=== PATIENT | male | born 1955 | race Hispanic/Latino ===

== ENCOUNTER 2021-09-18 16:05 | Inpatient (IN) | payer OTHER ==
--- NOTE | 2021-09-18 12:57 | R.PREADM ---
PRE-ADMISSION SCREENING FORM SCREENING DATE AND TIME 09/18/2021 08:45 (INTERACTIVE PROJECT MANAGER) ANTICIPATED REHAB ADMISSION DATE 09/20/2021 REFERRING FACILITY [facility] REFERRAL DATE AND TIME 09/17/2021 02:47 (INTERACTIVE PROJECT MANAGER) REFERRAL ROOM# [id number] ACUTE ADMIT DATE 09/15/2021 Previous Rehabilitation(s): No. 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 Charli Quiroga M.D. MR# [id number] NAME MICHEAL LIN ADDRESS [address] [place] [address] PHONE [facility] [id number] DATE OF 1955 AGE 66 SSN# [id number] GENDER male MARITAL STATUS Single (Never ) ADMIT FROM 02 - [facility] PRE-HOSPITAL LIVING SETTING 01 - Home (private home/apt. board/care, assisted living, alf, transitional living) HOME TYPE AND DETAILS Type of home: single family house # of steps to enter the residence: 0 # of steps within the residence: 0 # of levels in the residence: 1 PRE-HOSPITAL LIVING WITH Alone FAMILY SUPPORT Yes PRIMARY FAMILY CONTACT NAME CHAR WYNNE PRIMARY FAMILY CONTACT PHONE PRIMARY FAMILY CONTACT RELATIONSHIP Brother PHONE PRIMARY FAMILY CONTACT ON ADM.? no IS PRIMARY FAMILY CONTACT AUTH. REP.? no 1ST EMERGENCY CONTACT CHAR WYNNE 1ST CONTACT PHONE 1ST CONTACT RELATIONSHIP Brother PHONE 1ST CONTACT ON ADM. no IS 1ST CONTACT AUTH. REP.? no PHONE 2ND CONTACT ON ADM.? no PATIENT EMPLOYMENT STATUS Retired (for age) PATIENT EMPLOYER No Employer PAYOR INFORMATION: 1ST PAYOR NAME MEDICARE 1ST PAYOR PHONE [phone] 1ST PAYOR INJURY/ILLNESS DUE TO ACCIDENT? No ANOTHER DEMOCRAT RESPONSIBLE? No PRIMARY REHAB/ACUTE DIAGNOSIS: STROKE ONSET DATE 09/15/2021 REHAB IMPAIRMENT CATEGORY (KATELYNN): 01 Stroke (STR) MEETS 60% rule AFFECTED EXTREMITIES: RLE, and RUE PRIMARY DIAGNOSIS-RELATED SURGERIES: N/A RISK FOR COMPLICATIONS: - N/A HTN DM HPLD ACTIVE SMOKING SUMMARY OF ACUTE HOSPITALIZATION: Pt. is a 66 yo Right-handed male. On 09/15/2021 Pt. presented to [facility] with sudden onset of right-side weakness. On 09/15/2021 he was admitted to [facility] with diagnosis STROKE. His impairment category is Stroke 01 - Right Body (Left Brain) (01.2). Pre-morbidly, Pt. was independent/mod-I in Locomotion, Social Cognition, Balance, Transfers Control, and Safety Awareness; and he had good Sphincter Control, Self-Care, and Communication. Currently, he has deficits of Locomotion, Safety Awareness, Social Cognition, Balance, Transfers Cont rol, Sphincter Control, Self-Care, Endurance, and Communication. Pt. is now referred to [facility] for acute in-patient rehabilitation in order to maximize patient's functional independence in activities of daily living, strength, ROM, and mobi lity. Patient has realistic goal of being discharged at assistance level 7-Ind to reside at Home with Pt s elf. PAST MEDICAL HISTORY HTN DM HPLD ACTIVE SMOKING TIA MEDICATION ALLERGIES: No Known Drug Allergies (NKDA) ENVIRONMENTAL ALLERGIES: - Substance Allergies None Known - Other Allergies None Known CODE STATUS: Full code WEIGHT/HEIGHT/BMI: WEIGHT 194 lbs HEIGHT 6' 0" BMI 26.3 DIET: - Diet Type Regular - Diet - Solid Texture Regular - Diet - Liquid Texture Regular - Tube Feed N/A REVIEW OF SYSTEMS: - Gen Alert and awake Lying in bed No apparent distress Oriented to: person, time, and place - Vital Signs Temperature: 98.1 F SBP/DBP: 160/90 Pulse: 46 Resp: 18 Vital signs stable, afebrile - CVS RRR VITAL SIGNS Temperature: 98.1 F SBP/DBP: 160/90 Pulse: 46 Resp: 18 Vital signs stable, afebrile MEDICATIONS/TREATMENT: Other- See attached MAR (Medication Administration Record). CURRENT SPHINCTER CONTROL: Pre-hospital bladder status: unspecified # of bladder accidents in the last 7 days prior to screenin Pre-hospital bowel status: unspecified # of bowel accidents in the last 7 days prior to screenin Last Bowel Movement Date: 09/18/2021 CURRENT LOCOMOTION STATUS: distance walked 10 feet with rolling walker DETAILED CURRENT FUNCTIONAL STATUS: - Bladder accident frequency: 7-Ind - No accidents in the past 7 days - Bowel accident frequency: 7-Ind - No accidents in the past 7 days - Walking score based on distance walked: 0(N/A) score based on distance walked: 1(<=50ft) - Wheelchair score based on distance traveled: 0(N/A) QI SCORES: - Self-Care A. Eating 03-Partial/moderate assistance B. Oral hygiene 03-Partial/moderate assistance C. Toileting hygiene 03-Partial/moderate assistance E. Shower/bathe self 02-Substantial/maximal assistance F. Upper body dressing 03-Partial/moderate assistance G. Lower body dressing 02-Substantial/maximal assistance H. Putting on/taking off footwear 88-Not attempted due to medical condition or safety concerns - Mobility A. Roll left and right 03-Partial/moderate assistance B. Sit to lying 03-Partial/moderate assistance C. Lying to sitting on side of bed 03-Partial/moderate assistance D. Sit to stand 03-Partial/moderate assistance E. Chair/[id number] transfer 03-Partial/moderate assistance F. Toilet transfer 03-Partial/moderate assistance G. Car transfer 88-Not attempted due to medical condition or safety concerns I. Walk 10 feet 03-Partial/moderate assistance J. Walk 50 feet with two turns 88-Not attempted due to medical condition or safety concerns K. Walk 150 feet 88-Not attempted due to medical condition or safety concerns L. Walking 10 feet on uneven surfaces 88-Not attempted due to medical condition or safety concerns M. 1 step (curb) 88-Not attempted due to medical condition or safety concerns N. 4 steps 88-Not attempted due to medical condition or safety concerns O. 12 steps 88-Not attempted due to medical condition or safety concerns P. Picking up object 88-Not attempted due to medical condition or safety concerns R. Wheel 50 feet with two turns 88-Not attempted due to medical condition or safety concerns S. Wheel 150 feet 88-Not attempted due to medical condition or safety concerns - Bladder and Bowel Bladder continence Bowel continence - Endurance Fair - Balance Fair - Safety Awareness Fair CURRENT FUNC. DEFICITS: Self-Care, Mobility, Endurance, Balance, and Safety Awareness CURRENT / PREVIOUS ASSISTIVE DEVICES: Rolling Walker HISTORY OF FALLS. HAS THE PATIENT HAD TWO OR MORE FALLS IN THE PAST YEAR OR ANY FALL WITH INJURY IN T HE PAST YEAR?: No PRIOR SURGERY. DID THE PATIENT HAVE MAJOR SURGERY DURING THE 100 DAYS PRIOR TO ADMISSION?: No THERAPY NOTES FROM ACUTE CARE: Attached. SPECIAL NEEDS: - Safety Concerns Skin breakdown precautions needed due to skin breakdown risk PRECAUTIONS: - Weight Bearing Precaution WBAT right LE PATIENT NEEDS ACTIVE AND ONGOING THERAPEUTIC INTERVENTION OF MULTIPLE THERAPY DISCIPLINES, INCLUDING: - Dietary and Nutrition Adequate Nutrition. Nutritional Education. Nutritional Supplements. - Occupational Therapy Cognitive Retraining. Evaluate and Treat. ADL Training. Transfer Training. Adaptive Equipment. UE Str engthening. - Speech Therapy Cognitive Training. Expressive Language Skills. Memory Strategies. Receptive Language Skills. Speech Intelligibility Training. - Physical Therapy Gait Training. Balance Training. Evaluate and Treat. Transfer Training. Mobility Training. Safety Jaky reness. LE Strengthening. PATIENT NEEDS CLOSE MEDICAL SUPERVISION BY A REHABILITATION PHYSICIAN FOR: Coordination of Treatment Team PATIENT REQUIRES 24X7 REHAB NURSING FOR MEDICAL AND FUNCTIONAL MGT. OF THE FOLLOWING DEFICITS: Disease Management Medication Management Patient/Family Education Providing Safe Environment PATIENT REQUIRES INTENSIVE, COORDINATED INTERDISCIPLINARY APPROACH TO REHAB: Arranging Home Equipment/Services Discharge Planning Family Intervention/Training Community Service Coordinator/Case Management PATIENT REHAB POTENTIAL: Fernanda LIN is able and expected to receive 3 hours of individualized therapy daily on at least 5 of ev thomas 7 days Fernanda LIN's prognosis for significant practical improvement within a reasonable period of time appear s Good Expected level of measurable improvement will be of a practical value to Fernanda LIN's functional capac ity or adaptations to impairments Has a viable Discharge Plan Medically appropriate; condition is sufficiently stable to participate in intensive rehab program DISCHARGE PLAN: - Estimated Length of Stay (days) 17. - Consensus on plan Discharge plan has been discussed with primary caregiver. Patient/Family is in agreement with the mikel n. Primary caregiver is in agreement with the plan. - Patient/Family Goals Return home independently. - Planned Living Setting Upon Discharge Home, to live alone. Transitional Living. Primary caregiver: Pt self. RECOMMENDED CARE LEVEL: IRF RECOMMENDATION DETAILS: Recommended Admission to Comprehensive Rehabilitation Program to Increase Functional [place] SCREENER'S COMPLETENESS CONFIRMATION: - Screening Confirmation The patient data collection on this preadmission screening form is finished PHYSICIANS REVIEW AND ADMISSION DETERMINATION Admit - Based on my review of the Pre-Admission Screening results, in my medical judgment and experie nce, I concur with the findings and recommend admission to [facility], as this patient requires an IRF level of care. SIGNATURE PANEL: Oiler Bander - [electronically] signed by Nereyda Plasencia on 09/18/2021 at 11:38 (INTERACTIVE PROJECT MANAGER) Oiler Bander - [electronically] signed by Edy Lebron PT on 09/18/2021 at 12:23 (INTERACTIVE PROJECT MANAGER) Physician Reviewer - [electronically] signed by Dr. Charli Quiroga M.D. on 09/18/2021 at 12:56 (INTERACTIVE PROJECT MANAGER )
[2021-09-18] MEDS: ATORVASTATIN 80 MG TAB PO SCH (19:36)
[2021-09-18] MEDS: MELATONIN 3 MG TABLET PO PRN (19:36)
[2021-09-18] MEDS: FAMOTIDINE 20 MG TAB PO SCH (19:36)
[2021-09-18] MEDS ORDERED: PNEUMOCOCCAL VACCINE 0.5 ML IMVAC ONE (20:00)
[2021-09-18] MEDS ORDERED: INFLUENZA VACCINE (for 6+ mo) 0.5 ML DOSE IMVAC ONE (20:00)
[2021-09-18 20:09] LABS: Urine Appearance CLEAR (Clear); Urine Bilirubin NEGATIVE (Negative); Urine Blood 2+ (Negative); Urine Color YELLOW (Yellow); Urine Glucose NEGATIVE (Negative); Urine Protein NEGATIVE (Negative); Urine Urobilinogen 0.2 mg/dL (0.2-1.0)
[2021-09-18 20:44] LABS: Urine Bacteria 20-50 /HPF (NONE SEEN)
[2021-09-18 20:45] LABS: Urine Mucus 1+ /HPF (NONE SEEN)
[2021-09-18] MEDS: ACETAMINOPHEN 325 MG TABLET PO PRN (22:38)
[2021-09-19 06:13] LABS: Absolute Lymphocytes (CBC) 2.1 K/uL (0.7-4.9); Basophils % 0.7 % (0-1.3); Hematocrit 48.7 % (39.6-49.0); Lymphocytes % 17.2 % (15.3-44.8); RBC Red Blood Cell Count 5.27 M/uL (4.33-5.43)
[2021-09-19 06:36] LABS: Albumin 2.9 g/dL (3.4-5.0); BUN Blood Urea Nitrogen 12 mg/dL (7-18); Bicarbonate 24 mmol/L (21-32); Glucose Level 115 mg/dL (74-106); Magnesium 2.1 mg/dL (1.8-2.4); Potassium 3.9 mmol/L (3.5-5.1); Prealbumin 15.2 mg/dL (20-40); Sodium Level 138 mmol/L (136-145)
[2021-09-19] MEDS: FAMOTIDINE 20 MG TAB PO SCH ×2 (07:33→19:46)
[2021-09-19] MEDS: lisinopriL 5 MG TAB PO SCH (07:33)
[2021-09-19] MEDS: ENOXAPARIN 40 MG/0.4 ML SQ SCH (07:33)
[2021-09-19] MEDS: ASPIRIN 81 MG CHEWABLE TABLET PO SCH (07:34)
[2021-09-19] MEDS: CLOPIDOGREL 75 MG TABLET PO SCH (07:34)
[2021-09-19] MEDS: ACETAMINOPHEN 325 MG TABLET PO PRN (07:34)
[2021-09-19] MEDS: THIAMINE HCL 100 MG TABLET PO SCH (07:34)
--- NOTE | 2021-09-19 09:58 | P.RH.PN ---
Estimated Length of Stay: 17 Expected Discharge Date: 10/05/21 Discharge Disposition Plan: Home Family Support: Yes Senior Care Goal: Mobility, Transfers, Self Care Vital Signs: Last Vital Signs Temp 97 F 09/19/21 07:11 Pulse 49 L 09/19/21 07:11 Resp 16 09/19/21 07:11 BP 142/68 H 09/19/21 07:11 Pulse Ox 92 09/19/21 07:11 Laboratory: Laboratory Last Values WBC 12.10 K/uL (4.3-10.9) H 09/19/21 05:55 RBC 5.27 M/uL (4.33-5.43) 09/19/21 05:55 Hgb 16.8 g/dL (13.6-17.9) 09/19/21 05:55 Hct 48.7 % (39.6-49.0) 09/19/21 05:55 MCV 92.3 fL (80-100) 09/19/21 05:55 MCH 31.8 pg (27.0-35.0) 09/19/21 05:55 MCHC 34.4 g/dL (32.0-36.0) 09/19/21 05:55 RDW 12.8 % (12.1-15.2) 09/19/21 05:55 Plt Count 259 K/uL (152-406) 09/19/21 05:55 MPV 9.0 fL (7.6-11.3) 09/19/21 05:55 Neutrophils % 70.2 % (41.7-73.7) 09/19/21 05:55 Lymphocytes % 17.2 % (15.3-44.8) 09/19/21 05:55 Monocytes % 10.3 % (3.3-12.3) 09/19/21 05:55 Eosinophils % 1.6 % (0-4.4) 09/19/21 05:55 Basophils % 0.7 % (0-1.3) 09/19/21 05:55 Absolute Neutrophils 8.5 K/uL (1.8-8.0) H 09/19/21 05:55 Absolute Lymphocytes 2.1 K/uL (0.7-4.9) 09/19/21 05:55 Absolute Monocytes 1.3 K/uL (0.1-1.3) 09/19/21 05:55 Absolute Eosinophils 0.2 K/uL (0-0.5) 09/19/21 05:55 Absolute Basophils 0.1 K/uL (0-0.5) 09/19/21 05:55 Sodium 138 mmol/L (136-145) 09/19/21 05:55 Potassium 3.9 mmol/L (3.5-5.1) 09/19/21 05:55 Chloride 107 mmol/L (98-107) 09/19/21 05:55 Carbon Dioxide 24 mmol/L (21-32) 09/19/21 05:55 BUN 12 mg/dL (7-18) 09/19/21 05:55 Creatinine 0.57 mg/dL (0.55-1.3) 09/19/21 05:55 Estimated GFR > 90 mL/min (=/>90) 09/19/21 05:55 Glucose 115 mg/dL (74-106) H 09/19/21 05:55 Calcium 8.9 mg/dL (8.5-10.1) 09/19/21 05:55 Magnesium 2.1 mg/dL (1.8-2.4) 09/19/21 05:55 Albumin 2.9 g/dL (3.4-5.0) L 09/19/21 05:55 Prealbumin 15.2 mg/dL (20-40) L 09/19/21 05:55 Urine Color Yellow (Yellow) 09/18/21 18:55 Urine Appearance Clear (Clear) 09/18/21 18:55 Urine pH 6.0 (5.0-7.0) 09/18/21 18:55 Ur Specific [place] 1.020 (1.005-1.030) 09/18/21 18:55 Glucose (UA)(Auto) Negative (Negative) 09/18/21 18:55 Urine Ketones Negative (Negative) 09/18/21 18:55 Urine Blood 2+ (Negative) H 09/18/21 18:55 Urine Nitrite Negative (Negative) 09/18/21 18:55 Urine Bilirubin Negative (Negative) 09/18/21 18:55 Urine Urobilinogen 0.2 mg/dL (0.2-1.0) 09/18/21 18:55 Ur Leukocyte Esterase Negative (Negative) 09/18/21 18:55 Urine RBC 10-20 /HPF (NONE SEEN) H 09/18/21 18:55 Urine WBC <5 /HPF (<5) 09/18/21 18:55 Ur Squamous Epith Cells <5 /HPF (NONE SEEN) 09/18/21 18:55 Urine Bacteria 20-50 /HPF (NONE SEEN) H 09/18/21 18:55 Urine Mucus 1+ /HPF (NONE SEEN) 09/18/21 18:55 Urine Culture Reflexed Not needed 09/18/21 18:55 Urine Total Protein Negative (Negative) 09/18/21 18:55 Weight: 194 lb Physician Update: He is making fair progress with ambulation. He is moderate right thumb pain this morning. An x-ray is ordered. He has right leg circumduction with at least 3/5 right lower and 2/5 right upper extremity strength. His labs were reviewed. Comment: no skin breakdown reported Summary: Patient's care plan and intermission coordinator goals have been reviewed and revised as necessary. Please see the Rehabilitation Signature page for all necessary signatures.
--- NOTE | 2021-09-19 12:46 | RAD REPORT ---
EXAM DESCRIPTION: RAD - Hand Right 3 View - 09/19/2021 12:31 pm CLINICAL HISTORY: R/o fracture COMPARISON: Chest Pa And Lat (2 Views) dated 08/12/2021; Chest Single View dated 08/11/2021No comparis ons FINDINGS: No acute fracture. No malalignment. Soft tissue swelling is present at the first MCP joint . There are moderate degenerative changes at this location. Plate and screw fixation hardware at dist al radius. Radiocarpal joint space narrowing. IMPRESSION: No right hand fracture is identified. Moderate focal degenerative changes are present at the first MCP joint.
[2021-09-19] MEDS: TRAMADOL HCL 50 MG TAB PO PRN ×2 (15:31→19:55)
[2021-09-19] MEDS ORDERED: GUAIFENESIN/CODEINE 5ML UCUP PO PRN (19:31)
[2021-09-19] MEDS: ATORVASTATIN 80 MG TAB PO SCH (19:46)
[2021-09-19] MEDS: CRANBERRY FRUIT EXTRACT 400 MG CAP PO SCH (19:46)
[2021-09-19] MEDS: MAGNESIUM OXIDE 400 MG TAB PO SCH (19:46)
[2021-09-19] MEDS: MELATONIN 3 MG TABLET PO PRN (19:47)
[2021-09-19] MEDS: DOCUSATE NA/SENNA CONC 1 TAB PO PRN (19:47)
[2021-09-20] MEDS: ACETAMINOPHEN 325 MG TABLET PO PRN (05:49)
[2021-09-20] MEDS: ENOXAPARIN 40 MG/0.4 ML SQ SCH (06:47)
[2021-09-20] MEDS: TRAMADOL HCL 50 MG TAB PO PRN ×3 (06:47→14:15)
[2021-09-20] MEDS: THIAMINE HCL 100 MG TABLET PO SCH (08:13)
[2021-09-20] MEDS: ASPIRIN 81 MG CHEWABLE TABLET PO SCH (08:13)
[2021-09-20] MEDS: MAGNESIUM OXIDE 400 MG TAB PO SCH ×2 (08:13→19:19)
[2021-09-20] MEDS: lisinopriL 5 MG TAB PO SCH (08:13)
[2021-09-20] MEDS: FAMOTIDINE 20 MG TAB PO SCH ×2 (08:13→19:19)
[2021-09-20] MEDS: CRANBERRY FRUIT EXTRACT 400 MG CAP PO SCH ×2 (08:13→19:19)
[2021-09-20] MEDS: CLOPIDOGREL 75 MG TABLET PO SCH (08:14)
--- NOTE | 2021-09-20 15:11 | RAD REPORT ---
EXAM DESCRIPTION: US - Extremity Venous Uni Ltd - 09/20/2021 2:37 pm CLINICAL HISTORY: pain and swelling COMPARISON: None. TECHNIQUE: Real-time sonographic evaluation of the right lower extremity deep venous systems was per formed. FINDINGS: Normal compressibility, flow augmentation, phasic flow and spontaneous flow are identified in the right lower extremity common femoral, superficial femoral, popliteal and posterior tibial vei ns. No intraluminal filling defects seen. IMPRESSION: No DVT in the right lower extremity.
[2021-09-20] MEDS: ATORVASTATIN 80 MG TAB PO SCH (19:19)
[2021-09-20] MEDS: DOCUSATE NA/SENNA CONC 1 TAB PO PRN (19:20)
[2021-09-20] MEDS: MELATONIN 3 MG TABLET PO PRN (21:05)
--- OUTSIDE RECORDS SUMMARY | 2021-09-20 21:50 | XMS REPORT | Continuity of Care Document ---
:1955 Author Organization [facility] t Address [address] [place] [address] Care Team Providers Name Role Phone Earle Blanco MD Primary Care Physician NEIL PEREZ Attending Clinician Unavailable NEIL PEREZ Attending Clinician Unavailable Romy SHELTON Attending Clinician Unavailable ESTEVAN COLMENARES Attending Clinician Unavailable María Bazzi Attending Clinician Estevan Colmenares MD Attending Clinician King CONCEPCION Attending Clinician Unavailable King Concepcion DO Attending Clinician Harrison Blanco MD Attending Clinician ROSA ISELA Attending Clinician Unavailable ESTEVAN COLMENARES Admitting Clinician Unavailable Estevan Colmenares MD Admitting Clinician ROSA ISELA Admitting Clinician Unavailable Payers Payer Name Policy Type Policy Number Effective Date Expiration Date S ource MEDICARE PART A [id number] 2020 \\T\\ B 00:00:00 Problems Condition Condition Condition Status Onset Resolution Last Treating Co mments Source Name Details Category Date Date Treatment Clinician Date 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, infarct, 1-10 ity of acute acute 00:00: [address] 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 00:00: [place] 00 Medical Branch Dysarthria Dysarthria Disease Active 2020-11 U nivers 11-16 ity of 00:00: [place] [facility] Slurred Slurred Disease Active 2020-11 Univers speech speech 11-16 ity of 00:00: [place] [facility] Primary Primary Disease Active 2020-11 Univers hypertensi hypertensi 11-09 it y of on on 00:00: [place] [facility] 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 11-09 it y of emia emia 00:00: [place] 00 Medical Branch Transient Transient Disease Active 2020-11 Uni vers ischemic ischemic 027 ity of attack, attack, 00:00: [place] acute acute 00 Medical Branch Allergies, Adverse Reactions, Alerts Allergy Allergy Status Severity Reaction(s) Onset Inactive Treating Comm ents Source Name Type Date Date Clinician NO KNOWN Drug Active Univers ALLERGIE Class ity of S [facility] Social History Social Habit Start Date Stop Date Quantity Comments Source Exposure to Not sure [facility] SARS-CoV-2 [facility] [place] (event) Tobacco use and 2021-09-03 2021-09-03 Current user Univers it of [place] exposure 00:00:00 00:00:00 Medical Branch [facility][birth year] At [birth year] [facility] [place] [facility] Medical Branch Smoking Status Start Date Stop Date Source Current every day smoker 2021-09-03 00:00:00 [facility] versity [facility] Medications Ordered Filled Start Stop Current Ordering Indication Dosage Frequency Signature Comments Components Source Medication Medication Date Date Medication? Clinician (SIG) Name Name aspirin 81 2020-11 Yes [id number] 81mg Take 1 Univers mg chewable 1-12 tablet by ity of tablet 00:00: mouth [place] 00 daily. Medical Branch clopidogreL 2020-11 Yes [id number] 75mg Take 1 Univers 75 mg 1-12 tablet by ity of tablet 00:00: mouth [place] 00 daily. Medical Branch lisinopriL 2020-11 Yes [id number] 2.5mg Take 1 Univers 2.5 mg 1-12 tablet by ity of tablet 00:00: mouth [place] 00 daily. Medical Branch thiamine 2020-11 Yes [id number] 100mg Take 1 U nivers 100 mg 1-12 tablet by ity of tablet 00:00: mouth [place] 00 daily. Medical Branch aspirin 81 2020-11 Yes [id number] 81mg Take 1 Univers mg chewable 1-12 tablet by ity of tablet 00:00: mouth [place] 00 daily. [facility] clopidogreL 2020-11 Yes [id number] 75mg Take 1 Univers 75 mg 1-12 tablet by ity of tablet 00:00: mouth [place] 00 daily. [facility] lisinopriL 2020-11 Yes [id number] 2.5mg Take 1 Univers 2.5 mg 1-12 tablet by ity of tablet 00:00: mouth [place] 00 daily. [facility] thiamine 2020-11 Yes [id number] 100mg Take 1 U nivers 100 mg 1-12 tablet by ity of tablet 00:00: mouth [place] 00 daily. [facility] lisinopriL 2020-11 Yes 2.5mg 2.5 mg, Uni vers (PRINIVIL,Z 1-11 Oral, ity of ESTRIL) 15:00: DAILY, [place] tablet 2.5 00 First dose Med ical mg on [place] Branch 09/18/21 at 0900, Until Discontinu ed, Routine atorvastati 2020-11 Yes [id number] 80mg Take 1 Univers n 80 mg 1-11 tablet by ity of tablet 00:00: mouth at [place] 00 bedtime. [facility] atorvastati 2020-11 Yes [id number] 80mg Take 1 Univers n 80 mg 1-11 tablet by ity of tablet 00:00: mouth at [place] 00 bedtime. [facility] clopidogreL 2020-11 Yes 75mg 75 mg, Univ ers (PLAVIX) 1-10 Oral, ity of tablet 75 15:00: DAILY, [place] mg 00 First dose Medical on Wed Branch 09/17/21 at 0900, Until Discontinu ed, Routine
membership coordinator approving Restricted medication : JOHN COLMENARES RA iohexol 2020-11- No [id number] 80mL 80 mL, Un james (OMNIPAQUE 1-10 11-10 Intravenou it y of 350 04:15: 04:14 s, ONCE, 1 [place] BULK-100 00 :00 dose, On Medical mL) [facility] Branch injection 09/16/21 at 80 mL 2215, Routine methocarbam 2020-11- No 500mg 500 mg, U nivers oL 1-10 11-10 Oral, ity of (ROBAXIN) 04:00: 03:04 ONCE, 1 [place] tablet 500 00 :00 dose, On Medic al mg Branch 09/16/21 at 2200, Routine magnesium 2020-11- No 2000mg 2,000 mg, Univers sulfate in 11-17 IV ity of water 2 04:00: 05:24 Infusion[place] gram/50 mL 00 :00 ONCE, 1 Medica l (4 %) 2,000 dose, On Bran ch mg Tue piggyback 09/16/21 at 2200 atorvastati 2020-11 Yes 80mg 80 mg, Univ ers n (LIPITOR) 11-17 Oral, QHS, it y of tablet 80 03:00: First dose [place] mg 00 on [facility] Medical 09/16/21 at Branch 2100, Until Discontinu ed, Routine enoxaparin 2020-11 Yes 40mg 40 mg, Unive rs (LOVENOX) 11-16 Subcutaneo ity of injection 23:00: [place], DAILY, [place] 40 mg 00 First dose Medical on [facility] Branch 09/16/21 at 1700, Until Discontinu ed, Routine barium 2020-11- No [id number] 30mL 30 mL, Uni vers sulfate 11-16 Oral, ity of (E-Z-HD 20:45: 20:45 ONCE, 1 [place] BARIUM) 98 00 :00 dose, On Medic al % oral Wed Branch suspension 09/16/21 at 30 mL 1445, Routine barium 2020-11- No [id number] 30mL 30 mL, Uni vers sulfate-NO 11-16 Oral, ity of CHARGE- 20:45: 20:45 ONCE, 1 [place] (VARIBAR 00 :00 dose, On Medical NECTOR) 40 Tue Branch % (w/v) 09/16/21 at oral 1445, suspension Routine 30 mL Saline 2020-11 Yes [id number] 6mL 6 mL, Unive rs Bubble 11-16 Injection, ity of Study 18:18: SEE-INSTRU [place] 13 CTIONS, Medical Starting Branch on Wed09/16/21 at 1218, Until Discontinu ed, Routine NaCl 0.9% 2020-11 Yes 1000mL at 100 Univ ers (NS) IV 11-16 mL/hr, IV ity of infusion 17:30: Infusion, [place] 1,000 mL 00 CONTINUOUS Medic al , Starting Branch on Wed09/16/21 at 1130, Until Discontinu ed, Routine&lt ;br>To keep vein open.
thiamine 2020-11 Yes 100mg 100 mg, Unive rs (VITAMIN 11-16 Oral, ity of B1) tablet 15:00: DAILY, [place] 100 mg 00 First dose Medical on [facility] 09/16/21 at 0900, Until Discontinu ed, Routine aspirin 2020-11 Yes 81mg 81 mg, Univers chewable 11-16 Oral, ity of tablet 81 15:00: DAILY, [place] mg 00 First dose Medical on [facility] 09/16/21 at 0900, Until Discontinu ed, Routine clopidogreL 2020-11- No 300mg 300 mg, U nivers (PLAVIX) 11-16 Oral, ity of tablet 300 15:00: 06:11 DAILY, [place] mg 00 :07 First dose Medical on [facility] 09/16/21 at 0900, Until Discontinu ed, Routine famotidine 2020-11 Yes 20mg 20 mg, Unive rs (PEPCID AC) 11-16 Oral, BID, it y of tablet 20 14:00: First dose [place] mg 00 on [facility] 09/16/21 at Branch 0800, Until Discontinu ed, Routine NaCl 0.9% 2020-11- No 1000mL at 150 Uni vers (NS) IV 11-16 mL/hr, IV ity of infusion 14:00: 17:22 Infusion, [place] 1,000 mL 00 :48 CONTINUOUS Medic al , Starting Branch on Wed09/16/21 at 0800, Until Wed09/16/21 at 1122, Routine
To keep vein open.
LORazepam 2020-11- No 1mg 1 mg, Univer s (ATIVAN) 11-16 Oral, ity of tablet 1 mg 07:45: 08:54 ONCE, 1 [place] 00 :00 dose, On Medical [facility] 09/16/21 at 0145, Routine NaCl 0.9% 2020-11- No 1000mL at 50 Univ ers (NS) IV 11-1609 mL/hr, IV ity of infusion 07:00: 13:49 Infusion, [place] 1,000 mL 00 :46 CONTINUOUS Medic al , Starting Branch on Wed09/16/21 at 0100, Until Wed09/16/21 at 0749, Routine
To keep vein open.
labetaloL 2020-11 Yes 10mg 10 mg, Univer s (NORMODYNE) 11-16 Slow IV ity o f injection 06:52: Push, PRN, [place] 10 mg 04 Starting Medical on Wed Branch 09/16/21 at 0052, Until Discontinu ed, Routine, Hypertensi on SBP>220, DBP>110 acetaminoph 2020-11 Yes 325mg 325 mg, Un jamse en 11-16 Oral, ity of (TYLENOL) 06:52: Q6HPRN, [place] tablet 325 00 Starting Medic al mg on Wed09/16/21 at 0052, Until Discontinu ed, Routine, Pain (scale 1-3), Temp > 37.5 C iopamidol 2020-11- No [id number] 100mL 100 mL, Univers (ISOVUE 11-15 Intravenou ity o f 370-500 mL) 17:32: 17:32 s, ONCE, 1 [place] injection 00 :00 dose, On Medica l 100 mL [facility] 09/15/21 at 1145, Routine atorvastati 2020-11 Yes [id number] 20mg Take 1 Univers n 20 mg 1-02 tablet by ity of tablet 00:00: mouth at [place] 00 bedtime. Medical Branch amLODIPine 2020-11 Yes [id number] 10mg Take 1 U nivers 10 mg 1-02 tablet by ity of tablet 00:00: mouth [place] 00 daily. Medical Branch atorvastati 2020-11 Yes [id number] 20mg Take 1 Univers n 20 mg 1-02 tablet by ity of tablet 00:00: mouth at [place] 00 bedtime. Medical Branch amLODIPine 2020-11 Yes [id number] 10mg Take 1 U nivers 10 mg 1-02 tablet by ity of tablet 00:00: mouth [place] 00 daily. Medical Branch atorvastati 2020-11 Yes [id number] 20mg Take 1 Univers n 20 mg 11-09 tablet by ity of tablet 00:00: mouth at [place] 00 bedtime. Medical Branch amLODIPine 2020-11 Yes [id number] 10mg Take 1 U nivers 10 mg -02 tablet by ity of tablet 00:00: mouth [place] 00 daily. Medical Branch atorvastati 2020-11 Yes [id number] 20mg Take 1 Univers n 20 mg -02 tablet by ity of tablet 00:00: mouth at [place] 00 bedtime. Medical Branch amLODIPine 2020-11 Yes [id number] 10mg Take 1 U nivers 10 mg - tablet by ity of tablet 00:00: mouth [place] 00 daily. Medical Branch amLODIPine 2020-11- No [id number] 10mg Take 1 Univers 10 mg -09-18 tablet by ity of tablet 00:00: 00:00 mouth [place] 00 :00 daily. Medical Branch atorvastati 2020-11- No [id number] 20mg Take 1 Univers n 20 mg 11-09 tablet by ity of tablet 00:00: 00:00 mouth at [place] 00 :00 bedtime. Medical Branch Vital Signs Vital Name Observation Time Observation Value Comments Source Systolic blood 2021-09-18 18:03:00 139 mm[Hg] Univer sity of pressure [facility] Diastolic blood 2021-09-18 18:03:00 74 mm[Hg] Unive rsity of [facility] Heart rate 2021-09-18 18:03:00 53 /min [facility] Body temperature 2021-09-18 18:03:00 35.83 Damari [facility] Respiratory rate 2021-09-18 18:03:00 18 /min [facility] Oxygen saturation in 2021-09-18 18:03:00 95 /min [facility] Arterial blood by [facility] Pulse oximetry [place] Body height 2021-09-16 05:00:00 182.9 cm [facility] Body weight 2021-09-16 05:00:00 88 kg [facility] BMI 2021-09-16 05:00:00 26.31 kg/m2 [facility] Systolic blood 2021-09-15 20:00:00 156 mm[Hg] Univer sity of pressure [place] [facility] Diastolic blood 2021-09-15 20:00:00 88 mm[Hg] Unive rsity of pressure [facility] Heart rate 2021-09-15 20:00:00 55 /min Universi ty of [facility] Oxygen saturation in 2021-09-15 20:00:00 99 /min University of Arterial blood by [facility] Pulse oximetry Branch Respiratory rate 2021-09-15 19:00:00 23 /min Univ ersity of [facility] Body temperature 2021-09-15 16:54:00 36.56 Damari Univ ersity of [facility] Body height 2021-09-15 16:54:00 182.9 cm Universi ty of [facility] Body weight 2021-09-15 16:54:00 89.359 kg Universi ty of [facility] BMI 2021-09-15 16:54:00 26.72 kg/m2 Universi ty of [facility] Systolic blood 2021-09-09 15:24:00 164 mm[Hg] Univer sity of pressure [facility] Branch Diastolic blood 2021-09-09 15:24:00 90 mm[Hg] Unive rsity of pressure [facility] Heart rate 2021-09-09 15:24:00 58 /min Universi ty of [facility] Body temperature 2021-09-09 15:24:00 36.56 Damari Univ ersity of [facility] Respiratory rate 2021-09-09 15:24:00 18 /min Univ ersity of [facility] Body weight 2021-09-09 15:24:00 88.905 kg Universi ty of [place] [facility] [place] BMI 2021-09-09 15:24:00 26.58 kg/m2 Universi ty [facility] Oxygen saturation in 2021-09-09 15:24:00 98 /min University of Arterial blood by [facility] Pulse oximetry Branch Procedures Procedure Date / Time Performing Clinician Source Performed [place] MODIFIED BARIUM 2021-09-16 21:16:00 [facility] Branch TRANSTHORACIC ECHO (TTE) 2021-09-16 16:32:00 [facility] MAGNESIUM 2021-09-16 10:32:00 [facility] HEPATIC FUNCTION PANEL 2021-09-16 10:32:[address] [facility] ([id number]) (ALB,T.PRO,BILI [facility] T,BU/BC,ALT,AST,ALK PHOS) BASIC METABOLIC PANEL 2021-09-16 10:32:00 [facility] (NA, K, CL, CO2, Medical Branch GLUCOSE, BUN, CREATININE, CA) LIPID PANEL 2021-09-16 10:32:00 [facility] ([id number])(TOTAL [facility] CHOLESTEROL, TRIGLYCERIDES, HDL) MR STROKE BRAIN WO 2021-09-16 09:35:[facility] HEAD WO CONTRAST 2021-09-16 03:02:42 Kirstie Amin [facility] CONSENT/REFUSAL FOR 2021-09-15 23:28:37 Doctor Unassigned, No Un [facility] DIAGNOSIS AND TREATMENT Name Medical Branch XR CHEST 1 VW 2021-09-15 17:45:24 Ayde Concepcion [facility] CT STROKE ANGIOGRAM HEAD 2021-09-15 17:40:[address] [facility] CT STROKE ANGIOGRAM NECK 2021-09-15 17:40:[address] [facility] CT STROKE HEAD WO 2021-09-15 17:34:52 Ayde Concepcion [facility] CONTRAST [facility] LIPASE 2021-09-15 17:07:00 Ayde Concepcion [facility] TROPONIN I 2021-09-15 17:07:00 Ayde Concepcion [facility] COMP. METABOLIC PANEL 2021-09-15 17:07:00 Ayde Concepcion [facility] ([id number]) [facility] CBC WITH DIFF 2021-09-15 17:07:00 Ayde Concepcion [facility] PROTHROMBIN TIME / INR 2021-09-15 17:07:00 Ayde Conce[facility] ACTIVATED PARTIAL 2021-09-15 17:07:00 Ayde Concepcion [facility] COVID-19 (ID NOW RAPID 2021-09-15 17:07:00 Ayde Concepcion Un [facility] TESTING) Medical Branch GLYCOSYLATED HEMOGLOBIN 2021-09-15 17:07:00 Codie Mathis [facility] (A1C) Medical Branch CONSENT/REFUSAL FOR 2021-09-15 16:49:37 Doctor Unassigned, No Un [facility] DIAGNOSIS AND TREATMENT Name Medical Branch Encounters Start End Encounter Admission Attending Care Care Encounter Source Date/Time Date/Time Type Type Clinicians Facility Department ID 2021-09-19 2021-09-19 Outpatient [facility]IL [facility] [id number] Univers 13:00:00 13:00:00 MIKHAIL PEREZ [id number] [facility] 2021-09-19 2021-09-19 Outpatient MIKHAIL [facility] [id number] Univers 13:00:00 13:00:00 MIKHAIL PEREZ [facility] 2021-09-19 2021-09-19 Transition IBRAHIMA StantonRamy [id number] Univers 00:00:00 00:00:00 of Care Garima CONRADY [id number] it y [facility] 4[place]2.7.2.[place] [id number] [facility] 403 Branch 2021-09-15 2021-09-18 Inpatient X LAINEY [facility] CARMEN [id number] Univers 17:50:00 14:20:00 JOHN [facility] 2021-09-15 2021-09-18 Hospital Kirstie Amin [id number] Univers 17:50:00 14:20:00 Encounter John Colmenares 35 [facility]13.10 [facility] 4.2.7.2.686 [place] [id number] [facility] 095 Branch 2021-09-15 2021-09-15 Emergency X JAMEY SCHERIBERTO ERT [id number] Univers 10:57:00 14:32:00 AYDE [facility] 2021-09-15 2021-09-15 Emergency [facility] [id number] [facility] 10:57:00 14:32:00 Ayde GUERRA [id number] ity of [place]2.[place]2.[place] [id number] [place] [address] Branch 2021-09-15 2021-09-15 Telephone BlancoEarle [id number] Univers 00:00:00 00:00:00 Y PEDIATRIC 350.1.13.10 ity [place]2.[place] [id number] [address] 2021-09-15 2021-09-15 Telephone BlancoEarle [id number] Univers 00:00:00 00:00:00 Y PEDIATRIC 350.1.13.10 it[place]2.[place] [id number] [address] 2021-09-09 2021-09-09 Office BlancoEarle [id number] Univers 10:16:20 10:57:50 Visit Y PEDIATRIC 350.1.13.10 ity [place]2.[place] [id number] [address] 2021-09-03 2021-09-05 [id number] [facility] 13:23:00 11:51:[address] [facility] Results Test Description Test Time Test Comments Results Result Comments Source HEPATIC FUNCTION PANEL (04335) (ALB,T.PRO,BILI 2021-09-16 15 :45:58 T,BU/BC,ALT,AST,ALK PHOS) Test Item Value Reference Range Interpretation Comme nts TOTAL BILI (test code = 4825835144) 0.9 mg/dL 0.1-1.1 BILI UNCON (test code = 8198855636) 0.6 mg/dL 0.1-1.1 BILI CONJ (test code = 2851463911) 0.0 mg/dL 0.0-0.3 T PROTEIN (test code = 4641378808) 6.1 g/dL 6.3-8.2 L ALBUMIN (test code = 8104905979) 3.4 g/dL 3.5-5.0 L ALK PHOS (test code = 4953723194) 86 U/L 34-122 ALTv (test code = 1742-6) 17 U/L 5-50 AST(SGOT) (test code = 1774379554) 20 U/L 13-40 Lab Interpretation (test code = 77629-8) Abnormal [facility] LIPID PANEL (04978)(TOTAL CHOLESTEROL, TRIGLYCERIDES, HDL)2021-09-16 13:28:06 Test Item Value Reference Range Interpretation Comments CHOL (test code = 122 mg/dL 120-200 0221925976) HDL (test code = 35 mg/dL >40 L 5085334449) HDLC RATIO (test code = See_Comment [Au tomated message] 0818181614) The system [employer] generated this result transmit toño reference range : <=5.0. The refe rence range was not u sed to interpret th is result as normal/abnormal . TRIG (test code = 92 mg/dL 30-170 3887664307) LDL CHOL (test code = 69 mg/dL See_Comment [Auto mated message] 88893-3) The system [employer] generated this result transmit toño reference range : <=160. The refe rence range was not u sed to interpret th is result as normal/abnormal . VLDL (test code = 18 mg/dL 5-60 7967765295) Lab Interpretation (test Abnormal code = 51565-6) [facility] Metabolic Panel (Na, K, Cl, CO2, Glucose, BUN, Creatinine, Ca)2021-09-16 12:17:22 Test Item Value Reference Range Interpretation Comments NA (test code = 137 mmol/L 135-145 1602471830) K (test code = 3.9 mmol/L 3.5-5.0 0956412873) CL (test code = 105 mmol/L 98-108 7448848011) CO2 TOTAL (test code = 22 mmol/L 23-31 L 6301920849) AGAP (test code = 2-16 1555877705) BUN (test code = 7 mg/dL 7-23 8381925842) GLUCOSE (test code = 95 mg/dL 70-110 2457207975) CREATININE (test code = 0.54 mg/dL 0.60-1.25 L 2636234946) CALCIUM (test code = 9.3 mg/dL 8.6-10.6 2200413058) eGFR (test code = mL/min/1.73m2 9064361142) GINO (test code = GINO) Association of Glomerular Filtration Rate (GFR) and Staging of Kidney Disease* + --+ --+ ------+| GFR (mL/min/1.73 m2) ?| With Kidney Damage ?| ?Without Kidney Damage+ --------+ --------+ +| ?>90 ?| ?Stage one ?| ? Normal ?+ ---+ ---+ -------+| ?60-89 ?| ?Stage two ?| ? Decreased GFR ? + --+ --+ ------+| ?30-59 ?| ?Stage three ?| ? Stage three ? + --+ --+ ------+| ?15-29 ?| ?Stage four ? | ? Stage four ?+ ---+ ---+ -------+| ?<15 (or dialysis) ? ?| ?Stage five ? | ? Stage five ?+ ---+ ---+ -------+ *Each stage assumes the associated GFR level has been in effect for at least three months. ?Stages 1 to 5, with or without kidney disease, indicate chronic kidney disease. Notes: Determination of stages one and two (with eGFR >59mL/min/1.73 m2) requires estimation of kidney damage for at least three months as defined by structural or functional abnormalities of the kidney, manifested by either:Pathological abnormalities or Markers of kidney damage (including abnormalities in the composition of the blood or urine or abnormalities in imaging tests). Lab Interpretation Abnormal (test code = 35019-1) [facility], [id number] 12:17:22 Test Item Value Reference Range Interpretation Comments MAGNESIUM (test code = 2890725300) 1.8 mg/dL 1.7-2.4 Lab Interpretation (test code = Normal 74218-8) [facility] (A1C)2021-09-16 08:13:09 Test Item Value Reference Range Interpretation Comments HGB A1C (test code = 5.6 % 4.0-5.7 4548-4) GINO (test code = GINO) Reference RangesNormal: <5.7%Prediabetes: 5.7 - 6.4%Diabetes: > 6.5% Lab Interpretation (test Normal code = 33500-3) [facility] [id number] 17:46:25 Test Item Value Reference Interpretation Comments Range TROPONIN I (test <0.012 See_Comment [Automated code = 4545589020) message] The system which generated this result transmitted reference range : <=0.034 ng/mL. The reference range was not used to interpret this result as normal/abnormal . GINO (test code = Reference (Normal) GINO) Range (defined by the 99th percentile reference limit): <= 0.034 ng/mL Note: Cardiac troponin begins to rise 3-4 hours after the onset of ischemia. Repeat in 4-6 hours if the sample was drawn within 3-4 hours of the onset of the symptom and found normal. Diagnosis of myocardial injury is made with acute changes in cTn concentrations with at least one serial sample above the 99th percentile upper reference limit (URL), taken together with the patient's clinical presentation. Biotin has been reported to cause a negative bias, interpret results relative to patient's use of biotin. Lab Interpretation Normal (test code = 75431-7) [facility] METABOLIC PANEL (66083)2021-09-15 17:36:46 Test Item Value Reference Range Interpretation Comments NA (test code = 134 mmol/L 135-145 L 8601963400) K (test code = 4.1 mmol/L 3.5-5.0 5304317823) CL (test code = 103 mmol/L 98-108 7940471892) CO2 TOTAL (test code = 25 mmol/L 23-31 0486658768) AGAP (test code = 2-16 2376250975) BUN (test code = 8 mg/dL 7-23 4384286270) GLUCOSE (test code = 178 mg/dL 70-110 H 2100085123) CREATININE (test code = 0.59 mg/dL 0.60-1.25 L 5132191763) TOTAL BILI (test code = 0.7 mg/dL 0.1-1.0 6005959541) CALCIUM (test code = 9.8 mg/dL 8.6-10.6 1150041989) T PROTEIN (test code = 7.0 g/dL 6.3-8.2 0663247587) ALBUMIN (test code = 3.9 g/dL 3.5-5.0 2171172403) ALK PHOS (test code = 91 U/L 34-122 2858217682) ALTv (test code = 20 U/L 5-50 1742-6) AST(SGOT) (test code = 22 U/L 13-40 8261058113) eGFR (test code = mL/min/1.73m2 8576491351) GINO (test code = GINO) Association of Glomerular Filtration Rate (GFR) and Staging of Kidney Disease* + --+ --+ ------+| GFR (mL/min/1.73 m2) ?| With Kidney Damage ?| ?Without Kidney Damage+ --------+ --------+ +| ?>90 ?| ?Stage one ?| ? Normal ?+ ---+ ---+ -------+| ?60-89 ?| ?Stage two ?| ? Decreased GFR ? + --+ --+ ------+| ?30-59 ?| ?Stage three ?| ? Stage three ? + --+ --+ ------+| ?15-29 ?| ?Stage four ? | ? Stage four ?+ ---+ ---+ -------+| ?<15 (or dialysis) ? ?| ?Stage five ? | ? Stage five ?+ ---+ ---+ -------+ *Each stage assumes the associated GFR level has been in effect for at least three months. ?Stages 1 to 5, with or without kidney disease, indicate chronic kidney disease. Notes: Determination of stages one and two (with eGFR >59mL/min/1.73 m2) requires estimation of kidney damage for at least three months as defined by structural or functional abnormalities of the kidney, manifested by either:Pathological abnormalities or Markers of kidney damage (including abnormalities in the composition of the blood or urine or abnormalities in imaging tests). Lab Interpretation Abnormal (test code = 02651-7) [facility], [id number] 17:36:40 Test Item Value Reference Range Interpretation Comments LIPASE (test code = 1921898231) 155 U/L 0-220 Lab Interpretation (test code = Normal 51543-8) [facility]ina[facility]TT2021-11-08 17:26:42 Test Item Value Reference Range Interpretation Comments APTT Patient (test See_Comment [Automat ed code = 3173-2) message] The system which generated this result transmitted reference range : 23 - 38 Seconds . The reference range was not used to interpr et this result as normal/abnormal . GINO (test code = GINO) The [facility] patient population mean normal value for aPTT is 30 seconds. Lab Interpretation Normal (test code = 67658-6) [facility] / [id number] 17:24:20 Test Item Value Reference Range Interpretation Comments PROTIME PATIENT (test See_Comment [Auto mated message] code = 5964-2) The system wh ich generated this result transmitted ref erence range: 12.0 - 1 4.7 Seconds. The re ference range was not u sed to interpret this result as normal/abnor mal. INR (test code = 6301-6) Nor mal INR <1.1; Warfarin Therap eutic range 2.0 to 3. 0 or 2.5 to 3.5, dep ending upon the indica tions. Lab Interpretation (test Normal code = 57768-7) [facility] WITH [id number] 17:15:41 Test Item Value Reference Range Interpretation Comments WBC (test code = See_Comment [Automated 7390-2) message] The sy stem which generated this result transmitted reference range : 4.20 - 10.70 10*3/?L. The reference range was not used to interpret this result as normal/abnormal . RBC (test code = See_Comment H [Automated 169-8) message] The sy stem which generated this result transmitted reference range : 4.26 - 5.52 10*6/?L. The reference range was not used to interpret this result as normal/abnormal . HGB (test code = 17.8 g/dL 12.2-16.4 H 718-7) HCT (test code = 51.0 % 38.4-49.3 H 4544-3) MCV (test code = 92.1 fL 81.7-95.6 787-2) MCH (test code = 32.1 pg 26.1-32.7 785-6) MCHC (test code = 34.9 g/dL 31.2-35.0 786-4) RDW-SD (test code = 40.6 fL 38.5-51.6 12567-4) RDW-CV (test code = 11.9 % 12.1-15.4 L 788-0) PLT (test code = See_Comment [Automated 777-3) message] The sy stem which generated this result transmitted reference range : 150 - 328 10*3/ ?L. The reference r yamil was not used to interpret this result as normal/abnormal . MPV (test code = 10.5 fL 9.8-13.0 63297-8) NRBC/100 WBC (test See_Comment [Automat ed code = 8392424535) message] The system which generated this result transmitted reference range : 0.0 - 10.0 /100 WBCs. The refer ence range was not u sed to interpret th is result as normal/abnormal . NRBC x10^3 (test code <0.01 See_Comment [Auto mated = [id number]) message] The s ystem which generated this result transmitted reference range : 10*3/?L. The reference range was not used to interpret this result as normal/abnormal . GRAN MAT (NEUT) % 64.5 % (test code = 770-8) IMM GRAN % (test code 0.30 % = 5954104638) LYMPH % (test code = 25.5 % 736-9) MONO % (test code = 7.9 % 5905-5) EOS % (test code = 1.0 % 713-8) BASO % (test code = 0.8 % 706-2) GRAN MAT x10^3(ANC) 5.75 10*3/uL 1.99-6.95 (test code = 0695768469) IMM GRAN x10^3 (test 0.03 10*3/uL 0.00-0.06 code = 2525811453) LYMPH x10^3 (test code 2.27 10*3/uL 1.09-3.23 = 731-0) MONO x10^3 (test code 0.70 10*3/uL 0.36-1.02 = 742-7) EOS x10^3 (test code = 0.09 10*3/uL 0.06-0.53 711-2) BASO x10^3 (test code 0.07 10*3/uL 0.01-0.09 = 704-7) Lab Interpretation Abnormal (test code = 84270-4) [facility]"
[2021-09-21] MEDS: TRAMADOL HCL 50 MG TAB PO PRN ×2 (08:11→20:47)
[2021-09-21] MEDS: ENOXAPARIN 40 MG/0.4 ML SQ SCH (08:13)
[2021-09-21] MEDS: lisinopriL 5 MG TAB PO SCH ×2 (08:14→19:52)
[2021-09-21] MEDS: CRANBERRY FRUIT EXTRACT 400 MG CAP PO SCH ×2 (08:14→19:52)
[2021-09-21] MEDS: ASPIRIN 81 MG CHEWABLE TABLET PO SCH (08:14)
[2021-09-21] MEDS: THIAMINE HCL 100 MG TABLET PO SCH (08:15)
[2021-09-21] MEDS: CLOPIDOGREL 75 MG TABLET PO SCH (08:15)
[2021-09-21] MEDS: FAMOTIDINE 20 MG TAB PO SCH ×2 (08:16→19:53)
[2021-09-21] MEDS: MAGNESIUM OXIDE 400 MG TAB PO SCH ×2 (08:16→19:52)
[2021-09-21] MEDS: ATORVASTATIN 80 MG TAB PO SCH (19:53)
[2021-09-21] MEDS: MELATONIN 3 MG TABLET PO PRN (19:53)
[2021-09-22] MEDS: TRAMADOL HCL 50 MG TAB PO PRN ×3 (04:23→19:35)
[2021-09-22] MEDS: ENOXAPARIN 40 MG/0.4 ML SQ SCH (07:00)
[2021-09-22] MEDS: ASPIRIN 81 MG CHEWABLE TABLET PO SCH (07:13)
[2021-09-22] MEDS: lisinopriL 5 MG TAB PO SCH ×2 (07:14→19:34)
[2021-09-22] MEDS: FAMOTIDINE 20 MG TAB PO SCH ×2 (07:14→19:33)
[2021-09-22] MEDS: THIAMINE HCL 100 MG TABLET PO SCH (07:14)
[2021-09-22] MEDS: CRANBERRY FRUIT EXTRACT 400 MG CAP PO SCH ×2 (07:14→19:35)
[2021-09-22] MEDS: CLOPIDOGREL 75 MG TABLET PO SCH (07:14)
[2021-09-22] MEDS: MAGNESIUM OXIDE 400 MG TAB PO SCH ×2 (07:14→19:34)
--- NOTE | 2021-09-22 17:15 | R.HP ---
HISTORY AND PHYSICAL FACILITY: [facility] ENCOUNTER DATE AND TIME: 09/19/2021 17:08 (MA[address]IG[address]) MR#: [id number] NAME MICHEAL LIN ADDRESS: [address] [place] [address] CITY: [facility] [place]IP [address] PHONE: DATE OF : 1955 AGE: 66 SSN# [id number] GENDER: Male MARITAL STATUS Single (Never ) PRE-HOSPITAL LIVING SETTING 01 - Home (private home/apt. board/care, assisted living, skilled nursing, transitional living) PRE-HOSPITAL LIVING WITH Alone ENCOUNTER PHYSICIAN: Dr. Charli Quiroga M.D. REFERRING DOCTOR: PHILIP RETANA MD DATE OF ADMISSION: 09/18/2021 17:17 (MANA[address]) REFERRING FACILITY [facility] HOME TYPE AND DETAILS: Type of home: single family house # of steps to enter the residence: 0 # of steps within the residence: 0 # of levels in the residence: 1 ONSET DATE: 09/15/2021 PRIMARY DIAGNOSIS-RELATED SURGERIES: N/A HISTORY OF PRESENT ILLNESS (HPI): Pt. is a 66 yo Right-handed male. On 09/15/2021 Pt. presented to [facility] with sudden onset of right-side weakness. On 09/15/2021 he was admitted to [facility] with diagnosis STROKE. His impairment category is Stroke 01 - Right Body (Left Brain) (01.2). Pre-morbidly, Pt. was independent/mod-I in Locomotion, Social Cognition, Balance, Transfers Control, and Safety Awareness; and he had good Sphincter Control, Self-Care, and Communication. Currently, he has deficits of Locomotion, Safety Awareness, Social Cognition, Balance, Transfers Cont rol, Sphincter Control, Self-Care, Endurance, and Communication. Pt. is now referred to [facility] for acute in-patient rehabilitation in order to maximize patient's functional independence in activities of daily living, strength, ROM, and mobi lity. Patient has realistic goal of being discharged at assistance level 7-Ind to reside at Home with Pt s elf. MEDICATION ALLERGIES: No Known Drug Allergies (NKDA) ENVIRONMENTAL ALLERGIES: - Substance Allergies None Known - Other Allergies None Known PAST MEDICAL HISTORY: HTN DM HPLD ACTIVE SMOKING TIA SOCIAL HISTORY: - Home Living Alone REVIEW OF SYSTEMS: - Gen No Chills Fatigue No Fever - Eyes No Double Vision No itchiness - ENMT No Difficulty Swallowing - CVS No Chest Discomfort No Chest Pain Fatigue No Weight Gain - Resp No Cough No Shortness of Breath - GI Continent No Abdominal Pain No Constipation No Diarrhea - Continent No Kidney Pain No Painful Urination No Urinary Urgency - MSK Joint Pain Muscle Cramps Stiffness - Skin No Itching No Rash No Suspicious Lesions - Neuro Coordination Difficulty Difficulty with Concentration No Memory Loss No Seizures Weakness - Psych No Anxiety No Depression No HIV Exposure No Persistent Infections No Seasonal Allergies - Endo No Cold/Heat Intolerance No Excessive Hunger No Excessive Thirst No Excessive Urination PHYSICAL EXAM - Gen Alert and awake Lying in bed No apparent distress Oriented to: person, time, and place - Skin No skin breakdown. No abnormalities - Eyes No abnormalities - ENMT No abnormalities - Neck No abnormalities - CVS RRR - Chest No abnormalities - Resp Clear to auscultation - Abd Soft - GI nondistended Deferred - No abnormalities - Ext Mild right upper and lower extremity edema. - MSK 2/5 weakness in right upper and 3/5 weakness in right lower extremity. - Neuro 2/5 weakness in right upper and 3/5 weakness in right lower extremity. Decreased sensation on right v ersus left upper and lower extremity. VITAL SIGNS Temperature: 97.8 F SBP/DBP: 151/86 Pulse: 56 Resp: 16 Vital signs stable, afebrile NURSING: - Shower allowing shower - Bladder care per protocol - Skin care per protocol PRECAUTIONS: - Weight Bearing Precaution WBAT right LE ACTIVITIES OOB only with supervision QI SCORES: - Self-Care A. Eating 03-Partial/moderate assistance B. Oral hygiene 03-Partial/moderate assistance C. Toileting hygiene 03-Partial/moderate assistance E. Shower/bathe self 02-Substantial/maximal assistance F. Upper body dressing 03-Partial/moderate assistance G. Lower body dressing 02-Substantial/maximal assistance H. Putting on/taking off footwear 88-Not attempted due to medical condition or safety concerns - Mobility A. Roll left and right 03-Partial/moderate assistance B. Sit to lying 03-Partial/moderate assistance C. Lying to sitting on side of bed 03-Partial/moderate assistance D. Sit to stand 03-Partial/moderate assistance E. Chair/cbx-th-kdatd transfer 03-Partial/moderate assistance F. Toilet transfer 03-Partial/moderate assistance G. Car transfer 88-Not attempted due to medical condition or safety concerns I. Walk 10 feet 03-Partial/moderate assistance J. Walk 50 feet with two turns 88-Not attempted due to medical condition or safety concerns K. Walk 150 feet 88-Not attempted due to medical condition or safety concerns L. Walking 10 feet on uneven surfaces 88-Not attempted due to medical condition or safety concerns M. 1 step (curb) 88-Not attempted due to medical condition or safety concerns N. 4 steps 88-Not attempted due to medical condition or safety concerns O. 12 steps 88-Not attempted due to medical condition or safety concerns P. Picking up object 88-Not attempted due to medical condition or safety concerns R. Wheel 50 feet with two turns 88-Not attempted due to medical condition or safety concerns S. Wheel 150 feet 88-Not attempted due to medical condition or safety concerns - Bladder and Bowel Bladder continence Bowel continence - Endurance Fair - Balance Fair - Safety Awareness Fair CURRENT FUNC. DEFICITS: Self-Care, Mobility, Endurance, Balance, and Safety Awareness MEDICATIONS: - Other See attached MAR (Medication Administration Record) ASSESSMENT: Pt. is a 66 yo Right-handed male.On 09/15/2021 Pt. presented to [facility] with sudden onset of r ight-side weakness.On 09/15/2021 he was admitted to [facility] with diagnosis STROKE.His impairme nt category is Stroke 01 - Right Body (Left Brain) (01.2).Pre-morbidly, Pt. was independent/mod-I in Locomotion, Social Cognition, Balance, Transfers Control, and Safety Awareness; and he had good Sphi ncter Control, Self-Care, and Communication.Currently, he has deficits of Locomotion, Safety Awarenes s, Social Cognition, Balance, Transfers Control, Sphincter Control, Self-Care, Endurance, and Communi cation.Pt. is now referred to [facility] for acute in-patient rehabilitation i n order to maximize patient's functional independence in activities of daily living, strength, ROM, a nd mobility.- Rehab Goal Patient has realistic goal of being discharged at assistance level 7-Ind to reside at Home with Pt s elf. for Dementia, TBI, Stroke, or others - Physical Therapy Gait dysfunction - to improve, our physical therapists will perform initial evaluation of pt's status upon admission and devise an individualized program for Gait Training, and Wheel Chair mobility Inability to transfer - to improve, our physical therapists will perform initial evaluation of pt's s tatus upon admission and devise an individualized program for Bed mobility Need for home safety evaluation - to improve, our physical therapists will perform initial evaluation of pt's status upon admission and devise an individualized program for Home Evaluation Need in caregiver upon discharge - to improve, our physical therapists will perform initial evaluatio n of pt's status upon admission and devise an individualized program for Caregiver Training New precaution - to improve, our physical therapists will perform initial evaluation of pt's status u ramy admission and devise an individualized program for Patient precaution education Edema - to improve, our physical therapists will perform initial evaluation of pt's status upon admi ssion and devise an individualized program for Elevation Training, and Lymphedema Therapy Poor balance - to improve, our physical therapists will perform initial evaluation of pt's status upo n admission and devise an individualized program for Balance Training Poor endurance - to improve, our physical therapists will perform initial evaluation of pt's status u ramy admission and devise an individualized program for Endurance Training Weakness - to improve, our physical therapists will perform initial evaluation of pt's status upon ad mission and devise an individualized program for Aquatic Therapy, Neuromuscular Reeducation, and Stre ngthening Achieving independence - to improve, our physical therapists will perform initial evaluation of pt's status upon admission and devise an individualized program for Community Reintegration Activities - Occupational Therapy ADL deficits - to improve, our occupation therapists will perform initial evaluation of pt's status u ramy admission and devise an individualized program for Bathing, Bed mobility, Community Reintegration , Cooking, Dressing, Eating, Fine Motor Skills, Grooming, Homemaking, Kitchen Mobility, Laundry, Phyllis ent Education, Safety Awareness, Splinting - Positioning, Transfers(Toilet, Tub, Shower), and Wheel C hair Management Cognitive deficits - to improve, our occupation therapists will perform initial evaluation of pt's st atus upon admission and devise an individualized program for Cognition - orientation Need for acute care occupational therapist - to improve, our occupation therapists will perform initial evaluation of pt's s tatus upon admission and devise an individualized program for Caregiver Training Weakness - to improve, our occupation therapists will perform initial evaluation of pt's status upon admission and devise an individualized program for Aquatic Therapy, Balance, Endurance, UE ROM, and U E strengthening MEDICAL PLAN: - Diet Type Start Regular - Diet - Liquid Texture Start Regular - Tube Feed Start N/A - Bladder care per protocol - Weight Bearing Precaution WBAT right LE - Skin care per protocol - Other See attached MAR (Medication Administration Record) - Diet - Solid Texture Regular - Shower shower DISCHARGE PLAN: - Estimated Length of Stay (days) 17. - Consensus on plan Discharge plan has been discussed with primary caregiver. Patient/Family is in agreement with the mikel n. Primary caregiver is in agreement with the plan. - Patient/Family Goals Return home independently. - Planned Living Setting Upon Discharge Home, to live alone. Transitional Living. Primary caregiver: Pt self. SIGNATURE PANEL: (MANAGER HIGHWAY)
--- NOTE | 2021-09-22 17:16 | PAPE ---
POST ADMISSION PHYSICIAN EVALUATION PATIENT: [facility] MR# [id number] REFERRING DOCTOR PHILIP RETANA MD EVALUATION DATE AND TIME 09/19/2021 17:14 (MARKET PRESIDENT) NAME MICHEAL LIN DATE OF 1955 AGE 66 PHONE SSN# [id number] GENDER male EVALUATING PHYSICIAN Dr. Charli Quiroga M.D. ADMISSION DIAGNOSIS: STROKE ONSET DATE 09/15/2021 POST-ADMISSION FUNCTIONAL/MEDICAL STATUS: - Bladder Same accident frequency: 7-Ind - No accidents in the past 7 days - Bowel Same accident frequency: 7-Ind - No accidents in the past 7 days - Walking Same score based on distance walked: 0(N/A) Same score based on distance walked: 1(<=50ft) - Wheelchair Same score based on distance traveled: 0(N/A) STATUS CHANGE EVALUATION: No change in Functional or Medical Status is identified compared with Pre-Admission screening. PATIENT NEEDS CLOSE MEDICAL SUPERVISION BY A REHABILITATION PHYSICIAN FOR: Coordination of Treatment Team PATIENT REQUIRES 24X7 REHAB NURSING FOR MEDICAL AND FUNCTIONAL MGT. OF THE FOLLOWING DEFICITS: Disease Management Medication Management Patient/Family Education Providing Safe Environment PATIENT REQUIRES INTENSIVE, COORDINATED INTERDISCIPLINARY APPROACH TO REHAB: Arranging Home Equipment/Services Discharge Planning Family Intervention/Training Screen Print Operator/Case Management LIST OF IDENTIFIED AND POTENTIAL PROBLEMS: Alteration in leisure activities Bladder, Incontinence Bowel, Incontinence Infection, Actual or Potential Mobility Impaired Pain, Alteration in Comfort Self Care Deficit Skin Integrity, Actual or Potential Urinary Tract Infection (UTI), Actual or Potential RISK FOR COMPLICATIONS - N/A HTN. DM. HPLD. ACTIVE SMOKING. PATIENT COULD BE AT RISK FOR COMPLICATIONS FROM ADVERSE MEDICAL CONDITIONS DUE TO HIS/HER COMORBIDITI ES AND THE RIGORS OF THE INTENSIVE REHABILLITATION PROGRAM. METHODS OR INTERVENTIONS TO AVOID COMPLIC ATIONS INCLUDE: - Bleeding Stroke patients assessed for lethargy or change in status. - Infection Clinical staff to assess and manage the signs and symptoms of infection including fever, redness, war mth, etc. - Urinary Tract Infection - Aspiration Clinical staff will assess and manage coughing, drooling, congestion. - Falls Patient will be evaluated for Fall Precautions and will be placed on Fall Precautions as indicated pe r protocol. - Skin Breakdown Nursing will assess skin daily using assessment tool and will place on Skin Breakdown Precautions as indicated per protocol. - Pain Clinical staff may employ non-medication methods such as massage, distraction, decrease stimulus, etc . as needed. Clinical staff will assess patient's pain level every shift per protocol to assess and e nsure pain management effectiveness. Medications will be given and the pain level re-assessed. PRELIMINARY PLAN OF CARE: - Physical Therapy Patient needs Physical Therapy for a daily minimum of 1.5 hours at least 5 out of 7 days, to improve: Mobility, Strengthening, Transfers, Stretching, ROM, Endurance, Ability to manage stairs, Gait, and Balance. - Speech Therapy Patient needs Speech Therapy for a daily minimum of 0.5 hours at least 5 out of 7 days, to improve: S wallowing, Cognition, Language Skills, and Compensatory Strategies. - Rehabilitation Nursing Patient requires 24x7 Rehabilitation Nursing for: Pain Issues, Identifying and preventing risk factor s, Monitoring and reporting current medical conditions, Assisting with ambulation and transfer, Aries ting with all ADL-s, Teaching patients about disease process and medications, Family teaching, Provid ing safe environment, Bowel and Bladder Issues, Skin Integrity, and Medication Management. Patient needs Screen Print Operator and/or Case Management for: Discharge Planning, Arranging Home Equipmen t or Services, and Family Interventions. - Dietary and Nutrition Services Patient needs Dietary and Nutrition Services for: Adequate Nutrition, Nutritional Supplements, and Nu tritional Education. - Occupational Therapy Patient needs Occupational Therapy for a daily minimum of 1.5 hours at least 5 out of 7 days, to impr ove Activities of Daily Living, including: Eating, Grooming, Bathing, Dressing, Toileting, Toilet Tra nsfers, Community Reintegration, Higher functional activities, Adaptive Equipment, Splinting, Househo ld Tasks, and Other activities as determined. QI SCORES: - Self-Care A. Eating 03-Partial/moderate assistance B. Oral hygiene 03-Partial/moderate assistance C. Toileting hygiene 03-Partial/moderate assistance E. Shower/bathe self 02-Substantial/maximal assistance F. Upper body dressing 03-Partial/moderate assistance G. Lower body dressing 02-Substantial/maximal assistance H. Putting on/taking off footwear 88-Not attempted due to medical condition or safety concerns - Mobility A. Roll left and right 03-Partial/moderate assistance B. Sit to lying 03-Partial/moderate assistance C. Lying to sitting on side of bed 03-Partial/moderate assistance D. Sit to stand 03-Partial/moderate assistance E. Chair/utp-qv-xoyts transfer 03-Partial/moderate assistance F. Toilet transfer 03-Partial/moderate assistance G. Car transfer 88-Not attempted due to medical condition or safety concerns I. Walk 10 feet 03-Partial/moderate assistance J. Walk 50 feet with two turns 88-Not attempted due to medical condition or safety concerns K. Walk 150 feet 88-Not attempted due to medical condition or safety concerns L. Walking 10 feet on uneven surfaces 88-Not attempted due to medical condition or safety concerns M. 1 step (curb) 88-Not attempted due to medical condition or safety concerns N. 4 steps 88-Not attempted due to medical condition or safety concerns O. 12 steps 88-Not attempted due to medical condition or safety concerns P. Picking up object 88-Not attempted due to medical condition or safety concerns R. Wheel 50 feet with two turns 88-Not attempted due to medical condition or safety concerns S. Wheel 150 feet 88-Not attempted due to medical condition or safety concerns - Bladder and Bowel Bladder continence Bowel continence - Endurance Fair - Balance Fair - Safety Awareness Fair POTENTIAL FUNCTIONAL GOALS FOR PATIENT TO ACHIEVE BY DISCHARGE: - Safety Precaution Patient will remain free from falls or injury at time of discharge. - Bed Mobility Patient will perform bed mobility at 4-Tylor level of assistance. - Transfers Patient will complete transfers from bed to chair at 4-Tylor level of assistance. - Mobility Patient will ambulate 150 ft with 4-Tylor level of assistance with RW. PATIENT REHAB POTENTIAL Fernanda LIN is able and expected to receive 3 hours of individualized therapy daily on at least 5 of ev thomas 7 days Fernanda LIN's prognosis for significant practical improvement within a reasonable period of time appear s Good Expected level of measurable improvement will be of a practical value to Fernanda LIN's functional capac ity or adaptations to impairments Has a viable Discharge Plan Medically appropriate; condition is sufficiently stable to participate in intensive rehab program DISCHARGE PLAN: - Estimated Length of Stay (days) 17. - Consensus on plan Discharge plan has been discussed with primary caregiver. Patient/Family is in agreement with the mikel n. Primary caregiver is in agreement with the plan. - Patient/Family Goals Return home independently. - Planned Living Setting Upon Discharge Home, to live alone. Transitional Living. Primary caregiver: Pt self. CONCLUSION ON REHABILITATION NECESSITY: I have evaluated patient's pre-admission functional status and, comparing it to the patient's post-ad mission functional status now, I conclude that the pre-admission assessment was accurate. Patient's c ondition on admission supports the medical necessity of admission to IR[facility]. It is safe to proceed with patient's therapy program. SIGNATURE PANEL: (MARKET PRESIDENT)
--- NOTE | 2021-09-22 17:31 | R.PN ---
PROGRESS NOTES ENCOUNTER DATE AND TIME: 09/22/2021 17:15 (PRINCIPAL ACCOUNTS CLERK) NAME MICHEAL LIN DATE OF : 1955 DATE OF ADMISSION: 09/18/2021 17:17 (PRINCIPAL ACCOUNTS CLERK) STROKECHIEF COMPLAINT: Left hemispheric stroke with right sided arm and leg weakness and numbness. Left brain affected right body, speech and swallowing SUBJECTIVE: Pt denied any depression. Pt denied any Shortness of Breath. He has mild pain, stiffness and tenderness in the left and right lower extremities. He has no other c omplaints. He is doing fairly well with all therapy. Bed mobility and sit to stand done with standby to max assistance. VITAL SIGNS Temperature: 98.2 F SBP/DBP:145/87 Pulse: 67 Resp: 16 MEDICATION ALLERGIES: No Known Drug Allergies (NKDA) ENVIRONMENTAL ALLERGIES: - Substance Allergies None Known - Other Allergies None Known NURSING: - Shower allowing shower - Bladder care per protocol - Skin care per protocol PRECAUTIONS: - Weight Bearing Precaution WBAT right LE ACTIVITIES OOB only with supervision THERAPIES: - Dietary and Nutrition Adequate Nutrition. Nutritional Education. Nutritional Supplements. - Occupational Therapy Cognitive Retraining. Evaluate and Treat. ADL Training. Transfer Training. Adaptive Equipment. UE Str engthening. - Speech Therapy Cognitive Training. Expressive Language Skills. Memory Strategies. Receptive Language Skills. Speech Intelligibility Training. - Physical Therapy Gait Training. Balance Training. Evaluate and Treat. Transfer Training. Mobility Training. Safety Jaky reness. LE Strengthening. PHYSICAL EXAM - Gen Alert and awake Lying in bed No apparent distress Oriented to: person, time, and place - Skin No skin breakdown. No abnormalities - Eyes No abnormalities - ENMT No abnormalities - Neck No abnormalities - CVS RRR - Chest No abnormalities - Resp Clear to auscultation - Abd Soft - GI nondistended Deferred - No abnormalities - Ext Mild right upper and lower extremity edema. - MSK 2/5 weakness in right upper and 3/5 weakness in right lower extremity. - Neuro 2/5 weakness in right upper and 3/5 weakness in right lower extremity. Decreased sensation on right v ersus left upper and lower extremity. ASSESSMENT: Pt. is a 66 yo Right-handed male.On 09/15/2021 Pt. presented to [facility] with sudden onset of r ight-side weakness.On 09/15/2021 he was admitted to [facility] with diagnosis STROKE.His impairme nt category is Stroke 01 - Right Body (Left Brain) (01.2).Pre-morbidly, Pt. was independent/mod-I in Locomotion, Social Cognition, Balance, Transfers Control, and Safety Awareness; and he had good Sphi ncter Control, Self-Care, and Communication.Currently, he has deficits of Locomotion, Safety Awarenes s, Social Cognition, Balance, Transfers Control, Sphincter Control, Self-Care, Endurance, and Communi cation.Pt. is now referred to [facility] for acute in-patient rehabilitation i n order to maximize patient's functional independence in activities of daily living, strength, ROM, a nd mobility.- Rehab Goal Patient has realistic goal of being discharged at assistance level 7-Ind to reside at Home with Pt s elf. MDM/PLAN: - Physical Therapy Gait dysfunction - to improve, our physical therapists will perform initial evaluation of pt's statu s upon admission and devise an individualized program for Gait Training, and Wheel Chair mobility Inability to transfer - to improve, our physical therapists will perform initial evaluation of pt's status upon admission and devise an individualized program for Bed mobility Need for home safety evaluation - to improve, our physical therapists will perform initial evaluatio n of pt's status upon admission and devise an individualized program for Home Evaluation Need in caregiver upon discharge - to improve, our physical therapists will perform initial evaluati on of pt's status upon admission and devise an individualized program for Caregiver Training New precaution - to improve, our physical therapists will perform initial evaluation of pt's status upon admission and devise an individualized program for Patient precaution education Edema - to improve, our physical therapists will perform initial evaluation of pt's status upon admis jeanne and devise an individualized program for Elevation Training, and Lymphedema Therapy Poor balance - to improve, our physical therapists will perform initial evaluation of pt's status up on admission and devise an individualized program for Balance Training Poor endurance - to improve, our physical therapists will perform initial evaluation of pt's status upon admission and devise an individualized program for Endurance Training Weakness - to improve, our physical therapists will perform initial evaluation of pt's status upon a dmission and devise an individualized program for Aquatic Therapy, Neuromuscular Reeducation, and Str engthening Achieving independence - to improve, our physical therapists will perform initial evaluation of pt's status upon admission and devise an individualized program for Community Reintegration Activities - Occupational Therapy ADL deficits - to improve, our occupation therapists will perform initial evaluation of pt's status upon admission and devise an individualized program for Bathing, Bed mobility, Community Reintegratio n, Cooking, Dressing, Eating, Fine Motor Skills, Grooming, Homemaking, Kitchen Mobility, Laundry, Pat ient Education, Safety Awareness, Splinting - Positioning, Transfers(Toilet, Tub, Shower), and Wheel Chair Management Cognitive deficits - to improve, our occupation therapists will perform initial evaluation of pt's s tatus upon admission and devise an individualized program for Cognition - orientation Need for pet caregiver - to improve, our occupation therapists will perform initial evaluation of pt's status upon admission and devise an individualized program for Caregiver Training Weakness - to improve, our occupation therapists will perform initial evaluation of pt's status upon admission and devise an individualized program for Aquatic Therapy, Balance, Endurance, UE ROM, and UE strengthening - Other See attached MAR (Medication Administration Record) - Diet Type Continue Regular - Diet - Liquid Texture Continue Regular - Tube Feed Continue N/A - Bladder care per protocol - Weight Bearing Precaution WBAT right LE - Skin care per protocol - Diet - Solid Texture Continue Regular - Shower allowing shower for Dementia, TBI, Stroke, or others FUNCTIONAL STATUS: UPDATED AT WEEKLY TEAM CONFERENCE - Bladder Same accident frequency: 7-Ind - No accidents in the past 7 days - Bowel Same accident frequency: 7-Ind - No accidents in the past 7 days - Walking Same score based on distance walked: 0(N/A) Same score based on distance walked: 1(<=50ft) - Wheelchair Same score based on distance traveled: 0(N/A) FUNCTIONAL STATUS: - Self-Care A. Eating sup B. Grooming Ind C. Bathing maxA D. Dressing - Upper Tylor E. Dressing - Lower modA F. Toileting modA - Sphincter Control G. Bladder control En H. Bowel control En - Transfers Control I. Bed/Chair/Wheelchair modA J. Toilet Tylor K. Tub/Shower maxA - Locomotion L. Walk/Wheelchair (B) modA M. Stairs Dep - Communication N. Comprehension (B) En O. Expression (B) Tylor - Social Cognition P. Social Interaction Ind Q. Problem Solving sup R. Memory Tlyor - Endurance Fair - Balance Poor - Safety Awareness Fair QI SCORES: - Self-Care A. Eating 03-Partial/moderate assistance B. Oral hygiene 03-Partial/moderate assistance C. Toileting hygiene 03-Partial/moderate assistance E. Shower/bathe self 02-Substantial/maximal assistance F. Upper body dressing 03-Partial/moderate assistance G. Lower body dressing 02-Substantial/maximal assistance H. Putting on/taking off footwear 88-Not attempted due to medical condition or safety concerns - Mobility A. Roll left and right 03-Partial/moderate assistance B. Sit to lying 03-Partial/moderate assistance C. Lying to sitting on side of bed 03-Partial/moderate assistance D. Sit to stand 03-Partial/moderate assistance E. Chair/axq-[id number]-[id number] transfer 03-Partial/moderate assistance F. Toilet transfer 03-Partial/moderate assistance G. Car transfer 88-Not attempted due to medical condition or safety concerns I. Walk 10 feet 03-Partial/moderate assistance J. Walk 50 feet with two turns 88-Not attempted due to medical condition or safety concerns K. Walk 150 feet 88-Not attempted due to medical condition or safety concerns L. Walking 10 feet on uneven surfaces 88-Not attempted due to medical condition or safety concerns M. 1 step (curb) 88-Not attempted due to medical condition or safety concerns N. 4 steps 88-Not attempted due to medical condition or safety concerns O. 12 steps 88-Not attempted due to medical condition or safety concerns P. Picking up object 88-Not attempted due to medical condition or safety concerns R. Wheel 50 feet with two turns 88-Not attempted due to medical condition or safety concerns S. Wheel 150 feet 88-Not attempted due to medical condition or safety concerns - Bladder and Bowel Bladder continence Bowel continence - Endurance Fair - Balance Fair - Safety Awareness Fair CURRENT FUNC. DEFICITS: Self-Care, Mobility, Endurance, Balance, and Safety Awareness SIGNATURE PANEL: (PRINCIPAL ACCOUNTS CLERK)
[2021-09-22] MEDS: ATORVASTATIN 80 MG TAB PO SCH (19:34)
[2021-09-22] MEDS: MELATONIN 3 MG TABLET PO PRN (19:36)
[2021-09-23] MEDS: ENOXAPARIN 40 MG/0.4 ML SQ SCH (07:18)
[2021-09-23] MEDS: CRANBERRY FRUIT EXTRACT 400 MG CAP PO SCH ×2 (08:45→19:35)
[2021-09-23] MEDS: FAMOTIDINE 20 MG TAB PO SCH ×2 (08:46→19:41)
[2021-09-23] MEDS: ASPIRIN 81 MG CHEWABLE TABLET PO SCH (08:46)
[2021-09-23] MEDS: CLOPIDOGREL 75 MG TABLET PO SCH (08:47)
[2021-09-23] MEDS: THIAMINE HCL 100 MG TABLET PO SCH (08:47)
[2021-09-23] MEDS: TRAMADOL HCL 50 MG TAB PO PRN ×3 (08:48→22:48)
[2021-09-23] MEDS: lisinopriL 5 MG TAB PO SCH ×3 (08:51→19:42)
[2021-09-23] MEDS: MAGNESIUM OXIDE 400 MG TAB PO SCH ×2 (08:53→19:41)
--- NOTE | 2021-09-23 17:41 | R.PN ---
PROGRESS NOTES ENCOUNTER DATE AND TIME: 09/23/2021 17:37 (POWER GENERATION EQUIPMENT REPAIRER) NAME MICHEAL LIN DATE OF : 1955 DATE OF ADMISSION: 09/18/2021 17:17 (POWER GENERATION EQUIPMENT REPAIRER) STROKECHIEF COMPLAINT: Left hemispheric stroke with right sided arm and leg weakness and numbness. Left brain affected right body, speech and swallowing SUBJECTIVE: Pt denied any depression. Pt denied any Shortness of Breath. He has mild pain with less stiffness and tenderness in the left and right lower extremities. He is d oing fairly well with all therapy. Bed mobility and sit to stand done with standby to moderate assist ance. Ambulated 62' with minimum assistance using a rolling walker. VITAL SIGNS Temperature: 97.9 F SBP/DBP: 134/64 Pulse: 66 Resp: 16 MEDICATION ALLERGIES: No Known Drug Allergies (NKDA) ENVIRONMENTAL ALLERGIES: - Substance Allergies None Known - Other Allergies None Known NURSING: - Shower allowing shower - Bladder care per protocol - Skin care per protocol PRECAUTIONS: - Weight Bearing Precaution WBAT right LE ACTIVITIES OOB only with supervision THERAPIES: - Dietary and Nutrition Adequate Nutrition. Nutritional Education. Nutritional Supplements. - Occupational Therapy Cognitive Retraining. Evaluate and Treat. ADL Training. Transfer Training. Adaptive Equipment. UE Str engthening. - Speech Therapy Cognitive Training. Expressive Language Skills. Memory Strategies. Receptive Language Skills. Speech Intelligibility Training. - Physical Therapy Gait Training. Balance Training. Evaluate and Treat. Transfer Training. Mobility Training. Safety Jaky reness. LE Strengthening. PHYSICAL EXAM - Gen Alert and awake Lying in bed No apparent distress Oriented to: person, time, and place - Skin No skin breakdown. No abnormalities - Eyes No abnormalities - ENMT No abnormalities - Neck No abnormalities - CVS RRR - Chest No abnormalities - Resp Clear to auscultation - Abd Soft - GI nondistended Deferred - No abnormalities - Ext Mild right upper and lower extremity edema. - MSK 2/5 weakness in right upper and 3/5 weakness in right lower extremity. - Neuro 2/5 weakness in right upper and 3/5 weakness in right lower extremity. Decreased sensation on right v ersus left upper and lower extremity. ASSESSMENT: Pt. is a 66 yo Right-handed male.On 09/15/2021 Pt. presented to [facility] with sudden onset of r ight-side weakness.On 09/15/2021 he was admitted to [facility] with diagnosis STROKE.His impairme nt category is Stroke 01 - Right Body (Left Brain) (01.2).Pre-morbidly, Pt. was independent/mod-I in Locomotion, Social Cognition, Balance, Transfers Control, and Safety Awareness; and he had good Sphi ncter Control, Self-Care, and Communication.Currently, he has deficits of Locomotion, Safety Awarenes s, Social Cognition, Balance, Transfers Control, Sphincter Control, Self-Care, Endurance, and Communi cation.Pt. is now referred to [facility] for acute in-patient rehabilitation i n order to maximize patient's functional independence in activities of daily living, strength, ROM, a nd mobility.- Rehab Goal Patient has realistic goal of being discharged at assistance level 7-Ind to reside at Home with Pt s elf. MDM/PLAN: - Physical Therapy Gait dysfunction - to improve, our physical therapists will perform initial evaluation of pt's statu s upon admission and devise an individualized program for Gait Training, and Wheel Chair mobility Inability to transfer - to improve, our physical therapists will perform initial evaluation of pt's status upon admission and devise an individualized program for Bed mobility Need for home safety evaluation - to improve, our physical therapists will perform initial evaluatio n of pt's status upon admission and devise an individualized program for Home Evaluation Need in caregiver upon discharge - to improve, our physical therapists will perform initial evaluati on of pt's status upon admission and devise an individualized program for Caregiver Training New precaution - to improve, our physical therapists will perform initial evaluation of pt's status upon admission and devise an individualized program for Patient precaution education Edema - to improve, our physical therapists will perform initial evaluation of pt's status upon admi ssion and devise an individualized program for Elevation Training, and Lymphedema Therapy Poor balance - to improve, our physical therapists will perform initial evaluation of pt's status up on admission and devise an individualized program for Balance Training Poor endurance - to improve, our physical therapists will perform initial evaluation of pt's status upon admission and devise an individualized program for Endurance Training Weakness - to improve, our physical therapists will perform initial evaluation of pt's status upon a dmission and devise an individualized program for Aquatic Therapy, Neuromuscular Reeducation, and Str engthening Achieving independence - to improve, our physical therapists will perform initial evaluation of pt's status upon admission and devise an individualized program for Community Reintegration Activities - Occupational Therapy ADL deficits - to improve, our occupation therapists will perform initial evaluation of pt's status upon admission and devise an individualized program for Bathing, Bed mobility, Community Reintegratio n, Cooking, Dressing, Eating, Fine Motor Skills, Grooming, Homemaking, Kitchen Mobility, Laundry, Pat ient Education, Safety Awareness, Splinting - Positioning, Transfers(Toilet, Tub, Shower), and Wheel Chair Management Cognitive deficits - to improve, our occupation therapists will perform initial evaluation of pt's s tatus upon admission and devise an individualized program for Cognition - orientation Need for career and guidance counselor - to improve, our occupation therapists will perform initial evaluation of pt's status upon admission and devise an individualized program for Caregiver Training Weakness - to improve, our occupation therapists will perform initial evaluation of pt's status upon admission and devise an individualized program for Aquatic Therapy, Balance, Endurance, UE ROM, and UE strengthening - Other See attached MAR (Medication Administration Record) - Diet Type Continue Regular - Diet - Liquid Texture Continue Regular - Tube Feed Continue N/A - Bladder care per protocol - Weight Bearing Precaution WBAT right LE - Skin care per protocol - Diet - Solid Texture Continue Regular - Shower allowing shower for Dementia, TBI, Stroke, or others FUNCTIONAL STATUS: UPDATED AT WEEKLY TEAM CONFERENCE - Bladder Same accident frequency: 7-Ind - No accidents in the past 7 days - Bowel Same accident frequency: 7-Ind - No accidents in the past 7 days - Walking Same score based on distance walked: 0(N/A) Same score based on distance walked: 1(<=50ft) - Wheelchair Same score based on distance traveled: 0(N/A) FUNCTIONAL STATUS: - Self-Care A. Eating sup B. Grooming Ind C. Bathing maxA D. Dressing - Upper Tylor E. Dressing - Lower modA F. Toileting modA - Sphincter Control G. Bladder control En H. Bowel control En - Transfers Control I. Bed/Chair/Wheelchair modA J. Toilet Tylor K. Tub/Shower maxA - Locomotion L. Walk/Wheelchair (B) modA M. Stairs Dep - Communication N. Comprehension (B) En O. Expression (B) Tylor - Social Cognition P. Social Interaction Ind Q. Problem Solving sup R. Memory Tylor - Endurance Fair - Balance Poor - Safety Awareness Fair QI SCORES: - Self-Care A. Eating 03-Partial/moderate assistance B. Oral hygiene 03-Partial/moderate assistance C. Toileting hygiene 03-Partial/moderate assistance E. Shower/bathe self 02-Substantial/maximal assistance F. Upper body dressing 03-Partial/moderate assistance G. Lower body dressing 02-Substantial/maximal assistance H. Putting on/taking off footwear 88-Not attempted due to medical condition or safety concerns - Mobility A. Roll left and right 03-Partial/moderate assistance B. Sit to lying 03-Partial/moderate assistance C. Lying to sitting on side of bed 03-Partial/moderate assistance D. Sit to stand 03-Partial/moderate assistance E. Chair/kqo-[id number] transfer 03-Partial/moderate assistance F. Toilet transfer 03-Partial/moderate assistance G. Car transfer 88-Not attempted due to medical condition or safety concerns I. Walk 10 feet 03-Partial/moderate assistance J. Walk 50 feet with two turns 88-Not attempted due to medical condition or safety concerns K. Walk 150 feet 88-Not attempted due to medical condition or safety concerns L. Walking 10 feet on uneven surfaces 88-Not attempted due to medical condition or safety concerns M. 1 step (curb) 88-Not attempted due to medical condition or safety concerns N. 4 steps 88-Not attempted due to medical condition or safety concerns O. 12 steps 88-Not attempted due to medical condition or safety concerns P. Picking up object 88-Not attempted due to medical condition or safety concerns R. Wheel 50 feet with two turns 88-Not attempted due to medical condition or safety concerns S. Wheel 150 feet 88-Not attempted due to medical condition or safety concerns - Bladder and Bowel Bladder continence Bowel continence - Endurance Fair - Balance Fair - Safety Awareness Fair CURRENT FUNC. DEFICITS: Self-Care, Mobility, Endurance, Balance, and Safety Awareness SIGNATURE PANEL: (POWER GENERATION EQUIPMENT REPAIRER)
[2021-09-23] MEDS: ATORVASTATIN 80 MG TAB PO SCH (19:35)
[2021-09-23] MEDS: DOCUSATE NA/SENNA CONC 1 TAB PO PRN (19:39)
[2021-09-23] MEDS: MELATONIN 3 MG TABLET PO PRN (19:41)
[2021-09-23] MEDS ORDERED: GABAPENTIN 100 MG CAP PO SCH (20:00)
[2021-09-23] MEDS ORDERED: ACETAMINOPHEN 500 MG TAB PO PRN (21:41)
[2021-09-23] MEDS: GABAPENTIN 300 MG CAP PO SCH (21:48)
[2021-09-24] MEDS: ENOXAPARIN 40 MG/0.4 ML SQ SCH (06:42)
[2021-09-24] MEDS: TRAMADOL HCL 50 MG TAB PO PRN ×4 (08:19→19:54)
[2021-09-24] MEDS: lisinopriL 5 MG TAB PO SCH ×2 (08:20→19:55)
[2021-09-24] MEDS: CRANBERRY FRUIT EXTRACT 400 MG CAP PO SCH ×2 (08:20→19:55)
[2021-09-24] MEDS: MAGNESIUM OXIDE 400 MG TAB PO SCH ×2 (08:20→19:56)
[2021-09-24] MEDS: ASPIRIN 81 MG CHEWABLE TABLET PO SCH (08:20)
[2021-09-24] MEDS: THIAMINE HCL 100 MG TABLET PO SCH (08:21)
[2021-09-24] MEDS: CLOPIDOGREL 75 MG TABLET PO SCH (08:21)
[2021-09-24] MEDS: FAMOTIDINE 20 MG TAB PO SCH ×2 (08:21→19:56)
[2021-09-24] MEDS: GABAPENTIN 300 MG CAP PO SCH ×2 (08:21→19:56)
--- NOTE | 2021-09-24 17:48 | R.PN ---
PROGRESS NOTES ENCOUNTER DATE AND TIME: 09/24/2021 17:44 (CLERICAL METHODS ANALYST) NAME MICHEAL LIN DATE OF : 1955 DATE OF ADMISSION: 09/18/2021 17:17 (CLERICAL METHODS ANALYST) STROKECHIEF COMPLAINT: Left hemispheric stroke with right sided arm and leg weakness and numbness. Left brain affected right body, speech and swallowing SUBJECTIVE: Pt denied any depression. Pt denied any Shortness of Breath. He has mild pain, stiffness and tenderness in the left and right lower extremities. He is doing bett er with all therapy. Ambulated 66' with minimum assistance using a rolling walker. VITAL SIGNS Temperature: 97.6 F SBP/DBP: 126/68 Pulse: 58 Resp: 16 MEDICATION ALLERGIES: No Known Drug Allergies (NKDA) ENVIRONMENTAL ALLERGIES: - Substance Allergies None Known - Other Allergies None Known NURSING: - Shower allowing shower - Bladder care per protocol - Skin care per protocol PRECAUTIONS: - Weight Bearing Precaution WBAT right LE ACTIVITIES OOB only with supervision THERAPIES: - Dietary and Nutrition Adequate Nutrition. Nutritional Education. Nutritional Supplements. - Occupational Therapy Cognitive Retraining. Evaluate and Treat. ADL Training. Transfer Training. Adaptive Equipment. UE Str engthening. - Speech Therapy Cognitive Training. Expressive Language Skills. Memory Strategies. Receptive Language Skills. Speech Intelligibility Training. - Physical Therapy Gait Training. Balance Training. Evaluate and Treat. Transfer Training. Mobility Training. Safety Jaky reness. LE Strengthening. PHYSICAL EXAM - Gen Alert and awake Lying in bed No apparent distress Oriented to: person, time, and place - Skin No skin breakdown. No abnormalities - Eyes No abnormalities - ENMT No abnormalities - Neck No abnormalities - CVS RRR - Chest No abnormalities - Resp Clear to auscultation - Abd Soft - GI nondistended Deferred - No abnormalities - Ext Mild right upper and lower extremity edema. - MSK 2/5 weakness in right upper and 3/5 weakness in right lower extremity. - Neuro 2/5 weakness in right upper and 3/5 weakness in right lower extremity. Decreased sensation on right v ersus left upper and lower extremity. ASSESSMENT: Pt. is a 66 yo Right-handed male.On 09/15/2021 Pt. presented to [facility] with sudden onset of r ight-side weakness.On 09/15/2021 he was admitted to [facility] with diagnosis STROKE.His impairme nt category is Stroke 01 - Right Body (Left Brain) (01.2).Pre-morbidly, Pt. was independent/mod-I in Locomotion, Social Cognition, Balance, Transfers Control, and Safety Awareness; and he had good Sphi ncter Control, Self-Care, and Communication.Currently, he has deficits of Locomotion, Safety Awarenes s, Social Cognition, Balance, Transfers Control, Sphincter Control, Self-Care, Endurance, and Communi cation.Pt. is now referred to [facility] for acute in-patient rehabilitation i n order to maximize patient's functional independence in activities of daily living, strength, ROM, a nd mobility.- Rehab Goal Patient has realistic goal of being discharged at assistance level 7-Ind to reside at Home with Pt s elf. MDM/PLAN: - Physical Therapy Gait dysfunction - to improve, our physical therapists will perform initial evaluation of pt's statu s upon admission and devise an individualized program for Gait Training, and Wheel Chair mobility Inability to transfer - to improve, our physical therapists will perform initial evaluation of pt's status upon admission and devise an individualized program for Bed mobility Need for home safety evaluation - to improve, our physical therapists will perform initial evaluatio n of pt's status upon admission and devise an individualized program for Home Evaluation Need in caregiver upon discharge - to improve, our physical therapists will perform initial evaluati on of pt's status upon admission and devise an individualized program for Caregiver Training New precaution - to improve, our physical therapists will perform initial evaluation of pt's status upon admission and devise an individualized program for Patient precaution education Edema - to improve, our physical therapists will perform initial evaluation of pt's status upon admi ssion and devise an individualized program for Elevation Training, and Lymphedema Therapy Poor balance - to improve, our physical therapists will perform initial evaluation of pt's status up on admission and devise an individualized program for Balance Training Poor endurance - to improve, our physical therapists will perform initial evaluation of pt's status upon admission and devise an individualized program for Endurance Training Weakness - to improve, our physical therapists will perform initial evaluation of pt's status upon a dmission and devise an individualized program for Aquatic Therapy, Neuromuscular Reeducation, and Str engthening Achieving independence - to improve, our physical therapists will perform initial evaluation of pt's status upon admission and devise an individualized program for Community Reintegration Activities - Occupational Therapy ADL deficits - to improve, our occupation therapists will perform initial evaluation of pt's status upon admission and devise an individualized program for Bathing, Bed mobility, Community Reintegratio n, Cooking, Dressing, Eating, Fine Motor Skills, Grooming, Homemaking, Kitchen Mobility, Laundry, Pat ient Education, Safety Awareness, Splinting - Positioning, Transfers(Toilet, Tub, Shower), and Wheel Chair Management Cognitive deficits - to improve, our occupation therapists will perform initial evaluation of pt's s tatus upon admission and devise an individualized program for Cognition - orientation Need for account executive healthcare - to improve, our occupation therapists will perform initial evaluation of pt's status upon admission and devise an individualized program for Caregiver Training Weakness - to improve, our occupation therapists will perform initial evaluation of pt's status upon admission and devise an individualized program for Aquatic Therapy, Balance, Endurance, UE ROM, and UE strengthening - Other See attached MAR (Medication Administration Record) - Diet Type Continue Regular - Diet - Liquid Texture Continue Regular - Tube Feed Continue N/A - Bladder care per protocol - Weight Bearing Precaution WBAT right LE - Skin care per protocol - Diet - Solid Texture Continue Regular - Shower allowing shower for Dementia, TBI, Stroke, or others FUNCTIONAL STATUS: UPDATED AT WEEKLY TEAM CONFERENCE - Bladder Same accident frequency: 7-Ind - No accidents in the past 7 days - Bowel Same accident frequency: 7-Ind - No accidents in the past 7 days - Walking Same score based on distance walked: 0(N/A) Same score based on distance walked: 1(<=50ft) - Wheelchair Same score based on distance traveled: 0(N/A) FUNCTIONAL STATUS: - Self-Care A. Eating sup B. Grooming Ind C. Bathing maxA D. Dressing - Upper Tylor E. Dressing - Lower modA F. Toileting modA - Sphincter Control G. Bladder control En H. Bowel control En - Transfers Control I. Bed/Chair/Wheelchair modA J. Toilet Tylor K. Tub/Shower maxA - Locomotion L. Walk/Wheelchair (B) modA M. Stairs Dep - Communication N. Comprehension (B) En O. Expression (B) Tylor - Social Cognition P. Social Interaction Ind Q. Problem Solving sup R. Memory Tylor - Endurance Fair - Balance Poor - Safety Awareness Fair QI SCORES: - Self-Care A. Eating 03-Partial/moderate assistance B. Oral hygiene 03-Partial/moderate assistance C. Toileting hygiene 03-Partial/moderate assistance E. Shower/bathe self 02-Substantial/maximal assistance F. Upper body dressing 03-Partial/moderate assistance G. Lower body dressing 02-Substantial/maximal assistance H. Putting on/taking off footwear 88-Not attempted due to medical condition or safety concerns - Mobility A. Roll left and right 03-Partial/moderate assistance B. Sit to lying 03-Partial/moderate assistance C. Lying to sitting on side of bed 03-Partial/moderate assistance D. Sit to stand 03-Partial/moderate assistance E. Chair/rvu-ki-oifrx transfer 03-Partial/moderate assistance F. Toilet transfer 03-Partial/moderate assistance G. Car transfer 88-Not attempted due to medical condition or safety concerns I. Walk 10 feet 03-Partial/moderate assistance J. Walk 50 feet with two turns 88-Not attempted due to medical condition or safety concerns K. Walk 150 feet 88-Not attempted due to medical condition or safety concerns L. Walking 10 feet on uneven surfaces 88-Not attempted due to medical condition or safety concerns M. 1 step (curb) 88-Not attempted due to medical condition or safety concerns N. 4 steps 88-Not attempted due to medical condition or safety concerns O. 12 steps 88-Not attempted due to medical condition or safety concerns P. Picking up object 88-Not attempted due to medical condition or safety concerns R. Wheel 50 feet with two turns 88-Not attempted due to medical condition or safety concerns S. Wheel 150 feet 88-Not attempted due to medical condition or safety concerns - Bladder and Bowel Bladder continence Bowel continence - Endurance Fair - Balance Fair - Safety Awareness Fair CURRENT FUNC. DEFICITS: Self-Care, Mobility, Endurance, Balance, and Safety Awareness SIGNATURE PANEL: (CLERICAL METHODS ANALYST)
[2021-09-24] MEDS: ATORVASTATIN 80 MG TAB PO SCH (19:56)
[2021-09-25] MEDS: TRAMADOL HCL 50 MG TAB PO PRN ×4 (03:40→17:29)
[2021-09-25 06:18] LABS: Absolute Lymphocytes (CBC) 1.9 K/uL (0.7-4.9); Basophils % 0.4 % (0-1.3); Hematocrit 44.4 % (39.6-49.0); Lymphocytes % 17.3 % (15.3-44.8); MPV 8.8 fL (7.6-11.3); RBC Red Blood Cell Count 4.79 M/uL (4.33-5.43)
[2021-09-25 06:35] LABS: Albumin 2.3 g/dL (3.4-5.0); BUN Blood Urea Nitrogen 12 mg/dL (7-18); Bicarbonate 31 mmol/L (21-32); Glucose Level 104 mg/dL (74-106); Magnesium 2.4 mg/dL (1.8-2.4); Potassium 4.4 mmol/L (3.5-5.1); Prealbumin 7.1 mg/dL (20-40); Sodium Level 135 mmol/L (136-145)
[2021-09-25] MEDS: CLOPIDOGREL 75 MG TABLET PO SCH (06:53)
[2021-09-25] MEDS: ASPIRIN 81 MG CHEWABLE TABLET PO SCH (06:53)
[2021-09-25] MEDS: lisinopriL 5 MG TAB PO SCH ×2 (06:53→19:19)
[2021-09-25] MEDS: CRANBERRY FRUIT EXTRACT 400 MG CAP PO SCH ×2 (06:53→19:19)
[2021-09-25] MEDS: FAMOTIDINE 20 MG TAB PO SCH ×2 (06:54→19:20)
[2021-09-25] MEDS: ENOXAPARIN 40 MG/0.4 ML SQ SCH (06:54)
[2021-09-25] MEDS: GABAPENTIN 300 MG CAP PO SCH ×2 (06:54→19:20)
[2021-09-25] MEDS: THIAMINE HCL 100 MG TABLET PO SCH (06:54)
[2021-09-25] MEDS: MAGNESIUM OXIDE 400 MG TAB PO SCH ×2 (06:55→19:20)
[2021-09-25] MEDS: predniSONE 20 MG TAB PO SCH (13:37)
--- NOTE | 2021-09-25 14:55 | RAD REPORT ---
EXAM DESCRIPTION: CT - Head Brain Wo Cont - 09/25/2021 2:39 pm CLINICAL HISTORY: r/o hemorrhagic conversion COMPARISON: Extremity Venous Uni Ltd dated 09/20/2021 TECHNIQUE: All CT scans are performed using dose optimization technique as appropriate and may inclu de automated exposure control or mA/KV adjustment according to patient size. FINDINGS: Acute left pontine infarct identified. No evidence acute intracranial hemorrhage. No mass effect or midline shift. No acute large vascular territory infarct. Left mastoid effusion. There is sclerosis of the left temporal bone. This may represent sequela of pr ior mastoiditis. The calvarium is intact. IMPRESSION: Moderate left pontine infarct which is likely acute or subacute. No priors available for comparison. No acute intracranial hemorrhage.
--- NOTE | 2021-09-25 17:36 | R.PN ---
PROGRESS NOTES ENCOUNTER DATE AND TIME: 09/25/2021 17:26 (WOODWORKING MACHINE SETTER) NAME MICHEAL LIN DATE OF : 1955 DATE OF ADMISSION: 09/18/2021 17:17 (WOODWORKING MACHINE SETTER) STROKECHIEF COMPLAINT: Left hemispheric stroke with right sided arm and leg weakness and numbness. Left brain affected right body, speech and swallowing SUBJECTIVE: Pt denied any depression. Pt denied any Shortness of Breath. Ambulated 59' with minimum assistance using a rolling walker. Noncontrast head CT scan show acute to subacute left pontine infarct. Will obtain prior brain imaging from [facility] for comparision. He has more pain and swelling in his right hand and both legs. His CBC with differential is normal. His basic metabolic panel shows mildly low sodium of 135 and low prealbumin of 7.1. Uric acid level is normal at 3.5. Self-propelled wheelchair 300' with minimum assistance. VITAL SIGNS Temperature: 97.8 F SBP/DBP: 106/65 Pulse: 62 Resp: 16 MEDICATION ALLERGIES: No Known Drug Allergies (NKDA) ENVIRONMENTAL ALLERGIES: - Substance Allergies None Known - Other Allergies None Known NURSING: - Shower allowing shower - Bladder care per protocol - Skin care per protocol PRECAUTIONS: - Weight Bearing Precaution WBAT right LE ACTIVITIES OOB only with supervision THERAPIES: - Dietary and Nutrition Adequate Nutrition. Nutritional Education. Nutritional Supplements. - Occupational Therapy Cognitive Retraining. Evaluate and Treat. ADL Training. Transfer Training. Adaptive Equipment. UE Str engthening. - Speech Therapy Cognitive Training. Expressive Language Skills. Memory Strategies. Receptive Language Skills. Speech Intelligibility Training. - Physical Therapy Gait Training. Balance Training. Evaluate and Treat. Transfer Training. Mobility Training. Safety Jaky reness. LE Strengthening. PHYSICAL EXAM - Gen Alert and awake Lying in bed No apparent distress Oriented to: person, time, and place - Skin No skin breakdown. No abnormalities - Eyes No abnormalities - ENMT No abnormalities - Neck No abnormalities - CVS RRR - Chest No abnormalities - Resp Clear to auscultation - Abd Soft - GI nondistended Deferred - No abnormalities - Ext Mild right upper and lower extremity edema. - MSK 2/5 weakness in right upper and 3/5 weakness in right lower extremity. - Neuro 2/5 weakness in right upper and 3/5 weakness in right lower extremity. Decreased sensation on right v ersus left upper and lower extremity. ASSESSMENT: Pt. is a 66 yo Right-handed male.On 09/15/2021 Pt. presented to [facility] with sudden onset of r ight-side weakness.On 09/15/2021 he was admitted to [facility] with diagnosis STROKE.His impairme nt category is Stroke 01 - Right Body (Left Brain) (01.2).Pre-morbidly, Pt. was independent/mod-I in Locomotion, Social Cognition, Balance, Transfers Control, and Safety Awareness; and he had good Sphi ncter Control, Self-Care, and Communication.Currently, he has deficits of Locomotion, Safety Awarenes s, Social Cognition, Balance, Transfers Control, Sphincter Control, Self-Care, Endurance, and Communi cation.Pt. is now referred to [facility] for acute in-patient rehabilitation i n order to maximize patient's functional independence in activities of daily living, strength, ROM, a nd mobility.- Rehab Goal Patient has realistic goal of being discharged at assistance level 7-Ind to reside at Home with Pt s elf. MDM/PLAN: - Physical Therapy Gait dysfunction - to improve, our physical therapists will perform initial evaluation of pt's statu s upon admission and devise an individualized program for Gait Training, and Wheel Chair mobility Inability to transfer - to improve, our physical therapists will perform initial evaluation of pt's status upon admission and devise an individualized program for Bed mobility Need for home safety evaluation - to improve, our physical therapists will perform initial evaluatio n of pt's status upon admission and devise an individualized program for Home Evaluation Need in caregiver upon discharge - to improve, our physical therapists will perform initial evaluati on of pt's status upon admission and devise an individualized program for Caregiver Training New precaution - to improve, our physical therapists will perform initial evaluation of pt's status upon admission and devise an individualized program for Patient precaution education Edema - to improve, our physical therapists will perform initial evaluation of pt's status upon admi ssion and devise an individualized program for Elevation Training, and Lymphedema Therapy Poor balance - to improve, our physical therapists will perform initial evaluation of pt's status up on admission and devise an individualized program for Balance Training Poor endurance - to improve, our physical therapists will perform initial evaluation of pt's status upon admission and devise an individualized program for Endurance Training Weakness - to improve, our physical therapists will perform initial evaluation of pt's status upon a dmission and devise an individualized program for Aquatic Therapy, Neuromuscular Reeducation, and Str engthening Achieving independence - to improve, our physical therapists will perform initial evaluation of pt's status upon admission and devise an individualized program for Community Reintegration Activities - Occupational Therapy ADL deficits - to improve, our occupation therapists will perform initial evaluation of pt's status upon admission and devise an individualized program for Bathing, Bed mobility, Community Reintegratio n, Cooking, Dressing, Eating, Fine Motor Skills, Grooming, Homemaking, Kitchen Mobility, Laundry, Pat ient Education, Safety Awareness, Splinting - Positioning, Transfers(Toilet, Tub, Shower), and Wheel Chair Management Cognitive deficits - to improve, our occupation therapists will perform initial evaluation of pt's s tatus upon admission and devise an individualized program for Cognition - orientation Need for childbirth and infant care teacher - to improve, our occupation therapists will perform initial evaluation of pt's status upon admission and devise an individualized program for Caregiver Training Weakness - to improve, our occupation therapists will perform initial evaluation of pt's status upon admission and devise an individualized program for Aquatic Therapy, Balance, Endurance, UE ROM, and UE strengthening - Other See attached MAR (Medication Administration Record) - Diet Type Continue Regular - Diet - Liquid Texture Continue Regular - Tube Feed Continue N/A - Bladder care per protocol - Weight Bearing Precaution WBAT right LE - Skin care per protocol - Diet - Solid Texture Continue Regular - Shower allowing shower for Dementia, TBI, Stroke, or others FUNCTIONAL STATUS: UPDATED AT WEEKLY TEAM CONFERENCE - Bladder Same accident frequency: 7-Ind - No accidents in the past 7 days - Bowel Same accident frequency: 7-Ind - No accidents in the past 7 days - Walking Same score based on distance walked: 0(N/A) Same score based on distance walked: 1(<=50ft) - Wheelchair Same score based on distance traveled: 0(N/A) FUNCTIONAL STATUS: - Self-Care A. Eating sup B. Grooming Ind C. Bathing maxA D. Dressing - Upper Tylor E. Dressing - Lower modA F. Toileting modA - Sphincter Control G. Bladder control En H. Bowel control En - Transfers Control I. Bed/Chair/Wheelchair modA J. Toilet Tylor K. Tub/Shower maxA - Locomotion L. Walk/Wheelchair (B) modA M. Stairs Dep - Communication N. Comprehension (B) En O. Expression (B) Tylor - Social Cognition P. Social Interaction Ind Q. Problem Solving sup R. Memory Tylor - Endurance Fair - Balance Poor - Safety Awareness Fair QI SCORES: - Self-Care A. Eating 03-Partial/moderate assistance B. Oral hygiene 03-Partial/moderate assistance C. Toileting hygiene 03-Partial/moderate assistance E. Shower/bathe self 02-Substantial/maximal assistance F. Upper body dressing 03-Partial/moderate assistance G. Lower body dressing 02-Substantial/maximal assistance H. Putting on/taking off footwear 88-Not attempted due to medical condition or safety concerns - Mobility A. Roll left and right 03-Partial/moderate assistance B. Sit to lying 03-Partial/moderate assistance C. Lying to sitting on side of bed 03-Partial/moderate assistance D. Sit to stand 03-Partial/moderate assistance E. Chair/[id number] transfer 03-Partial/moderate assistance F. Toilet transfer 03-Partial/moderate assistance G. Car transfer 88-Not attempted due to medical condition or safety concerns I. Walk 10 feet 03-Partial/moderate assistance J. Walk 50 feet with two turns 88-Not attempted due to medical condition or safety concerns K. Walk 150 feet 88-Not attempted due to medical condition or safety concerns L. Walking 10 feet on uneven surfaces 88-Not attempted due to medical condition or safety concerns M. 1 step (curb) 88-Not attempted due to medical condition or safety concerns N. 4 steps 88-Not attempted due to medical condition or safety concerns O. 12 steps 88-Not attempted due to medical condition or safety concerns P. Picking up object 88-Not attempted due to medical condition or safety concerns R. Wheel 50 feet with two turns 88-Not attempted due to medical condition or safety concerns S. Wheel 150 feet 88-Not attempted due to medical condition or safety concerns - Bladder and Bowel Bladder continence Bowel continence - Endurance Fair - Balance Fair - Safety Awareness Fair CURRENT FUNC. DEFICITS: Self-Care, Mobility, Endurance, Balance, and Safety Awareness SIGNATURE PANEL: (WOODWORKING MACHINE SETTER)
[2021-09-25] MEDS: DICLOFENAC SOD D.R. 75 MG TAB PO SCH (19:19)
[2021-09-25] MEDS: MELATONIN 3 MG TABLET PO PRN (19:20)
[2021-09-25] MEDS: ATORVASTATIN 80 MG TAB PO SCH (19:20)
[2021-09-26] MEDS: ENOXAPARIN 40 MG/0.4 ML SQ SCH (07:06)
[2021-09-26] MEDS: lisinopriL 5 MG TAB PO SCH ×2 (08:00→19:42)
[2021-09-26] MEDS: DICLOFENAC SOD D.R. 75 MG TAB PO SCH ×2 (08:00→19:43)
[2021-09-26] MEDS: GABAPENTIN 300 MG CAP PO SCH ×2 (08:00→19:41)
[2021-09-26] MEDS: CRANBERRY FRUIT EXTRACT 400 MG CAP PO SCH ×2 (08:00→19:40)
[2021-09-26] MEDS: ASPIRIN 81 MG CHEWABLE TABLET PO SCH (08:01)
[2021-09-26] MEDS: THIAMINE HCL 100 MG TABLET PO SCH (08:02)
[2021-09-26] MEDS: predniSONE 20 MG TAB PO SCH (08:02)
[2021-09-26] MEDS: CLOPIDOGREL 75 MG TABLET PO SCH (08:02)
[2021-09-26] MEDS: MAGNESIUM OXIDE 400 MG TAB PO SCH ×2 (08:02→19:41)
[2021-09-26] MEDS: FAMOTIDINE 20 MG TAB PO SCH ×2 (08:02→19:41)
[2021-09-26] MEDS: TRAMADOL HCL 50 MG TAB PO PRN ×3 (08:03→15:58)
--- NOTE | 2021-09-26 09:44 | P.RH.PN ---
Estimated Length of Stay: 18 Expected Discharge Date: 10/07/21 Discharge Disposition Plan: Home Family Support: Yes [facility] Goal: Mobility, Transfers, Self Care Vital Signs: Last Vital Signs Temp 97.3 F 09/26/21 07:04 Pulse 53 09/26/21 08:00 Resp 18 09/26/21 09:03 BP 146/79 H 09/26/21 08:00 Pulse Ox 96 09/26/21 09:03 Laboratory: Laboratory Last Values WBC 10.80 K/uL (4.3-10.9) 09/25/21 05:56 RBC 4.79 M/uL (4.33-5.43) 09/25/21 05:56 Hgb 15.3 g/dL (13.6-17.9) 09/25/21 05:56 Hct 44.4 % (39.6-49.0) 09/25/21 05:56 MCV 92.8 fL (80-100) 09/25/21 05:56 MCH 31.9 pg (27.0-35.0) 09/25/21 05:56 MCHC 34.3 g/dL (32.0-36.0) 09/25/21 05:56 RDW 12.9 % (12.1-15.2) 09/25/21 05:56 Plt Count 314 K/uL (152-406) D 09/25/21 05:56 MPV 8.8 fL (7.6-11.3) 09/25/21 05:56 Neutrophils % 67.7 % (41.7-73.7) 09/25/21 05:56 Lymphocytes % 17.3 % (15.3-44.8) 09/25/21 05:56 Monocytes % 12.9 % (3.3-12.3) H 09/25/21 05:56 Eosinophils % 1.7 % (0-4.4) 09/25/21 05:56 Basophils % 0.4 % (0-1.3) 09/25/21 05:56 Absolute Neutrophils 7.3 K/uL (1.8-8.0) 09/25/21 05:56 Absolute Lymphocytes 1.9 K/uL (0.7-4.9) 09/25/21 05:56 Absolute Monocytes 1.4 K/uL (0.1-1.3) H 09/25/21 05:56 Absolute Eosinophils 0.2 K/uL (0-0.5) 09/25/21 05:56 Absolute Basophils 0.0 K/uL (0-0.5) 09/25/21 05:56 Sodium 135 mmol/L (136-145) L 09/25/21 05:56 Potassium 4.4 mmol/L (3.5-5.1) 09/25/21 05:56 Chloride 100 mmol/L (98-107) 09/25/21 05:56 Carbon Dioxide 31 mmol/L (21-32) 09/25/21 05:56 BUN 12 mg/dL (7-18) 09/25/21 05:56 Creatinine 0.61 mg/dL (0.55-1.3) 09/25/21 05:56 Estimated GFR > 90 mL/min (=/>90) 09/25/21 05:56 Glucose 104 mg/dL (74-106) 09/25/21 05:56 Uric Acid 3.5 mg/dL (3.5-7.2) 09/25/21 14:27 Calcium 8.9 mg/dL (8.5-10.1) 09/25/21 05:56 Magnesium 2.4 mg/dL (1.8-2.4) 09/25/21 05:56 Albumin 2.3 g/dL (3.4-5.0) L 09/25/21 05:56 Prealbumin 7.1 mg/dL (20-40) L 09/25/21 05:56 Urine Color Yellow (Yellow) 09/18/21 18:55 Urine Appearance Clear (Clear) 09/18/21 18:55 Urine pH 6.0 (5.0-7.0) 09/18/21 18:55 Ur Specific Savage 1.020 (1.005-1.030) 09/18/21 18:55 Glucose (UA)(Auto) Negative (Negative) 09/18/21 18:55 Urine Ketones Negative (Negative) 09/18/21 18:55 Urine Blood 2+ (Negative) H 09/18/21 18:55 Urine Nitrite Negative (Negative) 09/18/21 18:55 Urine Bilirubin Negative (Negative) 09/18/21 18:55 Urine Urobilinogen 0.2 mg/dL (0.2-1.0) 09/18/21 18:55 Ur Leukocyte Esterase Negative (Negative) 09/18/21 18:55 Urine RBC 10-20 /HPF (NONE SEEN) H 09/18/21 18:55 Urine WBC <5 /HPF (<5) 09/18/21 18:55 Ur Squamous Epith Cells <5 /HPF (NONE SEEN) 09/18/21 18:55 Urine Bacteria 20-50 /HPF (NONE SEEN) H 09/18/21 18:55 Urine Mucus 1+ /HPF (NONE SEEN) 09/18/21 18:55 Urine Culture Reflexed Not needed 09/18/21 18:55 Urine Total Protein Negative (Negative) 09/18/21 18:55 SARS-CoV-2 Rap RNA(RT-PCR) Negative (NEGATIVE) 09/22/21 07:17 Weight: 194 lb Wound Present: No Closed Surgical Incision Present: No Negative Pressure Wound Therapy Present: No Physician Update: He is doing much better today with much less pain and swelling in the right hand and legs. Ambulated 30' to 45' min assistance. Needed moderate assistance to stand. He is a min assistance for lower body dressing. Mod assistance for showers. He is correcting for balance. He is doing well with swallowing at thin liquids and regular solids. Comment: no skin breakdown. Functional Improvement: Patient is experiencing severe arthritic pain, joint swelling, and muscle weakness of unknown origin at this time. Patient initially demonstrated increased gait distance, w/ less assistance needed, however has been severely limited in progress due to current ailment. Summary: Patient's care plan and detention goals have been reviewed and revised as necessary. Please see the Rehabilitation Signature page for all necessary signatures.
[2021-09-26] MEDS: ATORVASTATIN 80 MG TAB PO SCH (19:43)
[2021-09-26] MEDS: MELATONIN 3 MG TABLET PO PRN (19:43)
[2021-09-26] MEDS: DOCUSATE NA/SENNA CONC 1 TAB PO PRN (19:44)
[2021-09-27] MEDS: TRAMADOL HCL 50 MG TAB PO PRN ×3 (04:59→15:57)
[2021-09-27] MEDS: ENOXAPARIN 40 MG/0.4 ML SQ SCH (06:59)
[2021-09-27] MEDS: lisinopriL 5 MG TAB PO SCH ×2 (07:43→19:29)
[2021-09-27] MEDS: ASPIRIN 81 MG CHEWABLE TABLET PO SCH (07:44)
[2021-09-27] MEDS: CLOPIDOGREL 75 MG TABLET PO SCH (07:44)
[2021-09-27] MEDS: CRANBERRY FRUIT EXTRACT 400 MG CAP PO SCH ×2 (07:44→19:28)
[2021-09-27] MEDS: predniSONE 20 MG TAB PO SCH (07:44)
[2021-09-27] MEDS: FAMOTIDINE 20 MG TAB PO SCH ×2 (07:44→19:30)
[2021-09-27] MEDS: DICLOFENAC SOD D.R. 75 MG TAB PO SCH ×2 (07:44→19:30)
[2021-09-27] MEDS: THIAMINE HCL 100 MG TABLET PO SCH (07:44)
[2021-09-27] MEDS: GABAPENTIN 300 MG CAP PO SCH ×2 (07:44→19:29)
[2021-09-27] MEDS: MAGNESIUM OXIDE 400 MG TAB PO SCH ×2 (07:45→19:29)
[2021-09-27] MEDS ORDERED: POLYETHYL GLY 3350 17 GM/DOSE PO PRN (09:15)
[2021-09-27] MEDS: MELATONIN 3 MG TABLET PO PRN (19:30)
[2021-09-27] MEDS: ATORVASTATIN 80 MG TAB PO SCH (19:30)
[2021-09-28] MEDS: FAMOTIDINE 20 MG TAB PO SCH ×2 (07:52→18:43)
[2021-09-28] MEDS: DICLOFENAC SOD D.R. 75 MG TAB PO SCH ×2 (07:52→18:44)
[2021-09-28] MEDS: ASPIRIN 81 MG CHEWABLE TABLET PO SCH (07:52)
[2021-09-28] MEDS: CRANBERRY FRUIT EXTRACT 400 MG CAP PO SCH ×2 (07:53→18:44)
[2021-09-28] MEDS: THIAMINE HCL 100 MG TABLET PO SCH (07:53)
[2021-09-28] MEDS: ENOXAPARIN 40 MG/0.4 ML SQ SCH (07:53)
[2021-09-28] MEDS: GABAPENTIN 300 MG CAP PO SCH ×2 (07:53→18:43)
[2021-09-28] MEDS: CLOPIDOGREL 75 MG TABLET PO SCH (07:53)
[2021-09-28] MEDS: MAGNESIUM OXIDE 400 MG TAB PO SCH ×2 (07:53→18:44)
[2021-09-28] MEDS: lisinopriL 5 MG TAB PO SCH ×2 (07:53→18:42)
[2021-09-28] MEDS: MELATONIN 3 MG TABLET PO PRN (18:43)
[2021-09-28] MEDS: ATORVASTATIN 80 MG TAB PO SCH (18:44)
[2021-09-28] MEDS: TRAMADOL HCL 50 MG TAB PO PRN (22:05)
[2021-09-29] MEDS: TRAMADOL HCL 50 MG TAB PO PRN ×4 (06:56→19:56)
[2021-09-29] MEDS: DICLOFENAC SOD D.R. 75 MG TAB PO SCH ×2 (08:03→19:14)
[2021-09-29] MEDS: CLOPIDOGREL 75 MG TABLET PO SCH (08:03)
[2021-09-29] MEDS: FAMOTIDINE 20 MG TAB PO SCH ×2 (08:03→19:14)
[2021-09-29] MEDS: THIAMINE HCL 100 MG TABLET PO SCH (08:04)
[2021-09-29] MEDS: MAGNESIUM OXIDE 400 MG TAB PO SCH ×2 (08:04→19:13)
[2021-09-29] MEDS: CRANBERRY FRUIT EXTRACT 400 MG CAP PO SCH ×2 (08:04→19:13)
[2021-09-29] MEDS: ASPIRIN 81 MG CHEWABLE TABLET PO SCH (08:04)
[2021-09-29] MEDS: GABAPENTIN 300 MG CAP PO SCH ×2 (08:04→19:13)
[2021-09-29] MEDS: ENOXAPARIN 40 MG/0.4 ML SQ SCH (08:05)
[2021-09-29] MEDS: lisinopriL 5 MG TAB PO SCH ×2 (08:06→19:14)
--- NOTE | 2021-09-29 17:07 | R.PN ---
PROGRESS NOTES ENCOUNTER DATE AND TIME: 09/29/2021 17:03 (SECURITY OPERATIONS SPECIALIST) NAME MICHEAL LIN DATE OF : 1955 DATE OF ADMISSION: 09/18/2021 17:17 (SECURITY OPERATIONS SPECIALIST) STROKECHIEF COMPLAINT: Left hemispheric stroke with right sided arm and leg weakness and numbness. Left brain affected right body, speech and swallowing SUBJECTIVE: Pt denied any depression. Pt denied any Shortness of Breath. Ambulated 500' with standby assistance using a rolling walker. Noncontrast head CT scan show acute to subacute left pontine infarct. Will obtain prior brain imaging from [facility] for comparision. He has more pain and swelling in his right hand and both legs. His CBC with differential is normal. His basic metabolic panel shows mildly low sodium of 135 and low prealbumin of 7.1. Uric acid level is normal at 3.5. Self-propelled wheelchair 250' with modified independence. VITAL SIGNS Temperature: 97.9 F SBP/DBP: 140/66 Pulse: 52 Resp: 16 MEDICATION ALLERGIES: No Known Drug Allergies (NKDA) ENVIRONMENTAL ALLERGIES: - Substance Allergies None Known - Other Allergies None Known NURSING: - Shower allowing shower - Bladder care per protocol - Skin care per protocol PRECAUTIONS: - Weight Bearing Precaution WBAT right LE ACTIVITIES OOB only with supervision THERAPIES: - Dietary and Nutrition Adequate Nutrition. Nutritional Education. Nutritional Supplements. - Occupational Therapy Cognitive Retraining. Evaluate and Treat. ADL Training. Transfer Training. Adaptive Equipment. UE Str engthening. - Speech Therapy Cognitive Training. Expressive Language Skills. Memory Strategies. Receptive Language Skills. Speech Intelligibility Training. - Physical Therapy Gait Training. Balance Training. Evaluate and Treat. Transfer Training. Mobility Training. Safety Jaky reness. LE Strengthening. PHYSICAL EXAM - Gen Alert and awake Lying in bed No apparent distress Oriented to: person, time, and place - Skin No skin breakdown. No abnormalities - Eyes No abnormalities - ENMT No abnormalities - Neck No abnormalities - CVS RRR - Chest No abnormalities - Resp Clear to auscultation - Abd Soft - GI nondistended Deferred - No abnormalities - Ext Mild right upper and lower extremity edema. - MSK 2/5 weakness in right upper and 3/5 weakness in right lower extremity. - Neuro 2/5 weakness in right upper and 3/5 weakness in right lower extremity. Decreased sensation on right v ersus left upper and lower extremity. ASSESSMENT: Pt. is a 66 yo Right-handed male.On 09/15/2021 Pt. presented to [facility] with sudden onset of r ight-side weakness.On 09/15/2021 he was admitted to [facility] with diagnosis STROKE.His impairme nt category is Stroke 01 - Right Body (Left Brain) (01.2).Pre-morbidly, Pt. was independent/mod-I in Locomotion, Social Cognition, Balance, Transfers Control, and Safety Awareness; and he had good Sphi ncter Control, Self-Care, and Communication.Currently, he has deficits of Locomotion, Safety Awarenes s, Social Cognition, Balance, Transfers Control, Sphincter Control, Self-Care, Endurance, and Communi cation.Pt. is now referred to [facility] for acute in-patient rehabilitation i n order to maximize patient's functional independence in activities of daily living, strength, ROM, a nd mobility.- Rehab Goal Patient has realistic goal of being discharged at assistance level 7-Ind to reside at Home with Pt s elf. MDM/PLAN: - Physical Therapy Gait dysfunction - to improve, our physical therapists will perform initial evaluation of pt's statu s upon admission and devise an individualized program for Gait Training, and Wheel Chair mobility Inability to transfer - to improve, our physical therapists will perform initial evaluation of pt's status upon admission and devise an individualized program for Bed mobility Need for home safety evaluation - to improve, our physical therapists will perform initial evaluatio n of pt's status upon admission and devise an individualized program for Home Evaluation Need in caregiver upon discharge - to improve, our physical therapists will perform initial evaluati on of pt's status upon admission and devise an individualized program for Caregiver Training New precaution - to improve, our physical therapists will perform initial evaluation of pt's status upon admission and devise an individualized program for Patient precaution education Edema - to improve, our physical therapists will perform initial evaluation of pt's status upon admi ssion and devise an individualized program for Elevation Training, and Lymphedema Therapy Poor balance - to improve, our physical therapists will perform initial evaluation of pt's status up on admission and devise an individualized program for Balance Training Poor endurance - to improve, our physical therapists will perform initial evaluation of pt's status upon admission and devise an individualized program for Endurance Training Weakness - to improve, our physical therapists will perform initial evaluation of pt's status upon a dmission and devise an individualized program for Aquatic Therapy, Neuromuscular Reeducation, and Str engthening Achieving independence - to improve, our physical therapists will perform initial evaluation of pt's status upon admission and devise an individualized program for Community Reintegration Activities - Occupational Therapy ADL deficits - to improve, our occupation therapists will perform initial evaluation of pt's status upon admission and devise an individualized program for Bathing, Bed mobility, Community Reintegratio n, Cooking, Dressing, Eating, Fine Motor Skills, Grooming, Homemaking, Kitchen Mobility, Laundry, Pat ient Education, Safety Awareness, Splinting - Positioning, Transfers(Toilet, Tub, Shower), and Wheel Chair Management Cognitive deficits - to improve, our occupation therapists will perform initial evaluation of pt's s tatus upon admission and devise an individualized program for Cognition - orientation Need for chronic care nurse - to improve, our occupation therapists will perform initial evaluation of pt's status upon admission and devise an individualized program for Caregiver Training Weakness - to improve, our occupation therapists will perform initial evaluation of pt's status upon admission and devise an individualized program for Aquatic Therapy, Balance, Endurance, UE ROM, and UE strengthening - Other See attached MAR (Medication Administration Record) - Diet Type Continue Regular - Diet - Liquid Texture Continue Regular - Tube Feed Continue N/A - Bladder care per protocol - Weight Bearing Precaution WBAT right LE - Skin care per protocol - Diet - Solid Texture Continue Regular - Shower allowing shower for Dementia, TBI, Stroke, or others FUNCTIONAL STATUS: UPDATED AT WEEKLY TEAM CONFERENCE - Bladder Same accident frequency: 7-Ind - No accidents in the past 7 days - Bowel Same accident frequency: 7-Ind - No accidents in the past 7 days - Walking Same score based on distance walked: 0(N/A) Same score based on distance walked: 1(<=50ft) - Wheelchair Same score based on distance traveled: 0(N/A) FUNCTIONAL STATUS: - Self-Care A. Eating sup B. Grooming Ind C. Bathing maxA D. Dressing - Upper Tylor E. Dressing - Lower modA F. Toileting modA - Sphincter Control G. Bladder control En H. Bowel control En - Transfers Control I. Bed/Chair/Wheelchair modA J. Toilet Tylor K. Tub/Shower maxA - Locomotion L. Walk/Wheelchair (B) modA M. Stairs Dep - Communication N. Comprehension (B) En O. Expression (B) Tylor - Social Cognition P. Social Interaction Ind Q. Problem Solving sup R. Memory Tylor - Endurance Fair - Balance Poor - Safety Awareness Fair QI SCORES: - Self-Care A. Eating 03-Partial/moderate assistance B. Oral hygiene 03-Partial/moderate assistance C. Toileting hygiene 03-Partial/moderate assistance E. Shower/bathe self 02-Substantial/maximal assistance F. Upper body dressing 03-Partial/moderate assistance G. Lower body dressing 02-Substantial/maximal assistance H. Putting on/taking off footwear 88-Not attempted due to medical condition or safety concerns - Mobility A. Roll left and right 03-Partial/moderate assistance B. Sit to lying 03-Partial/moderate assistance C. Lying to sitting on side of bed 03-Partial/moderate assistance D. Sit to stand 03-Partial/moderate assistance E. Chair/ojt-de-tcxqu transfer 03-Partial/moderate assistance F. Toilet transfer 03-Partial/moderate assistance G. Car transfer 88-Not attempted due to medical condition or safety concerns I. Walk 10 feet 03-Partial/moderate assistance J. Walk 50 feet with two turns 88-Not attempted due to medical condition or safety concerns K. Walk 150 feet 88-Not attempted due to medical condition or safety concerns L. Walking 10 feet on uneven surfaces 88-Not attempted due to medical condition or safety concerns M. 1 step (curb) 88-Not attempted due to medical condition or safety concerns N. 4 steps 88-Not attempted due to medical condition or safety concerns O. 12 steps 88-Not attempted due to medical condition or safety concerns P. Picking up object 88-Not attempted due to medical condition or safety concerns R. Wheel 50 feet with two turns 88-Not attempted due to medical condition or safety concerns S. Wheel 150 feet 88-Not attempted due to medical condition or safety concerns - Bladder and Bowel Bladder continence Bowel continence - Endurance Fair - Balance Fair - Safety Awareness Fair CURRENT FUNC. DEFICITS: Self-Care, Mobility, Endurance, Balance, and Safety Awareness SIGNATURE PANEL: (SECURITY OPERATIONS SPECIALIST)
[2021-09-29] MEDS: ATORVASTATIN 80 MG TAB PO SCH (19:14)
[2021-09-29] MEDS: MELATONIN 3 MG TABLET PO PRN (19:14)
[2021-09-30] MEDS: TRAMADOL HCL 50 MG TAB PO PRN ×2 (04:54→19:52)
[2021-09-30] MEDS: MAGNESIUM OXIDE 400 MG TAB PO SCH ×2 (07:33→19:51)
[2021-09-30] MEDS: GABAPENTIN 300 MG CAP PO SCH ×2 (07:33→19:50)
[2021-09-30] MEDS: ENOXAPARIN 40 MG/0.4 ML SQ SCH (07:33)
[2021-09-30] MEDS: CRANBERRY FRUIT EXTRACT 400 MG CAP PO SCH ×2 (07:33→19:50)
[2021-09-30] MEDS: ASPIRIN 81 MG CHEWABLE TABLET PO SCH (07:33)
[2021-09-30] MEDS: FAMOTIDINE 20 MG TAB PO SCH ×2 (07:34→19:51)
[2021-09-30] MEDS: THIAMINE HCL 100 MG TABLET PO SCH (07:34)
[2021-09-30] MEDS: CLOPIDOGREL 75 MG TABLET PO SCH (07:34)
[2021-09-30] MEDS: DICLOFENAC SOD D.R. 75 MG TAB PO SCH ×2 (07:35→19:50)
[2021-09-30] MEDS: lisinopriL 5 MG TAB PO SCH ×2 (07:35→19:52)
[2021-09-30 08:43] LABS: Absolute Lymphocytes (CBC) 2.5 K/uL (0.7-4.9); Basophils % 0.9 % (0-1.3); Hematocrit 49.9 % (39.6-49.0); Lymphocytes % 20.4 % (15.3-44.8); MPV 8.3 fL (7.6-11.3); RBC Red Blood Cell Count 5.28 M/uL (4.33-5.43)
[2021-09-30 14:42] LABS: Albumin 2.9 g/dL (3.4-5.0); BUN Blood Urea Nitrogen 18 mg/dL (7-18); Bicarbonate 32 mmol/L (21-32); Glucose Level 125 mg/dL (74-106); Magnesium 2.1 mg/dL (1.8-2.4); Potassium 4.2 mmol/L (3.5-5.1); Sodium Level 139 mmol/L (136-145)
--- NOTE | 2021-09-30 17:22 | R.PN ---
PROGRESS NOTES ENCOUNTER DATE AND TIME: 09/30/2021 17:16 (WOOD AND HARDWARE OUTFITTER) NAME MICHEAL LIN DATE OF : 1955 DATE OF ADMISSION: 09/18/2021 17:17 (WOOD AND HARDWARE OUTFITTER) STROKECHIEF COMPLAINT: Left hemispheric stroke with right sided arm and leg weakness and numbness. Left brain affected right body, speech and swallowing SUBJECTIVE: Pt denied any depression. Pt denied any Shortness of Breath. Ambulated 500' with standby assistance using a rolling walker. Noncontrast head CT scan show acute to subacute left pontine infarct. He has less pain and swelling in his right hand and both legs. His CBC with differential is normal e xcept a mildly increased WBC of 12.3.mal. His basic metabolic panel shows mildly elevated glucose of 125. VITAL SIGNS Temperature: 97.8 F SBP/DBP: 129/72 Pulse: 51 Resp: 15 MEDICATION ALLERGIES: No Known Drug Allergies (NKDA) ENVIRONMENTAL ALLERGIES: - Substance Allergies None Known - Other Allergies None Known NURSING: - Shower allowing shower - Bladder care per protocol - Skin care per protocol PRECAUTIONS: - Weight Bearing Precaution WBAT right LE ACTIVITIES OOB only with supervision THERAPIES: - Dietary and Nutrition Adequate Nutrition. Nutritional Education. Nutritional Supplements. - Occupational Therapy Cognitive Retraining. Evaluate and Treat. ADL Training. Transfer Training. Adaptive Equipment. UE Str engthening. - Speech Therapy Cognitive Training. Expressive Language Skills. Memory Strategies. Receptive Language Skills. Speech Intelligibility Training. - Physical Therapy Gait Training. Balance Training. Evaluate and Treat. Transfer Training. Mobility Training. Safety Jaky reness. LE Strengthening. PHYSICAL EXAM - Gen Alert and awake Lying in bed No apparent distress Oriented to: person, time, and place - Skin No skin breakdown. No abnormalities - Eyes No abnormalities - ENMT No abnormalities - Neck No abnormalities - CVS RRR - Chest No abnormalities - Resp Clear to auscultation - Abd Soft - GI nondistended Deferred - No abnormalities - Ext Mild right upper and lower extremity edema. - MSK 2/5 weakness in right upper and 3/5 weakness in right lower extremity. - Neuro 2/5 weakness in right upper and 3/5 weakness in right lower extremity. Decreased sensation on right v ersus left upper and lower extremity. ASSESSMENT: Pt. is a 66 yo Right-handed male.On 09/15/2021 Pt. presented to [facility] with sudden onset of r ight-side weakness.On 09/15/2021 he was admitted to [facility] with diagnosis STROKE.His impairme nt category is Stroke 01 - Right Body (Left Brain) (01.2).Pre-morbidly, Pt. was independent/mod-I in Locomotion, Social Cognition, Balance, Transfers Control, and Safety Awareness; and he had good Sphi ncter Control, Self-Care, and Communication.Currently, he has deficits of Locomotion, Safety Awarenes s, Social Cognition, Balance, Transfers Control, Sphincter Control, Self-Care, Endurance, and Communi cation.Pt. is now referred to [facility] for acute in-patient rehabilitation i n order to maximize patient's functional independence in activities of daily living, strength, ROM, a nd mobility.- Rehab Goal Patient has realistic goal of being discharged at assistance level 7-Ind to reside at Home with Pt s elf. MDM/PLAN: - Physical Therapy Gait dysfunction - to improve, our physical therapists will perform initial evaluation of pt's statu s upon admission and devise an individualized program for Gait Training, and Wheel Chair mobility Inability to transfer - to improve, our physical therapists will perform initial evaluation of pt's status upon admission and devise an individualized program for Bed mobility Need for home safety evaluation - to improve, our physical therapists will perform initial evaluatio n of pt's status upon admission and devise an individualized program for Home Evaluation Need in caregiver upon discharge - to improve, our physical therapists will perform initial evaluati on of pt's status upon admission and devise an individualized program for Caregiver Training New precaution - to improve, our physical therapists will perform initial evaluation of pt's status upon admission and devise an individualized program for Patient precaution education Edema - to improve, our physical therapists will perform initial evaluation of pt's status upon admi ssion and devise an individualized program for Elevation Training, and Lymphedema Therapy Poor balance - to improve, our physical therapists will perform initial evaluation of pt's status up on admission and devise an individualized program for Balance Training Poor endurance - to improve, our physical therapists will perform initial evaluation of pt's status upon admission and devise an individualized program for Endurance Training Weakness - to improve, our physical therapists will perform initial evaluation of pt's status upon a dmission and devise an individualized program for Aquatic Therapy, Neuromuscular Reeducation, and Str engthening Achieving independence - to improve, our physical therapists will perform initial evaluation of pt's status upon admission and devise an individualized program for Community Reintegration Activities - Occupational Therapy ADL deficits - to improve, our occupation therapists will perform initial evaluation of pt's status upon admission and devise an individualized program for Bathing, Bed mobility, Community Reintegratio n, Cooking, Dressing, Eating, Fine Motor Skills, Grooming, Homemaking, Kitchen Mobility, Laundry, Pat ient Education, Safety Awareness, Splinting - Positioning, Transfers(Toilet, Tub, Shower), and Wheel Chair Management Cognitive deficits - to improve, our occupation therapists will perform initial evaluation of pt's s tatus upon admission and devise an individualized program for Cognition - orientation Need for animal care service worker - to improve, our occupation therapists will perform initial evaluation of pt's status upon admission and devise an individualized program for Caregiver Training Weakness - to improve, our occupation therapists will perform initial evaluation of pt's status upon admission and devise an individualized program for Aquatic Therapy, Balance, Endurance, UE ROM, and UE strengthening - Other See attached MAR (Medication Administration Record) - Diet Type Continue Regular - Diet - Liquid Texture Continue Regular - Tube Feed Continue N/A - Bladder care per protocol - Weight Bearing Precaution WBAT right LE - Skin care per protocol - Diet - Solid Texture Continue Regular - Shower allowing shower for Dementia, TBI, Stroke, or others FUNCTIONAL STATUS: UPDATED AT WEEKLY TEAM CONFERENCE - Bladder Same accident frequency: 7-Ind - No accidents in the past 7 days - Bowel Same accident frequency: 7-Ind - No accidents in the past 7 days - Walking Same score based on distance walked: 0(N/A) Same score based on distance walked: 1(<=50ft) - Wheelchair Same score based on distance traveled: 0(N/A) FUNCTIONAL STATUS: - Self-Care A. Eating sup B. Grooming Ind C. Bathing maxA D. Dressing - Upper Tylor E. Dressing - Lower modA F. Toileting modA - Sphincter Control G. Bladder control En H. Bowel control En - Transfers Control I. Bed/Chair/Wheelchair modA J. Toilet Tylor K. Tub/Shower maxA - Locomotion L. Walk/Wheelchair (B) modA M. Stairs Dep - Communication N. Comprehension (B) En O. Expression (B) Tylor - Social Cognition P. Social Interaction Ind Q. Problem Solving sup R. Memory Tylor - Endurance Fair - Balance Poor - Safety Awareness Fair QI SCORES: - Self-Care A. Eating 03-Partial/moderate assistance B. Oral hygiene 03-Partial/moderate assistance C. Toileting hygiene 03-Partial/moderate assistance E. Shower/bathe self 02-Substantial/maximal assistance F. Upper body dressing 03-Partial/moderate assistance G. Lower body dressing 02-Substantial/maximal assistance H. Putting on/taking off footwear 88-Not attempted due to medical condition or safety concerns - Mobility A. Roll left and right 03-Partial/moderate assistance B. Sit to lying 03-Partial/moderate assistance C. Lying to sitting on side of bed 03-Partial/moderate assistance D. Sit to stand 03-Partial/moderate assistance E. Chair/mfw-[id number] transfer 03-Partial/moderate assistance F. Toilet transfer 03-Partial/moderate assistance G. Car transfer 88-Not attempted due to medical condition or safety concerns I. Walk 10 feet 03-Partial/moderate assistance J. Walk 50 feet with two turns 88-Not attempted due to medical condition or safety concerns K. Walk 150 feet 88-Not attempted due to medical condition or safety concerns L. Walking 10 feet on uneven surfaces 88-Not attempted due to medical condition or safety concerns M. 1 step (curb) 88-Not attempted due to medical condition or safety concerns N. 4 steps 88-Not attempted due to medical condition or safety concerns O. 12 steps 88-Not attempted due to medical condition or safety concerns P. Picking up object 88-Not attempted due to medical condition or safety concerns R. Wheel 50 feet with two turns 88-Not attempted due to medical condition or safety concerns S. Wheel 150 feet 88-Not attempted due to medical condition or safety concerns - Bladder and Bowel Bladder continence Bowel continence - Endurance Fair - Balance Fair - Safety Awareness Fair CURRENT FUNC. DEFICITS: Self-Care, Mobility, Endurance, Balance, and Safety Awareness SIGNATURE PANEL: (WOOD AND HARDWARE OUTFITTER)
[2021-09-30] MEDS: MELATONIN 3 MG TABLET PO PRN (19:51)
[2021-09-30] MEDS: DOCUSATE NA/SENNA CONC 1 TAB PO PRN (19:52)
[2021-09-30] MEDS: ATORVASTATIN 80 MG TAB PO SCH (19:53)
[2021-09-30 22:08] LABS: Prealbumin 20.8 mg/dL (20-40)
[2021-10-01] MEDS: ENOXAPARIN 40 MG/0.4 ML SQ SCH (06:59)
[2021-10-01] MEDS: TRAMADOL HCL 50 MG TAB PO PRN ×2 (07:56→11:57)
[2021-10-01] MEDS: DICLOFENAC SOD D.R. 75 MG TAB PO SCH ×2 (07:57→20:13)
[2021-10-01] MEDS: MAGNESIUM OXIDE 400 MG TAB PO SCH ×2 (07:58→20:13)
[2021-10-01] MEDS: GABAPENTIN 300 MG CAP PO SCH ×2 (07:58→20:11)
[2021-10-01] MEDS: CRANBERRY FRUIT EXTRACT 400 MG CAP PO SCH ×2 (07:58→20:13)
[2021-10-01] MEDS: ASPIRIN 81 MG CHEWABLE TABLET PO SCH (07:59)
[2021-10-01] MEDS: lisinopriL 5 MG TAB PO SCH ×2 (08:01→20:12)
[2021-10-01] MEDS: THIAMINE HCL 100 MG TABLET PO SCH (08:01)
[2021-10-01] MEDS: CLOPIDOGREL 75 MG TABLET PO SCH (08:01)
[2021-10-01] MEDS: FAMOTIDINE 20 MG TAB PO SCH ×2 (08:02→20:13)
--- NOTE | 2021-10-01 09:44 | P.RH.PN ---
Estimated Length of Stay: 20 Expected Discharge Date: 10/07/21 Discharge Disposition Plan: Home Family Support: Yes Nursing Home Goal: Mobility, Transfers, Self Care Vital Signs: Last Vital Signs Temp 97.4 F 10/01/21 08:00 Pulse 54 10/01/21 08:01 Resp 16 10/01/21 08:56 BP 128/69 10/01/21 08:01 Pulse Ox 95 10/01/21 08:56 Laboratory: Laboratory Last Values WBC 12.30 K/uL (4.3-10.9) H 09/30/21 08:26 RBC 5.28 M/uL (4.33-5.43) 09/30/21 08:26 Hgb 16.5 g/dL (13.6-17.9) 09/30/21 08:26 Hct 49.9 % (39.6-49.0) H 09/30/21 08:26 MCV 94.5 fL (80-100) 09/30/21 08:26 MCH 31.2 pg (27.0-35.0) 09/30/21 08:26 MCHC 33.0 g/dL (32.0-36.0) 09/30/21 08:26 RDW 12.7 % (12.1-15.2) 09/30/21 08:26 Plt Count 399 K/uL (152-406) D 09/30/21 08:26 MPV 8.3 fL (7.6-11.3) 09/30/21 08:26 Neutrophils % 63.9 % (41.7-73.7) 09/30/21 08:26 Lymphocytes % 20.4 % (15.3-44.8) 09/30/21 08:26 Monocytes % 8.6 % (3.3-12.3) 09/30/21 08:26 Eosinophils % 6.2 % (0-4.4) H 09/30/21 08:26 Basophils % 0.9 % (0-1.3) 09/30/21 08:26 Absolute Neutrophils 7.9 K/uL (1.8-8.0) 09/30/21 08:26 Absolute Lymphocytes 2.5 K/uL (0.7-4.9) 09/30/21 08:26 Absolute Monocytes 1.1 K/uL (0.1-1.3) 09/30/21 08:26 Absolute Eosinophils 0.8 K/uL (0-0.5) H 09/30/21 08:26 Absolute Basophils 0.1 K/uL (0-0.5) 09/30/21 08:26 Sodium 139 mmol/L (136-145) 09/30/21 08:26 Potassium 4.2 mmol/L (3.5-5.1) 09/30/21 08:26 Chloride 101 mmol/L (98-107) 09/30/21 08:26 Carbon Dioxide 32 mmol/L (21-32) 09/30/21 08:26 BUN 18 mg/dL (7-18) 09/30/21 08:26 Creatinine 0.77 mg/dL (0.55-1.3) 09/30/21 08:26 Estimated GFR > 90 mL/min (=/>90) 09/30/21 08:26 Glucose 125 mg/dL (74-106) H 09/30/21 08:26 Uric Acid 3.5 mg/dL (3.5-7.2) 09/25/21 14:27 Calcium 9.0 mg/dL (8.5-10.1) 09/30/21 08:26 Magnesium 2.1 mg/dL (1.8-2.4) 09/30/21 08:26 Albumin 2.9 g/dL (3.4-5.0) L 09/30/21 08:26 Prealbumin 20.8 mg/dL (20-40) 09/30/21 08:26 Urine Color Yellow (Yellow) 09/18/21 18:55 Urine Appearance Clear (Clear) 09/18/21 18:55 Urine pH 6.0 (5.0-7.0) 09/18/21 18:55 Ur Specific [place] 1.020 (1.005-1.030) 09/18/21 18:55 Glucose (UA)(Auto) Negative (Negative) 09/18/21 18:55 Urine Ketones Negative (Negative) 09/18/21 18:55 Urine Blood 2+ (Negative) H 09/18/21 18:55 Urine Nitrite Negative (Negative) 09/18/21 18:55 Urine Bilirubin Negative (Negative) 09/18/21 18:55 Urine Urobilinogen 0.2 mg/dL (0.2-1.0) 09/18/21 18:55 Ur Leukocyte Esterase Negative (Negative) 09/18/21 18:55 Urine RBC 10-20 /HPF (NONE SEEN) H 09/18/21 18:55 Urine WBC <5 /HPF (<5) 09/18/21 18:55 Ur Squamous Epith Cells <5 /HPF (NONE SEEN) 09/18/21 18:55 Urine Bacteria 20-50 /HPF (NONE SEEN) H 09/18/21 18:55 Urine Mucus 1+ /HPF (NONE SEEN) 09/18/21 18:55 Urine Culture Reflexed Not needed 09/18/21 18:55 Urine Total Protein Negative (Negative) 09/18/21 18:55 SARS-CoV-2 Rap RNA(RT-PCR) Negative (NEGATIVE) 09/22/21 07:17 Weight: 194 lb Wound Present: No Closed Surgical Incision Present: No Negative Pressure Wound Therapy Present: No Physician Update: His labs were reviewed and have improved well. He is making very good progress overall with therapy. His articulation is better with some difficulty moving the tongue and left side of his lips. Ambulating 250' with a walker, transfers and stairs are standby assistance. He is doing much better at En with ADLs, contact guard assistance with bathing. Mod assistance with footwear. He is at contact guard for toileting and showering. He will be home with his brother and grab bars and other adaptive equipment. Comment: no skin breakdown. Functional Improvement: Patient is experiencing severe arthritic pain, joint swelling, and muscle weakness of unknown origin at this time. Patient initially demonstrated increased gait distance, w/ less assistance needed, however has been severely limited in progress due to current ailment. Summary: Patient's care plan and group home goals have been reviewed and revised as necessary. Please see the Rehabilitation Signature page for all necessary signatures.
[2021-10-01] MEDS: ATORVASTATIN 80 MG TAB PO SCH (20:11)
[2021-10-01] MEDS: MELATONIN 3 MG TABLET PO PRN (20:14)
[2021-10-02] MEDS: TRAMADOL HCL 50 MG TAB PO PRN ×3 (06:42→15:53)
[2021-10-02] MEDS: ENOXAPARIN 40 MG/0.4 ML SQ SCH (06:42)
[2021-10-02] MEDS: THIAMINE HCL 100 MG TABLET PO SCH (08:02)
[2021-10-02] MEDS: MAGNESIUM OXIDE 400 MG TAB PO SCH ×2 (08:02→20:29)
[2021-10-02] MEDS: ASPIRIN 81 MG CHEWABLE TABLET PO SCH (08:02)
[2021-10-02] MEDS: GABAPENTIN 300 MG CAP PO SCH ×2 (08:02→20:28)
[2021-10-02] MEDS: FAMOTIDINE 20 MG TAB PO SCH ×2 (08:02→20:28)
[2021-10-02] MEDS: CRANBERRY FRUIT EXTRACT 400 MG CAP PO SCH ×2 (08:02→20:28)
[2021-10-02] MEDS: DICLOFENAC SOD D.R. 75 MG TAB PO SCH ×2 (08:02→20:28)
[2021-10-02] MEDS: CLOPIDOGREL 75 MG TABLET PO SCH (08:02)
[2021-10-02] MEDS: lisinopriL 5 MG TAB PO SCH ×2 (08:03→20:28)
[2021-10-02] MEDS: ATORVASTATIN 80 MG TAB PO SCH (20:28)
[2021-10-02] MEDS: MELATONIN 3 MG TABLET PO PRN (20:30)
[2021-10-03] MEDS: TRAMADOL HCL 50 MG TAB PO PRN ×4 (05:01→17:00)
[2021-10-03] MEDS: ENOXAPARIN 40 MG/0.4 ML SQ SCH (07:07)
[2021-10-03] MEDS: MAGNESIUM OXIDE 400 MG TAB PO SCH ×2 (08:03→20:04)
[2021-10-03] MEDS: lisinopriL 5 MG TAB PO SCH ×2 (08:07→20:04)
[2021-10-03] MEDS: CRANBERRY FRUIT EXTRACT 400 MG CAP PO SCH ×2 (08:08→20:04)
[2021-10-03] MEDS: THIAMINE HCL 100 MG TABLET PO SCH (08:08)
[2021-10-03] MEDS: GABAPENTIN 300 MG CAP PO SCH ×2 (08:08→20:04)
[2021-10-03] MEDS: CLOPIDOGREL 75 MG TABLET PO SCH (08:08)
[2021-10-03] MEDS: ASPIRIN 81 MG CHEWABLE TABLET PO SCH (08:08)
[2021-10-03] MEDS: FAMOTIDINE 20 MG TAB PO SCH ×2 (08:10→20:04)
[2021-10-03] MEDS: DICLOFENAC SOD D.R. 75 MG TAB PO SCH ×2 (08:11→20:05)
--- NOTE | 2021-10-03 18:19 | R.PN ---
PROGRESS NOTES ENCOUNTER DATE AND TIME: 10/03/2021 18:15 (PINION POLISHER) NAME MICHEAL LIN DATE OF : 1955 DATE OF ADMISSION: 09/18/2021 17:17 (PINION POLISHER) STROKECHIEF COMPLAINT: Left hemispheric stroke with right sided arm and leg weakness and numbness. Left brain affected right body, speech and swallowing SUBJECTIVE: Pt denied any depression. Pt denied any Shortness of Breath. Ambulated 500' with standby assistance using a rolling walker. Noncontrast head CT scan show acute to subacute left pontine infarct. WBC 12.3, Hgb 16.5, prealbumin 20.8, glucose 125. VITAL SIGNS Temperature: 97.4 F SBP/DBP: 138/72 Pulse: 50 Resp: 15 MEDICATION ALLERGIES: No Known Drug Allergies (NKDA) ENVIRONMENTAL ALLERGIES: - Substance Allergies None Known - Other Allergies None Known NURSING: - Shower allowing shower - Bladder care per protocol - Skin care per protocol PRECAUTIONS: - Weight Bearing Precaution WBAT right LE ACTIVITIES OOB only with supervision THERAPIES: - Dietary and Nutrition Adequate Nutrition. Nutritional Education. Nutritional Supplements. - Occupational Therapy Cognitive Retraining. Evaluate and Treat. ADL Training. Transfer Training. Adaptive Equipment. UE Str engthening. - Speech Therapy Cognitive Training. Expressive Language Skills. Memory Strategies. Receptive Language Skills. Speech Intelligibility Training. - Physical Therapy Gait Training. Balance Training. Evaluate and Treat. Transfer Training. Mobility Training. Safety Jaky reness. LE Strengthening. PHYSICAL EXAM - Gen Alert and awake Lying in bed No apparent distress Oriented to: person, time, and place - Skin No skin breakdown. No abnormalities - Eyes No abnormalities - ENMT No abnormalities - Neck No abnormalities - CVS RRR - Chest No abnormalities - Resp Clear to auscultation - Abd Soft - GI nondistended Deferred - No abnormalities - Ext Mild right upper and lower extremity edema. - MSK 2/5 weakness in right upper and 3/5 weakness in right lower extremity. - Neuro 2/5 weakness in right upper and 3/5 weakness in right lower extremity. Decreased sensation on right v ersus left upper and lower extremity. ASSESSMENT: Pt. is a 66 yo Right-handed male.On 09/15/2021 Pt. presented to [facility] with sudden onset of r ight-side weakness.On 09/15/2021 he was admitted to [facility] with diagnosis STROKE.His impairme nt category is Stroke 01 - Right Body (Left Brain) (01.2).Pre-morbidly, Pt. was independent/mod-I in Locomotion, Social Cognition, Balance, Transfers Control, and Safety Awareness; and he had good Sphi ncter Control, Self-Care, and Communication.Currently, he has deficits of Locomotion, Safety Awarenes s, Social Cognition, Balance, Transfers Control, Sphincter Control, Self-Care, Endurance, and Communi cation.Pt. is now referred to [facility] for acute in-patient rehabilitation i n order to maximize patient's functional independence in activities of daily living, strength, ROM, a nd mobility.- Rehab Goal Patient has realistic goal of being discharged at assistance level 7-Ind to reside at Home with Pt s elf. MDM/PLAN: - Physical Therapy Gait dysfunction - to improve, our physical therapists will perform initial evaluation of pt's statu s upon admission and devise an individualized program for Gait Training, and Wheel Chair mobility Inability to transfer - to improve, our physical therapists will perform initial evaluation of pt's status upon admission and devise an individualized program for Bed mobility Need for home safety evaluation - to improve, our physical therapists will perform initial evaluatio n of pt's status upon admission and devise an individualized program for Home Evaluation Need in caregiver upon discharge - to improve, our physical therapists will perform initial evaluati on of pt's status upon admission and devise an individualized program for Caregiver Training New precaution - to improve, our physical therapists will perform initial evaluation of pt's status upon admission and devise an individualized program for Patient precaution education Edema - to improve, our physical therapists will perform initial evaluation of pt's status upon admi ssion and devise an individualized program for Elevation Training, and Lymphedema Therapy Poor balance - to improve, our physical therapists will perform initial evaluation of pt's status up on admission and devise an individualized program for Balance Training Poor endurance - to improve, our physical therapists will perform initial evaluation of pt's status upon admission and devise an individualized program for Endurance Training Weakness - to improve, our physical therapists will perform initial evaluation of pt's status upon a dmission and devise an individualized program for Aquatic Therapy, Neuromuscular Reeducation, and Str engthening Achieving independence - to improve, our physical therapists will perform initial evaluation of pt's status upon admission and devise an individualized program for Community Reintegration Activities - Occupational Therapy ADL deficits - to improve, our occupation therapists will perform initial evaluation of pt's status upon admission and devise an individualized program for Bathing, Bed mobility, Community Reintegratio n, Cooking, Dressing, Eating, Fine Motor Skills, Grooming, Homemaking, Kitchen Mobility, Laundry, Pat ient Education, Safety Awareness, Splinting - Positioning, Transfers(Toilet, Tub, Shower), and Wheel Chair Management Cognitive deficits - to improve, our occupation therapists will perform initial evaluation of pt's s tatus upon admission and devise an individualized program for Cognition - orientation Need for customer care team coach - to improve, our occupation therapists will perform initial evaluation of pt's status upon admission and devise an individualized program for Caregiver Training Weakness - to improve, our occupation therapists will perform initial evaluation of pt's status upon admission and devise an individualized program for Aquatic Therapy, Balance, Endurance, UE ROM, and UE strengthening - Other See attached MAR (Medication Administration Record) - Diet Type Continue Regular - Diet - Liquid Texture Continue Regular - Tube Feed Continue N/A - Bladder care per protocol - Weight Bearing Precaution WBAT right LE - Skin care per protocol - Diet - Solid Texture Continue Regular - Shower allowing shower for Dementia, TBI, Stroke, or others FUNCTIONAL STATUS: UPDATED AT WEEKLY TEAM CONFERENCE - Bladder Same accident frequency: 7-Ind - No accidents in the past 7 days - Bowel Same accident frequency: 7-Ind - No accidents in the past 7 days - Walking Same score based on distance walked: 0(N/A) Same score based on distance walked: 1(<=50ft) - Wheelchair Same score based on distance traveled: 0(N/A) FUNCTIONAL STATUS: - Self-Care A. Eating sup B. Grooming Ind C. Bathing maxA D. Dressing - Upper Tylor E. Dressing - Lower modA F. Toileting modA - Sphincter Control G. Bladder control En H. Bowel control En - Transfers Control I. Bed/Chair/Wheelchair modA J. Toilet Tylor K. Tub/Shower maxA - Locomotion L. Walk/Wheelchair (B) modA M. Stairs Dep - Communication N. Comprehension (B) En O. Expression (B) Tylor - Social Cognition P. Social Interaction Ind Q. Problem Solving sup R. Memory Tylor - Endurance Fair - Balance Poor - Safety Awareness Fair QI SCORES: - Self-Care A. Eating 03-Partial/moderate assistance B. Oral hygiene 03-Partial/moderate assistance C. Toileting hygiene 03-Partial/moderate assistance E. Shower/bathe self 02-Substantial/maximal assistance F. Upper body dressing 03-Partial/moderate assistance G. Lower body dressing 02-Substantial/maximal assistance H. Putting on/taking off footwear 88-Not attempted due to medical condition or safety concerns - Mobility A. Roll left and right 03-Partial/moderate assistance B. Sit to lying 03-Partial/moderate assistance C. Lying to sitting on side of bed 03-Partial/moderate assistance D. Sit to stand 03-Partial/moderate assistance E. Chair/[id number] transfer 03-Partial/moderate assistance F. Toilet transfer 03-Partial/moderate assistance G. Car transfer 88-Not attempted due to medical condition or safety concerns I. Walk 10 feet 03-Partial/moderate assistance J. Walk 50 feet with two turns 88-Not attempted due to medical condition or safety concerns K. Walk 150 feet 88-Not attempted due to medical condition or safety concerns L. Walking 10 feet on uneven surfaces 88-Not attempted due to medical condition or safety concerns M. 1 step (curb) 88-Not attempted due to medical condition or safety concerns N. 4 steps 88-Not attempted due to medical condition or safety concerns O. 12 steps 88-Not attempted due to medical condition or safety concerns P. Picking up object 88-Not attempted due to medical condition or safety concerns R. Wheel 50 feet with two turns 88-Not attempted due to medical condition or safety concerns S. Wheel 150 feet 88-Not attempted due to medical condition or safety concerns - Bladder and Bowel Bladder continence Bowel continence - Endurance Fair - Balance Fair - Safety Awareness Fair CURRENT FUNC. DEFICITS: Self-Care, Mobility, Endurance, Balance, and Safety Awareness SIGNATURE PANEL: (PINION POLISHER)
[2021-10-03] MEDS: DOCUSATE NA/SENNA CONC 1 TAB PO PRN (20:04)
[2021-10-03] MEDS: ATORVASTATIN 80 MG TAB PO SCH (20:04)
[2021-10-03] MEDS: MELATONIN 3 MG TABLET PO PRN (20:05)
[2021-10-04] MEDS: TRAMADOL HCL 50 MG TAB PO PRN ×4 (03:15→20:03)
[2021-10-04 05:45] VITALS: BMI 25.8
[2021-10-04] MEDS: ASPIRIN 81 MG CHEWABLE TABLET PO SCH (08:08)
[2021-10-04] MEDS: DICLOFENAC SOD D.R. 75 MG TAB PO SCH ×2 (08:08→20:05)
[2021-10-04] MEDS: MAGNESIUM OXIDE 400 MG TAB PO SCH ×2 (08:09→20:00)
[2021-10-04] MEDS: ENOXAPARIN 40 MG/0.4 ML SQ SCH (08:09)
[2021-10-04] MEDS: GABAPENTIN 300 MG CAP PO SCH ×2 (08:09→20:06)
[2021-10-04] MEDS: CLOPIDOGREL 75 MG TABLET PO SCH (08:09)
[2021-10-04] MEDS: THIAMINE HCL 100 MG TABLET PO SCH (08:09)
[2021-10-04] MEDS: lisinopriL 5 MG TAB PO SCH ×2 (08:10→20:05)
[2021-10-04] MEDS: CRANBERRY FRUIT EXTRACT 400 MG CAP PO SCH ×2 (08:10→20:05)
[2021-10-04] MEDS: FAMOTIDINE 20 MG TAB PO SCH ×2 (08:11→20:05)
[2021-10-04] MEDS: ATORVASTATIN 80 MG TAB PO SCH (20:04)
[2021-10-04] MEDS: MELATONIN 3 MG TABLET PO PRN (20:04)
[2021-10-05] MEDS: DICLOFENAC SOD D.R. 75 MG TAB PO SCH ×2 (08:24→19:40)
[2021-10-05] MEDS: GABAPENTIN 300 MG CAP PO SCH ×2 (08:25→19:39)
[2021-10-05] MEDS: ENOXAPARIN 40 MG/0.4 ML SQ SCH (08:25)
[2021-10-05] MEDS: MAGNESIUM OXIDE 400 MG TAB PO SCH ×2 (08:26→19:40)
[2021-10-05] MEDS: lisinopriL 5 MG TAB PO SCH ×2 (08:26→19:39)
[2021-10-05] MEDS: ASPIRIN 81 MG CHEWABLE TABLET PO SCH (08:26)
[2021-10-05] MEDS: THIAMINE HCL 100 MG TABLET PO SCH (08:26)
[2021-10-05] MEDS: FAMOTIDINE 20 MG TAB PO SCH ×2 (08:26→19:39)
[2021-10-05] MEDS: CRANBERRY FRUIT EXTRACT 400 MG CAP PO SCH ×2 (08:26→19:39)
[2021-10-05] MEDS: CLOPIDOGREL 75 MG TABLET PO SCH (08:27)
[2021-10-05] MEDS: TRAMADOL HCL 50 MG TAB PO PRN (09:55)
[2021-10-05] MEDS: ATORVASTATIN 80 MG TAB PO SCH (19:38)
[2021-10-05] MEDS: DOCUSATE NA/SENNA CONC 1 TAB PO PRN (19:38)
[2021-10-05] MEDS: MELATONIN 3 MG TABLET PO PRN (19:40)
[2021-10-06] MEDS: TRAMADOL HCL 50 MG TAB PO PRN ×3 (04:53→16:45)
[2021-10-06] MEDS: ENOXAPARIN 40 MG/0.4 ML SQ SCH (07:03)
[2021-10-06] MEDS: THIAMINE HCL 100 MG TABLET PO SCH (08:05)
[2021-10-06] MEDS: DICLOFENAC SOD D.R. 75 MG TAB PO SCH ×2 (08:05→19:59)
[2021-10-06] MEDS: lisinopriL 5 MG TAB PO SCH ×2 (08:06→20:00)
[2021-10-06] MEDS: GABAPENTIN 300 MG CAP PO SCH ×2 (08:06→20:01)
[2021-10-06] MEDS: CRANBERRY FRUIT EXTRACT 400 MG CAP PO SCH ×2 (08:06→20:00)
[2021-10-06] MEDS: MAGNESIUM OXIDE 400 MG TAB PO SCH ×2 (08:06→20:00)
[2021-10-06] MEDS: FAMOTIDINE 20 MG TAB PO SCH ×2 (08:06→20:00)
[2021-10-06] MEDS: ASPIRIN 81 MG CHEWABLE TABLET PO SCH (08:06)
[2021-10-06] MEDS: CLOPIDOGREL 75 MG TABLET PO SCH (08:06)
[2021-10-06] MEDS ORDERED: FORMULATION-R RECTAL 57GM PR PRN (08:36)
--- NOTE | 2021-10-06 17:17 | R.PN ---
PROGRESS NOTES ENCOUNTER DATE AND TIME: 10/06/2021 17:14 (MOLDING PLASTERER) NAME MICHEAL LIN DATE OF : 1955 DATE OF ADMISSION: 09/18/2021 17:17 (MOLDING PLASTERER) STROKECHIEF COMPLAINT: Left hemispheric stroke with right sided arm and leg weakness and numbness. Left brain affected right body, speech and swallowing SUBJECTIVE: Pt denied any depression. Pt denied any Shortness of Breath. Ambulated 540' with supervision using a rolling walker. Up and down 12 steps with contact guard geri tance. Self-propelled wheelchair 250' with modified independence. Noncontrast head CT scan show acute to subacute left pontine infarct. WBC 12.3, Hgb 16.5, prealbumin 20.8, glucose 125. VITAL SIGNS Temperature: 97.6 F SBP/DBP: 140/74 Pulse: 50 Resp: 16 MEDICATION ALLERGIES: No Known Drug Allergies (NKDA) ENVIRONMENTAL ALLERGIES: - Substance Allergies None Known - Other Allergies None Known NURSING: - Shower allowing shower - Bladder care per protocol - Skin care per protocol PRECAUTIONS: - Weight Bearing Precaution WBAT right LE ACTIVITIES OOB only with supervision THERAPIES: - Dietary and Nutrition Adequate Nutrition. Nutritional Education. Nutritional Supplements. - Occupational Therapy Cognitive Retraining. Evaluate and Treat. ADL Training. Transfer Training. Adaptive Equipment. UE Str engthening. - Speech Therapy Cognitive Training. Expressive Language Skills. Memory Strategies. Receptive Language Skills. Speech Intelligibility Training. - Physical Therapy Gait Training. Balance Training. Evaluate and Treat. Transfer Training. Mobility Training. Safety Jaky reness. LE Strengthening. PHYSICAL EXAM - Gen Alert and awake Lying in bed No apparent distress Oriented to: person, time, and place - Skin No skin breakdown. No abnormalities - Eyes No abnormalities - ENMT No abnormalities - Neck No abnormalities - CVS RRR - Chest No abnormalities - Resp Clear to auscultation - Abd Soft - GI nondistended Deferred - No abnormalities - Ext Mild right upper and lower extremity edema. - MSK 2/5 weakness in right upper and 3/5 weakness in right lower extremity. - Neuro 2/5 weakness in right upper and 3/5 weakness in right lower extremity. Decreased sensation on right v ersus left upper and lower extremity. ASSESSMENT: Pt. is a 66 yo Right-handed male.On 09/15/2021 Pt. presented to [facility] with sudden onset of r ight-side weakness.On 09/15/2021 he was admitted to [facility] with diagnosis STROKE.His impairme nt category is Stroke 01 - Right Body (Left Brain) (01.2).Pre-morbidly, Pt. was independent/mod-I in Locomotion, Social Cognition, Balance, Transfers Control, and Safety Awareness; and he had good Sphi ncter Control, Self-Care, and Communication.Currently, he has deficits of Locomotion, Safety Awarenes s, Social Cognition, Balance, Transfers Control, Sphincter Control, Self-Care, Endurance, and Communi cation.Pt. is now referred to [facility] for acute in-patient rehabilitation i n order to maximize patient's functional independence in activities of daily living, strength, ROM, a nd mobility.- Rehab Goal Patient has realistic goal of being discharged at assistance level 7-Ind to reside at Home with Pt s elf. MDM/PLAN: - Physical Therapy Gait dysfunction - to improve, our physical therapists will perform initial evaluation of pt's statu s upon admission and devise an individualized program for Gait Training, and Wheel Chair mobility Inability to transfer - to improve, our physical therapists will perform initial evaluation of pt's status upon admission and devise an individualized program for Bed mobility Need for home safety evaluation - to improve, our physical therapists will perform initial evaluatio n of pt's status upon admission and devise an individualized program for Home Evaluation Need in caregiver upon discharge - to improve, our physical therapists will perform initial evaluati on of pt's status upon admission and devise an individualized program for Caregiver Training New precaution - to improve, our physical therapists will perform initial evaluation of pt's status upon admission and devise an individualized program for Patient precaution education Edema - to improve, our physical therapists will perform initial evaluation of pt's status upon admi ssion and devise an individualized program for Elevation Training, and Lymphedema Therapy Poor balance - to improve, our physical therapists will perform initial evaluation of pt's status up on admission and devise an individualized program for Balance Training Poor endurance - to improve, our physical therapists will perform initial evaluation of pt's status upon admission and devise an individualized program for Endurance Training Weakness - to improve, our physical therapists will perform initial evaluation of pt's status upon a dmission and devise an individualized program for Aquatic Therapy, Neuromuscular Reeducation, and Str engthening Achieving independence - to improve, our physical therapists will perform initial evaluation of pt's status upon admission and devise an individualized program for Community Reintegration Activities - Occupational Therapy ADL deficits - to improve, our occupation therapists will perform initial evaluation of pt's status upon admission and devise an individualized program for Bathing, Bed mobility, Community Reintegratio n, Cooking, Dressing, Eating, Fine Motor Skills, Grooming, Homemaking, Kitchen Mobility, Laundry, Pat ient Education, Safety Awareness, Splinting - Positioning, Transfers(Toilet, Tub, Shower), and Wheel Chair Management Cognitive deficits - to improve, our occupation therapists will perform initial evaluation of pt's s tatus upon admission and devise an individualized program for Cognition - orientation Need for career and technology education teacher - to improve, our occupation therapists will perform initial evaluation of pt's status upon admission and devise an individualized program for Caregiver Training Weakness - to improve, our occupation therapists will perform initial evaluation of pt's status upon admission and devise an individualized program for Aquatic Therapy, Balance, Endurance, UE ROM, and UE strengthening - Other See attached MAR (Medication Administration Record) - Diet Type Continue Regular - Diet - Liquid Texture Continue Regular - Tube Feed Continue N/A - Bladder care per protocol - Weight Bearing Precaution WBAT right LE - Skin care per protocol - Diet - Solid Texture Continue Regular - Shower allowing shower for Dementia, TBI, Stroke, or others FUNCTIONAL STATUS: UPDATED AT WEEKLY TEAM CONFERENCE - Bladder Same accident frequency: 7-Ind - No accidents in the past 7 days - Bowel Same accident frequency: 7-Ind - No accidents in the past 7 days - Walking Same score based on distance walked: 0(N/A) Same score based on distance walked: 1(<=50ft) - Wheelchair Same score based on distance traveled: 0(N/A) FUNCTIONAL STATUS: - Self-Care A. Eating sup B. Grooming Ind C. Bathing maxA D. Dressing - Upper Tylor E. Dressing - Lower modA F. Toileting modA - Sphincter Control G. Bladder control En H. Bowel control En - Transfers Control I. Bed/Chair/Wheelchair modA J. Toilet Tylor K. Tub/Shower maxA - Locomotion L. Walk/Wheelchair (B) modA M. Stairs Dep - Communication N. Comprehension (B) En O. Expression (B) Tylor - Social Cognition P. Social Interaction Ind Q. Problem Solving sup R. Memory Tylor - Endurance Fair - Balance Poor - Safety Awareness Fair QI SCORES: - Self-Care A. Eating 03-Partial/moderate assistance B. Oral hygiene 03-Partial/moderate assistance C. Toileting hygiene 03-Partial/moderate assistance E. Shower/bathe self 02-Substantial/maximal assistance F. Upper body dressing 03-Partial/moderate assistance G. Lower body dressing 02-Substantial/maximal assistance H. Putting on/taking off footwear 88-Not attempted due to medical condition or safety concerns - Mobility A. Roll left and right 03-Partial/moderate assistance B. Sit to lying 03-Partial/moderate assistance C. Lying to sitting on side of bed 03-Partial/moderate assistance D. Sit to stand 03-Partial/moderate assistance E. Chair/[id number] transfer 03-Partial/moderate assistance F. Toilet transfer 03-Partial/moderate assistance G. Car transfer 88-Not attempted due to medical condition or safety concerns I. Walk 10 feet 03-Partial/moderate assistance J. Walk 50 feet with two turns 88-Not attempted due to medical condition or safety concerns K. Walk 150 feet 88-Not attempted due to medical condition or safety concerns L. Walking 10 feet on uneven surfaces 88-Not attempted due to medical condition or safety concerns M. 1 step (curb) 88-Not attempted due to medical condition or safety concerns N. 4 steps 88-Not attempted due to medical condition or safety concerns O. 12 steps 88-Not attempted due to medical condition or safety concerns P. Picking up object 88-Not attempted due to medical condition or safety concerns R. Wheel 50 feet with two turns 88-Not attempted due to medical condition or safety concerns S. Wheel 150 feet 88-Not attempted due to medical condition or safety concerns - Bladder and Bowel Bladder continence Bowel continence - Endurance Fair - Balance Fair - Safety Awareness Fair CURRENT FUNC. DEFICITS: Self-Care, Mobility, Endurance, Balance, and Safety Awareness SIGNATURE PANEL: (MOLDING PLASTERER)
[2021-10-06] MEDS: ATORVASTATIN 80 MG TAB PO SCH (19:59)
[2021-10-06] MEDS: MELATONIN 3 MG TABLET PO PRN (20:00)
[2021-10-07] MEDS: TRAMADOL HCL 50 MG TAB PO PRN ×2 (02:49→08:53)
[2021-10-07] MEDS: ENOXAPARIN 40 MG/0.4 ML SQ SCH (08:52)
[2021-10-07] MEDS: CRANBERRY FRUIT EXTRACT 400 MG CAP PO SCH ×2 (08:55→20:05)
[2021-10-07] MEDS: lisinopriL 5 MG TAB PO SCH ×2 (08:55→20:06)
[2021-10-07] MEDS: GABAPENTIN 300 MG CAP PO SCH ×2 (08:55→20:07)
[2021-10-07] MEDS: MAGNESIUM OXIDE 400 MG TAB PO SCH ×2 (08:57→20:03)
[2021-10-07] MEDS: THIAMINE HCL 100 MG TABLET PO SCH (08:57)
[2021-10-07] MEDS: FAMOTIDINE 20 MG TAB PO SCH ×2 (08:57→20:07)
[2021-10-07] MEDS: ASPIRIN 81 MG CHEWABLE TABLET PO SCH (08:57)
[2021-10-07] MEDS: CLOPIDOGREL 75 MG TABLET PO SCH (08:57)
[2021-10-07] MEDS: DICLOFENAC SOD D.R. 75 MG TAB PO SCH ×2 (08:58→20:06)
--- NOTE | 2021-10-07 17:24 | R.PN ---
PROGRESS NOTES ENCOUNTER DATE AND TIME: 10/07/2021 17:21 (RECORD PRESS TENDER) NAME MICHEAL LIN DATE OF : 1955 DATE OF ADMISSION: 09/18/2021 17:17 (RECORD PRESS TENDER) STROKECHIEF COMPLAINT: Left hemispheric stroke with right sided arm and leg weakness and numbness. Left brain affected right body, speech and swallowing SUBJECTIVE: Pt denied any depression. Pt denied any Shortness of Breath. Ambulated 690' with supervision using a rolling walker. Self-propelled wheelchair 250' with modified independence. Noncontrast head CT scan show acute to subacute left pontine infarct. WBC 12.3, Hgb 16.5, prealbumin 20.8, glucose 125. VITAL SIGNS Temperature: 97.8 F SBP/DBP: 129/63 Pulse: 56 Resp: 15 MEDICATION ALLERGIES: No Known Drug Allergies (NKDA) ENVIRONMENTAL ALLERGIES: - Substance Allergies None Known - Other Allergies None Known NURSING: - Shower allowing shower - Bladder care per protocol - Skin care per protocol PRECAUTIONS: - Weight Bearing Precaution WBAT right LE ACTIVITIES OOB only with supervision THERAPIES: - Dietary and Nutrition Adequate Nutrition. Nutritional Education. Nutritional Supplements. - Occupational Therapy Cognitive Retraining. Evaluate and Treat. ADL Training. Transfer Training. Adaptive Equipment. UE Str engthening. - Speech Therapy Cognitive Training. Expressive Language Skills. Memory Strategies. Receptive Language Skills. Speech Intelligibility Training. - Physical Therapy Gait Training. Balance Training. Evaluate and Treat. Transfer Training. Mobility Training. Safety Jaky reness. LE Strengthening. PHYSICAL EXAM - Gen Alert and awake Lying in bed No apparent distress Oriented to: person, time, and place - Skin No skin breakdown. No abnormalities - Eyes No abnormalities - ENMT No abnormalities - Neck No abnormalities - CVS RRR - Chest No abnormalities - Resp Clear to auscultation - Abd Soft - GI nondistended Deferred - No abnormalities - Ext Mild right upper and lower extremity edema. - MSK 2/5 weakness in right upper and 3/5 weakness in right lower extremity. - Neuro 2/5 weakness in right upper and 3/5 weakness in right lower extremity. Decreased sensation on right v ersus left upper and lower extremity. ASSESSMENT: Pt. is a 66 yo Right-handed male.On 09/15/2021 Pt. presented to [facility] with sudden onset of r ight-side weakness.On 09/15/2021 he was admitted to [facility] with diagnosis STROKE.His impairme nt category is Stroke 01 - Right Body (Left Brain) (01.2).Pre-morbidly, Pt. was independent/mod-I in Locomotion, Social Cognition, Balance, Transfers Control, and Safety Awareness; and he had good Sphi ncter Control, Self-Care, and Communication.Currently, he has deficits of Locomotion, Safety Awarenes s, Social Cognition, Balance, Transfers Control, Sphincter Control, Self-Care, Endurance, and Communi cation.Pt. is now referred to [facility] for acute in-patient rehabilitation i n order to maximize patient's functional independence in activities of daily living, strength, ROM, a nd mobility.- Rehab Goal Patient has realistic goal of being discharged at assistance level 7-Ind to reside at Home with Pt s elf. MDM/PLAN: - Physical Therapy Gait dysfunction - to improve, our physical therapists will perform initial evaluation of pt's statu s upon admission and devise an individualized program for Gait Training, and Wheel Chair mobility Inability to transfer - to improve, our physical therapists will perform initial evaluation of pt's status upon admission and devise an individualized program for Bed mobility Need for home safety evaluation - to improve, our physical therapists will perform initial evaluatio n of pt's status upon admission and devise an individualized program for Home Evaluation Need in caregiver upon discharge - to improve, our physical therapists will perform initial evaluati on of pt's status upon admission and devise an individualized program for Caregiver Training New precaution - to improve, our physical therapists will perform initial evaluation of pt's status upon admission and devise an individualized program for Patient precaution education Edema - to improve, our physical therapists will perform initial evaluation of pt's status upon admi ssion and devise an individualized program for Elevation Training, and Lymphedema Therapy Poor balance - to improve, our physical therapists will perform initial evaluation of pt's status up on admission and devise an individualized program for Balance Training Poor endurance - to improve, our physical therapists will perform initial evaluation of pt's status upon admission and devise an individualized program for Endurance Training Weakness - to improve, our physical therapists will perform initial evaluation of pt's status upon a dmission and devise an individualized program for Aquatic Therapy, Neuromuscular Reeducation, and Str engthening Achieving independence - to improve, our physical therapists will perform initial evaluation of pt's status upon admission and devise an individualized program for Community Reintegration Activities - Occupational Therapy ADL deficits - to improve, our occupation therapists will perform initial evaluation of pt's status upon admission and devise an individualized program for Bathing, Bed mobility, Community Reintegratio n, Cooking, Dressing, Eating, Fine Motor Skills, Grooming, Homemaking, Kitchen Mobility, Laundry, Pat ient Education, Safety Awareness, Splinting - Positioning, Transfers(Toilet, Tub, Shower), and Wheel Chair Management Cognitive deficits - to improve, our occupation therapists will perform initial evaluation of pt's s tatus upon admission and devise an individualized program for Cognition - orientation Need for manager long term care - to improve, our occupation therapists will perform initial evaluation of pt's status upon admission and devise an individualized program for Caregiver Training Weakness - to improve, our occupation therapists will perform initial evaluation of pt's status upon admission and devise an individualized program for Aquatic Therapy, Balance, Endurance, UE ROM, and UE strengthening - Other See attached MAR (Medication Administration Record) - Diet Type Continue Regular - Diet - Liquid Texture Continue Regular - Tube Feed Continue N/A - Bladder care per protocol - Weight Bearing Precaution WBAT right LE - Skin care per protocol - Diet - Solid Texture Continue Regular - Shower allowing shower for Dementia, TBI, Stroke, or others FUNCTIONAL STATUS: UPDATED AT WEEKLY TEAM CONFERENCE - Bladder Same accident frequency: 7-Ind - No accidents in the past 7 days - Bowel Same accident frequency: 7-Ind - No accidents in the past 7 days - Walking Same score based on distance walked: 0(N/A) Same score based on distance walked: 1(<=50ft) - Wheelchair Same score based on distance traveled: 0(N/A) FUNCTIONAL STATUS: - Self-Care A. Eating sup B. Grooming Ind C. Bathing maxA D. Dressing - Upper Tylor E. Dressing - Lower modA F. Toileting modA - Sphincter Control G. Bladder control En H. Bowel control En - Transfers Control I. Bed/Chair/Wheelchair modA J. Toilet Tylor K. Tub/Shower maxA - Locomotion L. Walk/Wheelchair (B) modA M. Stairs Dep - Communication N. Comprehension (B) En O. Expression (B) Tylor - Social Cognition P. Social Interaction Ind Q. Problem Solving sup R. Memory Tylor - Endurance Fair - Balance Poor - Safety Awareness Fair QI SCORES: - Self-Care A. Eating 03-Partial/moderate assistance B. Oral hygiene 03-Partial/moderate assistance C. Toileting hygiene 03-Partial/moderate assistance E. Shower/bathe self 02-Substantial/maximal assistance F. Upper body dressing 03-Partial/moderate assistance G. Lower body dressing 02-Substantial/maximal assistance H. Putting on/taking off footwear 88-Not attempted due to medical condition or safety concerns - Mobility A. Roll left and right 03-Partial/moderate assistance B. Sit to lying 03-Partial/moderate assistance C. Lying to sitting on side of bed 03-Partial/moderate assistance D. Sit to stand 03-Partial/moderate assistance E. Chair/[id number] transfer 03-Partial/moderate assistance F. Toilet transfer 03-Partial/moderate assistance G. Car transfer 88-Not attempted due to medical condition or safety concerns I. Walk 10 feet 03-Partial/moderate assistance J. Walk 50 feet with two turns 88-Not attempted due to medical condition or safety concerns K. Walk 150 feet 88-Not attempted due to medical condition or safety concerns L. Walking 10 feet on uneven surfaces 88-Not attempted due to medical condition or safety concerns M. 1 step (curb) 88-Not attempted due to medical condition or safety concerns N. 4 steps 88-Not attempted due to medical condition or safety concerns O. 12 steps 88-Not attempted due to medical condition or safety concerns P. Picking up object 88-Not attempted due to medical condition or safety concerns R. Wheel 50 feet with two turns 88-Not attempted due to medical condition or safety concerns S. Wheel 150 feet 88-Not attempted due to medical condition or safety concerns - Bladder and Bowel Bladder continence Bowel continence - Endurance Fair - Balance Fair - Safety Awareness Fair CURRENT FUNC. DEFICITS: Self-Care, Mobility, Endurance, Balance, and Safety Awareness SIGNATURE PANEL: (RECORD PRESS TENDER)
[2021-10-07] MEDS: DOCUSATE NA/SENNA CONC 1 TAB PO PRN (20:06)
[2021-10-07] MEDS: ATORVASTATIN 80 MG TAB PO SCH (20:07)
[2021-10-07] MEDS: MELATONIN 3 MG TABLET PO PRN (20:07)
[2021-10-08] MEDS: ENOXAPARIN 40 MG/0.4 ML SQ SCH (07:04)
[2021-10-08] MEDS: TRAMADOL HCL 50 MG TAB PO PRN ×3 (08:03→15:46)
[2021-10-08] MEDS: GABAPENTIN 300 MG CAP PO SCH ×2 (08:04→19:55)
[2021-10-08] MEDS: FAMOTIDINE 20 MG TAB PO SCH ×2 (08:04→19:54)
[2021-10-08] MEDS: MAGNESIUM OXIDE 400 MG TAB PO SCH ×2 (08:04→19:57)
[2021-10-08] MEDS: THIAMINE HCL 100 MG TABLET PO SCH (08:04)
[2021-10-08] MEDS: ASPIRIN 81 MG CHEWABLE TABLET PO SCH (08:04)
[2021-10-08] MEDS: CLOPIDOGREL 75 MG TABLET PO SCH (08:04)
[2021-10-08] MEDS: DICLOFENAC SOD D.R. 75 MG TAB PO SCH ×2 (08:04→19:55)
[2021-10-08] MEDS: CRANBERRY FRUIT EXTRACT 400 MG CAP PO SCH ×2 (08:04→19:54)
[2021-10-08] MEDS: lisinopriL 5 MG TAB PO SCH ×2 (08:05→19:56)
--- NOTE | 2021-10-08 13:49 | R.PN ---
PROGRESS NOTES ENCOUNTER DATE AND TIME: 10/08/2021 13:46 (MINING SPECULATOR) NAME MICHEAL LIN DATE OF : 1955 DATE OF ADMISSION: 09/18/2021 17:17 (MINING SPECULATOR) STROKECHIEF COMPLAINT: Left hemispheric stroke with right sided arm and leg weakness and numbness. Left brain affected right body, speech and swallowing SUBJECTIVE: Pt denied any depression. Pt denied any Shortness of Breath. Ambulated 500' with supervision using a rolling walker. Self-propelled wheelchair 250' with modified independence. Noncontrast head CT scan show acute to subacute left pontine infarct. WBC 12.3, Hgb 16.5, prealbumin 20.8, glucose 125. He has no new complaints. He is making good overall progress with all therapy. VITAL SIGNS Temperature: 97.8 F SBP/DBP: 129/63 Pulse: 56 Resp: 15 MEDICATION ALLERGIES: No Known Drug Allergies (NKDA) ENVIRONMENTAL ALLERGIES: - Substance Allergies None Known - Other Allergies None Known NURSING: - Shower allowing shower - Bladder care per protocol - Skin care per protocol PRECAUTIONS: - Weight Bearing Precaution WBAT right LE ACTIVITIES OOB only with supervision THERAPIES: - Dietary and Nutrition Adequate Nutrition. Nutritional Education. Nutritional Supplements. - Occupational Therapy Cognitive Retraining. Evaluate and Treat. ADL Training. Transfer Training. Adaptive Equipment. UE Str engthening. - Speech Therapy Cognitive Training. Expressive Language Skills. Memory Strategies. Receptive Language Skills. Speech Intelligibility Training. - Physical Therapy Gait Training. Balance Training. Evaluate and Treat. Transfer Training. Mobility Training. Safety Jaky reness. LE Strengthening. PHYSICAL EXAM - Gen Alert and awake Lying in bed No apparent distress Oriented to: person, time, and place - Skin No skin breakdown. No abnormalities - Eyes No abnormalities - ENMT No abnormalities - Neck No abnormalities - CVS RRR - Chest No abnormalities - Resp Clear to auscultation - Abd Soft - GI nondistended Deferred - No abnormalities - Ext Mild right upper and lower extremity edema. - MSK 2/5 weakness in right upper and 3/5 weakness in right lower extremity. - Neuro 2/5 weakness in right upper and 3/5 weakness in right lower extremity. Decreased sensation on right v ersus left upper and lower extremity. ASSESSMENT: Pt. is a 66 yo Right-handed male.On 09/15/2021 Pt. presented to [facility] with sudden onset of r ight-side weakness.On 09/15/2021 he was admitted to [facility] with diagnosis STROKE.His impairme nt category is Stroke 01 - Right Body (Left Brain) (01.2).Pre-morbidly, Pt. was independent/mod-I in Locomotion, Social Cognition, Balance, Transfers Control, and Safety Awareness; and he had good Sphi ncter Control, Self-Care, and Communication.Currently, he has deficits of Locomotion, Safety Awarenes s, Social Cognition, Balance, Transfers Control, Sphincter Control, Self-Care, Endurance, and Communi cation.Pt. is now referred to [facility] for acute in-patient rehabilitation i n order to maximize patient's functional independence in activities of daily living, strength, ROM, a nd mobility.- Rehab Goal Patient has realistic goal of being discharged at assistance level 7-Ind to reside at Home with Pt s elf. MDM/PLAN: - Physical Therapy Gait dysfunction - to improve, our physical therapists will perform initial evaluation of pt's statu s upon admission and devise an individualized program for Gait Training, and Wheel Chair mobility Inability to transfer - to improve, our physical therapists will perform initial evaluation of pt's status upon admission and devise an individualized program for Bed mobility Need for home safety evaluation - to improve, our physical therapists will perform initial evaluatio n of pt's status upon admission and devise an individualized program for Home Evaluation Need in caregiver upon discharge - to improve, our physical therapists will perform initial evaluati on of pt's status upon admission and devise an individualized program for Caregiver Training New precaution - to improve, our physical therapists will perform initial evaluation of pt's status upon admission and devise an individualized program for Patient precaution education Edema - to improve, our physical therapists will perform initial evaluation of pt's status upon admi ssion and devise an individualized program for Elevation Training, and Lymphedema Therapy Poor balance - to improve, our physical therapists will perform initial evaluation of pt's status up on admission and devise an individualized program for Balance Training Poor endurance - to improve, our physical therapists will perform initial evaluation of pt's status upon admission and devise an individualized program for Endurance Training Weakness - to improve, our physical therapists will perform initial evaluation of pt's status upon a dmission and devise an individualized program for Aquatic Therapy, Neuromuscular Reeducation, and Str engthening Achieving independence - to improve, our physical therapists will perform initial evaluation of pt's status upon admission and devise an individualized program for Community Reintegration Activities - Occupational Therapy ADL deficits - to improve, our occupation therapists will perform initial evaluation of pt's status upon admission and devise an individualized program for Bathing, Bed mobility, Community Reintegratio n, Cooking, Dressing, Eating, Fine Motor Skills, Grooming, Homemaking, Kitchen Mobility, Laundry, Pat ient Education, Safety Awareness, Splinting - Positioning, Transfers(Toilet, Tub, Shower), and Wheel Chair Management Cognitive deficits - to improve, our occupation therapists will perform initial evaluation of pt's s tatus upon admission and devise an individualized program for Cognition - orientation Need for patient care coordinator - to improve, our occupation therapists will perform initial evaluation of pt's status upon admission and devise an individualized program for Caregiver Training Weakness - to improve, our occupation therapists will perform initial evaluation of pt's status upon admission and devise an individualized program for Aquatic Therapy, Balance, Endurance, UE ROM, and UE strengthening - Other See attached MAR (Medication Administration Record) - Diet Type Continue Regular - Diet - Liquid Texture Continue Regular - Tube Feed Continue N/A - Bladder care per protocol - Weight Bearing Precaution WBAT right LE - Skin care per protocol - Diet - Solid Texture Continue Regular - Shower allowing shower for Dementia, TBI, Stroke, or others FUNCTIONAL STATUS: UPDATED AT WEEKLY TEAM CONFERENCE - Bladder Same accident frequency: 7-Ind - No accidents in the past 7 days - Bowel Same accident frequency: 7-Ind - No accidents in the past 7 days - Walking Same score based on distance walked: 0(N/A) Same score based on distance walked: 1(<=50ft) - Wheelchair Same score based on distance traveled: 0(N/A) FUNCTIONAL STATUS: - Self-Care A. Eating sup B. Grooming Ind C. Bathing maxA D. Dressing - Upper Tylor E. Dressing - Lower modA F. Toileting modA - Sphincter Control G. Bladder control En H. Bowel control En - Transfers Control I. Bed/Chair/Wheelchair modA J. Toilet Tylor K. Tub/Shower maxA - Locomotion L. Walk/Wheelchair (B) modA M. Stairs Dep - Communication N. Comprehension (B) En O. Expression (B) Tylor - Social Cognition P. Social Interaction Ind Q. Problem Solving sup R. Memory Tylor - Endurance Fair - Balance Poor - Safety Awareness Fair QI SCORES: - Self-Care A. Eating 03-Partial/moderate assistance B. Oral hygiene 03-Partial/moderate assistance C. Toileting hygiene 03-Partial/moderate assistance E. Shower/bathe self 02-Substantial/maximal assistance F. Upper body dressing 03-Partial/moderate assistance G. Lower body dressing 02-Substantial/maximal assistance H. Putting on/taking off footwear 88-Not attempted due to medical condition or safety concerns - Mobility A. Roll left and right 03-Partial/moderate assistance B. Sit to lying 03-Partial/moderate assistance C. Lying to sitting on side of bed 03-Partial/moderate assistance D. Sit to stand 03-Partial/moderate assistance E. Chair/[id number] transfer 03-Partial/moderate assistance F. Toilet transfer 03-Partial/moderate assistance G. Car transfer 88-Not attempted due to medical condition or safety concerns I. Walk 10 feet 03-Partial/moderate assistance J. Walk 50 feet with two turns 88-Not attempted due to medical condition or safety concerns K. Walk 150 feet 88-Not attempted due to medical condition or safety concerns L. Walking 10 feet on uneven surfaces 88-Not attempted due to medical condition or safety concerns M. 1 step (curb) 88-Not attempted due to medical condition or safety concerns N. 4 steps 88-Not attempted due to medical condition or safety concerns O. 12 steps 88-Not attempted due to medical condition or safety concerns P. Picking up object 88-Not attempted due to medical condition or safety concerns R. Wheel 50 feet with two turns 88-Not attempted due to medical condition or safety concerns S. Wheel 150 feet 88-Not attempted due to medical condition or safety concerns - Bladder and Bowel Bladder continence Bowel continence - Endurance Fair - Balance Fair - Safety Awareness Fair CURRENT FUNC. DEFICITS: Self-Care, Mobility, Endurance, Balance, and Safety Awareness SIGNATURE PANEL: (MINING SPECULATOR)
[2021-10-08] MEDS: ATORVASTATIN 80 MG TAB PO SCH (19:59)
[2021-10-08] MEDS: MELATONIN 3 MG TABLET PO PRN (20:27)
[2021-10-09 04:58] LABS: Absolute Lymphocytes (CBC) 2.6 K/uL (0.7-4.9); Basophils % 0.9 % (0-1.3); Hematocrit 42.4 % (39.6-49.0); MPV 9.2 fL (7.6-11.3); RBC Red Blood Cell Count 4.55 M/uL (4.33-5.43)
[2021-10-09 05:31] LABS: Albumin 2.4 g/dL (3.4-5.0); BUN Blood Urea Nitrogen 16 mg/dL (7-18); Bicarbonate 29 mmol/L (21-32); Glucose Level 161 mg/dL (74-106); Potassium 3.9 mmol/L (3.5-5.1); Prealbumin 17.8 mg/dL (20-40); Sodium Level 140 mmol/L (136-145)
[2021-10-09] MEDS: ENOXAPARIN 40 MG/0.4 ML SQ SCH (07:08)
[2021-10-09] MEDS: GABAPENTIN 300 MG CAP PO SCH ×2 (08:34→19:38)
[2021-10-09] MEDS: ASPIRIN 81 MG CHEWABLE TABLET PO SCH (08:34)
[2021-10-09] MEDS: CRANBERRY FRUIT EXTRACT 400 MG CAP PO SCH ×2 (08:34→19:37)
[2021-10-09] MEDS: CLOPIDOGREL 75 MG TABLET PO SCH (08:35)
[2021-10-09] MEDS: lisinopriL 5 MG TAB PO SCH ×2 (08:36→19:38)
[2021-10-09] MEDS: THIAMINE HCL 100 MG TABLET PO SCH (08:37)
[2021-10-09] MEDS: MAGNESIUM OXIDE 400 MG TAB PO SCH ×2 (08:37→19:38)
[2021-10-09] MEDS: FAMOTIDINE 20 MG TAB PO SCH ×2 (08:38→19:38)
[2021-10-09] MEDS: TRAMADOL HCL 50 MG TAB PO PRN (08:38)
[2021-10-09] MEDS: DICLOFENAC SOD D.R. 75 MG TAB PO SCH ×2 (08:40→19:42)
[2021-10-09] MEDS: ATORVASTATIN 80 MG TAB PO SCH (19:42)
[2021-10-09] MEDS: MELATONIN 3 MG TABLET PO PRN (19:48)
[2021-10-09] MEDS: DOCUSATE NA/SENNA CONC 1 TAB PO PRN (19:48)
[2021-10-10] MEDS: ENOXAPARIN 40 MG/0.4 ML SQ SCH (06:35)
[2021-10-10] MEDS: TRAMADOL HCL 50 MG TAB PO PRN ×2 (06:37→12:21)
[2021-10-10 07:17] VITALS: BP 145/78; TEMP 97.6
[2021-10-10] MEDS: lisinopriL 5 MG TAB PO SCH (07:46)
[2021-10-10] MEDS: CLOPIDOGREL 75 MG TABLET PO SCH (07:47)
[2021-10-10] MEDS: THIAMINE HCL 100 MG TABLET PO SCH (07:47)
[2021-10-10] MEDS: CRANBERRY FRUIT EXTRACT 400 MG CAP PO SCH (07:47)
[2021-10-10] MEDS: DICLOFENAC SOD D.R. 75 MG TAB PO SCH (07:47)
[2021-10-10] MEDS: FAMOTIDINE 20 MG TAB PO SCH (07:48)
[2021-10-10] MEDS: ASPIRIN 81 MG CHEWABLE TABLET PO SCH (07:48)
[2021-10-10] MEDS: GABAPENTIN 300 MG CAP PO SCH (07:48)
[2021-10-10] MEDS: MAGNESIUM OXIDE 400 MG TAB PO SCH (07:48)
--- NOTE | 2021-10-10 09:49 | P.RH.PN ---
Estimated Length of Stay: 22 Expected Discharge Date: 10/10/21 Discharge Disposition Plan: Home Family Support: Yes Residential Goal: Mobility, Transfers, Self Care Vital Signs: Last Vital Signs Temp 97.6 F 10/10/21 07:16 Pulse 57 10/10/21 07:46 Resp 16 10/10/21 07:37 BP 145/78 H 10/10/21 07:46 Pulse Ox 95 10/10/21 07:37 Laboratory: Laboratory Last Values WBC 9.10 K/uL (4.3-10.9) D 10/09/21 04:34 RBC 4.55 M/uL (4.33-5.43) 10/09/21 04:34 Hgb 14.3 g/dL (13.6-17.9) 10/09/21 04:34 Hct 42.4 % (39.6-49.0) D 10/09/21 04:34 MCV 93.1 fL (80-100) 10/09/21 04:34 MCH 31.4 pg (27.0-35.0) 10/09/21 04:34 MCHC 33.8 g/dL (32.0-36.0) 10/09/21 04:34 RDW 12.9 % (12.1-15.2) 10/09/21 04:34 Plt Count 271 K/uL (152-406) D 10/09/21 04:34 MPV 9.2 fL (7.6-11.3) D 10/09/21 04:34 Neutrophils % 49.0 % (41.7-73.7) 10/09/21 04:34 Lymphocytes % 29.0 % (15.3-44.8) 10/09/21 04:34 Monocytes % 8.2 % (3.3-12.3) 10/09/21 04:34 Eosinophils % 12.9 % (0-4.4) H 10/09/21 04:34 Basophils % 0.9 % (0-1.3) 10/09/21 04:34 Absolute Neutrophils 4.4 K/uL (1.8-8.0) 10/09/21 04:34 Absolute Lymphocytes 2.6 K/uL (0.7-4.9) 10/09/21 04:34 Absolute Monocytes 0.7 K/uL (0.1-1.3) 10/09/21 04:34 Absolute Eosinophils 1.2 K/uL (0-0.5) H 10/09/21 04:34 Absolute Basophils 0.1 K/uL (0-0.5) 10/09/21 04:34 Sodium 140 mmol/L (136-145) 10/09/21 04:34 Potassium 3.9 mmol/L (3.5-5.1) 10/09/21 04:34 Chloride 106 mmol/L (98-107) 10/09/21 04:34 Carbon Dioxide 29 mmol/L (21-32) 10/09/21 04:34 BUN 16 mg/dL (7-18) 10/09/21 04:34 Creatinine 0.68 mg/dL (0.55-1.3) 10/09/21 04:34 Estimated GFR > 90 mL/min (=/>90) 10/09/21 04:34 Glucose 161 mg/dL (74-106) H 10/09/21 04:34 Uric Acid 3.5 mg/dL (3.5-7.2) 09/25/21 14:27 Calcium 8.5 mg/dL (8.5-10.1) 10/09/21 04:34 Magnesium 2.0 mg/dL (1.8-2.4) 10/09/21 04:34 Albumin 2.4 g/dL (3.4-5.0) L 10/09/21 04:34 Prealbumin 17.8 mg/dL (20-40) L 10/09/21 04:34 Urine Color Yellow (Yellow) 09/18/21 18:55 Urine Appearance Clear (Clear) 09/18/21 18:55 Urine pH 6.0 (5.0-7.0) 09/18/21 18:55 Ur Specific [place] 1.020 (1.005-1.030) 09/18/21 18:55 Glucose (UA)(Auto) Negative (Negative) 09/18/21 18:55 Urine Ketones Negative (Negative) 09/18/21 18:55 Urine Blood 2+ (Negative) H 09/18/21 18:55 Urine Nitrite Negative (Negative) 09/18/21 18:55 Urine Bilirubin Negative (Negative) 09/18/21 18:55 Urine Urobilinogen 0.2 mg/dL (0.2-1.0) 09/18/21 18:55 Ur Leukocyte Esterase Negative (Negative) 09/18/21 18:55 Urine RBC 10-20 /HPF (NONE SEEN) H 09/18/21 18:55 Urine WBC <5 /HPF (<5) 09/18/21 18:55 Ur Squamous Epith Cells <5 /HPF (NONE SEEN) 09/18/21 18:55 Urine Bacteria 20-50 /HPF (NONE SEEN) H 09/18/21 18:55 Urine Mucus 1+ /HPF (NONE SEEN) 09/18/21 18:55 Urine Culture Reflexed Not needed 09/18/21 18:55 Urine Total Protein Negative (Negative) 09/18/21 18:55 SARS-CoV-2 Rap RNA(RT-PCR) Negative (NEGATIVE) 09/22/21 07:17 Weight: 190 lb 9.6 oz Wound Present: No Closed Surgical Incision Present: No Negative Pressure Wound Therapy Present: No Physician Update: Labs reviewed and are stable. He has made good progress with all therapy. He is ready for discharge home today with [facility] for physical, occupational and speech therapy. Comment: no skin breakdown. Functional Improvement: Patient has met all short-term goals at this time, and has shown marked improvement w/ progression toward long-term goals. Patient is at the cusp of being Independent w/ gait tx. Patient continues, at times, to experience issues w/ pacing, however has begun to be self-aware of stated issue. Functional Improvement Occupational Therapy: Pt making progress toward functional goals. Once pain and inflammation under control, pt with improved function. ADLs, pt is CGA with Bathing, toileting, LB dressing and toilet/shower transfers. Mod assist with socks. Primary limitation is impulsivity and safety. Improved volitary flexion right fingers. Summary: Patient's care plan and usp goals have been reviewed and revised as necessary. Please see the Rehabilitation Signature page for all necessary signatures.
--- NOTE | 2021-10-18 19:04 | R.DS ---
DISCHARGE SUMMARY FACILITY [facility] MR# [id number] NAME MICHEAL LIN ADDRESS [address] [place] [address] [address] [id number] PHONE DATE OF 1955 AGE 66 SSN# [id number] GENDER Male MARITAL STATUS Single (Never ) ENCOUNTER PHYSICIAN Dr. Charli Quiroga M.D. REFERRING DOCTOR PHILIP RETANA MD REFERRING FACILITY [facility] DISCHARGE DIAGNOSIS: - Stroke 01 - Right Body (Left Brain) (01.2) STROKE. 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 NURSING: - Shower allowing shower - Bladder care per protocol - Skin care per protocol PRECAUTIONS: - Weight Bearing Precaution WBAT right LE ACTIVITIES OOB only with supervision THERAPIES: - Dietary and Nutrition Adequate Nutrition Nutritional Education Nutritional Supplements - Occupational Therapy Cognitive Retraining Evaluate and Treat ADL Training Transfer Training Adaptive Equipment UE Strengthening - Speech Therapy Cognitive Training Expressive Language Skills Memory Strategies Receptive Language Skills Speech Intelligibility Training - Physical Therapy Gait Training Balance Training Evaluate and Treat Transfer Training Mobility Training Safety Awareness LE Strengthening HISTORY OF PRESENT ILLNESS: Pt. is a 66 yo Right-handed male.On 09/15/2021 Pt. presented to [facility] with sudden onset of r ight-side weakness.On 09/15/2021 he was admitted to [facility] with diagnosis STROKE.His impairme nt category is Stroke 01 - Right Body (Left Brain) (01.2).Pre-morbidly, Pt. was independent/mod-I in Locomotion, Social Cognition, Balance, Transfers Control, and Safety Awareness; and he had good Sphi ncter Control, Self-Care, and Communication.Currently, he has deficits of Locomotion, Safety Awarenes s, Social Cognition, Balance, Transfers Control, Sphincter Control, Self-Care, Endurance, and Communi cation.Pt. is now referred to [facility] for acute in-patient rehabilitation i n order to maximize patient's functional independence in activities of daily living, strength, ROM, a nd mobility.- Rehab Goal Patient has realistic goal of being discharged at assistance level 7-Ind to reside at Home with Pt s elf. DIET - LIQUID TEXTURE: On 09/18/2021 Pt was upgraded to Regular Diet - Liquid Texture. DIET - SOLID TEXTURE: On 09/18/2021 Pt was upgraded to Regular Diet - Solid Texture. DIET TYPE: On 09/18/2021 Pt was upgraded to Regular Diet Type. TUBE FEED: On 09/18/2021 Pt was changed to N/A Tube Feed. WEIGHT BEARING PRECAUTION: On 09/18/2021 the following precautions were added for the patient: Weight Bearing Precaution - WBAT right LE. On 09/22/2021 the following precautions were added for the patient: Weight Bearing Precaution - WBAT right LE. On 09/22/2021 the following precautions were removed for the patient: Weight Bearing Precaution - WB AT right LE. On 09/23/2021 the following precautions were added for the patient: Weight Bearing Precaution - WBAT right LE. DISCHARGE PHYSICAL EXAM - Gen Alert and awake Lying in bed No apparent distress Oriented to: person, time, and place - Skin No skin breakdown. No abnormalities - Eyes No abnormalities - ENMT No abnormalities - Neck No abnormalities - CVS RRR - Chest No abnormalities - Resp Clear to auscultation - Abd Soft - GI nondistended Deferred - No abnormalities - Ext Mild right upper and lower extremity edema. - MSK 2/5 weakness in right upper and 3/5 weakness in right lower extremity. - Neuro 2/5 weakness in right upper and 3/5 weakness in right lower extremity. Decreased sensation on right v ersus left upper and lower extremity. FUNCTIONAL STATUS: - Self-Care A. Eating 5-sup B. Grooming 7-Ind C. Bathing 5-sup D. Dressing - Upper 5-sup E. Dressing - Lower 6-En F. Toileting 6-En - Sphincter Control G. Bladder control 6-En H. Bowel control 6-En - Transfers Control I. Bed/Chair/Wheelchair 6-En J. Toilet 6-En K. Tub/Shower 5-sup - Locomotion L. Walk/Wheelchair (B) 6-En M. Stairs 5-sup - Communication N. Comprehension (B) 6-En O. Expression (B) 6-En - Social Cognition P. Social Interaction 7-Ind Q. Problem Solving 5-sup R. Memory 6-En - Endurance Fair - Balance Poor - Safety Awareness Fair QI SCORES: - Self-Care A. Eating 03-Partial/moderate assistance B. Oral hygiene 03-Partial/moderate assistance C. Toileting hygiene 03-Partial/moderate assistance E. Shower/bathe self 02-Substantial/maximal assistance F. Upper body dressing 03-Partial/moderate assistance G. Lower body dressing 02-Substantial/maximal assistance H. Putting on/taking off footwear 88-Not attempted due to medical condition or safety concerns - Mobility A. Roll left and right 03-Partial/moderate assistance B. Sit to lying 03-Partial/moderate assistance C. Lying to sitting on side of bed 03-Partial/moderate assistance D. Sit to stand 03-Partial/moderate assistance E. Chair/mro-dh-etgmr transfer 03-Partial/moderate assistance F. Toilet transfer 03-Partial/moderate assistance G. Car transfer 88-Not attempted due to medical condition or safety concerns I. Walk 10 feet 03-Partial/moderate assistance J. Walk 50 feet with two turns 88-Not attempted due to medical condition or safety concerns K. Walk 150 feet 88-Not attempted due to medical condition or safety concerns L. Walking 10 feet on uneven surfaces 88-Not attempted due to medical condition or safety concerns M. 1 step (curb) 88-Not attempted due to medical condition or safety concerns N. 4 steps 88-Not attempted due to medical condition or safety concerns O. 12 steps 88-Not attempted due to medical condition or safety concerns P. Picking up object 88-Not attempted due to medical condition or safety concerns R. Wheel 50 feet with two turns 88-Not attempted due to medical condition or safety concerns S. Wheel 150 feet 88-Not attempted due to medical condition or safety concerns - Bladder and Bowel Bladder continence Bowel continence - Endurance Fair - Balance Fair - Safety Awareness Fair DISCHARGE INSTRUCTIONS: - N/A Aspirin 81 mg and Plavix 75 mg daily. DISCHARGE PLAN, FOLLOW UP CARE PROVISIONS: - Estimated Length of Stay (days) 17. - Consensus on plan Discharge plan has been discussed with primary caregiver. Patient/Family is in agreement with the mikel n. Primary caregiver is in agreement with the plan. - Patient/Family Goals Return home independently. - Planned Living Setting Upon Discharge Home, to live alone. Transitional Living. Primary caregiver: Pt self. 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
== END 2021-10-10 16:00 | disposition home health service (06) | DRG 57 ==
LOC: 5TH 17:17
PROVIDERS: ADMIT Psychiatry & Neurology Neurology with Special Qualifications in Child Neurology; ATTEND Psychiatry & Neurology Neurology with Special Qualifications in Child Neurology
DX: I69.351 Hemiplegia and hemiparesis following cerebral infarction affecting right dominant side (principal); I10 Essential (primary) hypertension; E11.9 Type 2 diabetes mellitus without complications; F17.210 Nicotine dependence, cigarettes, uncomplicated; E78.5 Hyperlipidemia, unspecified; Z20.822 Contact with and (suspected) exposure to COVID-19
CPT/HCPCS: 36415; 70450; 80048; 81001; 82040; 83735; 84134; 84550; 85025; 87086; 87088; 92507; 92523; 92526; 92610; 93971; 97110; 97112; 97116; 97124; 97127; 97161; 97530; 97542; J1650; J7512; U0002; U0003

== ENCOUNTER 2022-05-27 12:51 | Emergency (ER) | payer OTHER ==
[2022-05-27] MEDS ORDERED: HYDROCODONE/APAP 10/325 TAB ONE (13:26)
--- NOTE | 2022-05-27 13:58 | RAD REPORT ---
EXAM DESCRIPTION: RAD - Shoulder Right 2 View - 05/27/2022 1:38 pm CLINICAL HISTORY: PAIN COMPARISON: Shoulder Right 2 View dated 11/21/2021 FINDINGS/IMPRESSION: Mildly comminuted fracture of the right proximal humerus involving the surgical neck, greater tuberosity, and likely the lesser tuberosity. No dislocation. Right AC joint degenerat redd changes. Subacromial spurring.
--- NOTE | 2022-05-27 13:58 | RAD REPORT ---
EXAM DESCRIPTION: RAD - Chest Single View - 05/27/2022 1:38 pm CLINICAL HISTORY: PAIN COMPARISON: No comparisons FINDINGS: Lines: None. Lungs: No evidence of edema or pneumonia. Pleural: No significant pleural effusions or pneumothorax. Cardiac: The heart size is within normal limits. Bones: No acute fractures. Other: IMPRESSION: No acute cardiopulmonary disease.
--- NOTE | 2022-05-27 14:53 | EDPHYS ---
Physician Documentation [facility] Name: Jerson Aaron Age: 67 yrs Sex: Male : 1955 Arrival Date: 05/27/2022 Time: 12:52 Bed 11 Private MD: ED Physician Kayode Rincon HPI: 05/27 22:33 This 67 yrs old Male presents to ER via Ambulatory with complaints of Fall kb Injury, Arm Pain, Chest Pain. 22:33 Details of fall: The patient fell from an upright position. Onset: The symptoms/episode kb began/occurred yesterday. Associated injuries: The patient sustained anterior aspect of right shoulder and posterior aspect of right shoulder, decreased range of motion, painful injury. Severity of symptoms: At their worst the symptoms were moderate, in the emergency department the symptoms are unchanged. The patient has not experienced similar symptoms in the past. The patient has not recently seen a physician. Patient reports he slipped and fell yesterday landing on right shoulder. States he has previous rotator cuff issue on that side that he is supposed to have surgery on. Patient reports a pop in right shoulder whenever he fell.. Historical: - Allergies: 13:15 No Known Allergies; 6 - PMHx: 13:15 Hypertensive disorder; Cerebrovascular accident; [facility] - PSHx: 13:15 None; [facility] - Immunization history:: Adult Immunizations up to date. - Social history:: Smoking status: Patient reports the use of cigarette tobacco products. ROS: 22:32 Constitutional: Negative for fever, chills, and weight loss. kb 22:32 MS/extremity: Positive for decreased range of motion, pain, of the posterior aspect of right shoulder and anterior aspect of right shoulder. 22:32 All other systems are negative. Exam: 22:32 Constitutional: This is a well developed, well nourished patient who is awake, alert, kb and in no acute distress. Head/Face: Normocephalic, atraumatic. ENT: Moist Mucous membranes Cardiovascular: Regular rate and rhythm with a normal S1 and S2. No gallops, murmurs, or rubs. No pulse deficits. Respiratory: Respirations even and unlabored. No increased work of breathing. Talking in full sentences Skin: Warm, dry with normal turgor. Normal color. MS/ Extremity: Pulses equal, no cyanosis. Neurovascular intact. Full, normal range of motion. Neuro: Awake and alert, GCS 15, oriented to person, place, time, and situation. Moves all extremities. Normal gait. Psych: Awake, alert, with orientation to person, place and time. Behavior, mood, and affect are within normal limits. 22:32 Musculoskeletal/extremity: Extremities: grossly normal except: noted in the posterior aspect of right shoulder and anterior aspect of right shoulder: decreased ROM, pain, swelling, tenderness, ROM: limited active range of motion, Circulation is intact in all extremities. Sensation intact. Vital Signs: 13:12 BP 137 / 90; Pulse 74; Resp 18; Temp 97.6; Pulse Ox 97% on R/A; Weight 90.72 kg; Height jh6 5 ft. 11 in. (180.34 cm); Pain 10/10; 13:12 Body Mass Index 27.89 (90.72 kg, 180.34 cm) 6 MDM: 13:07 Patient medically screened. kb 22:29 Data reviewed: vital signs, nurses notes. Data interpreted: Pulse oximetry: on room air kb is 97 %. Interpretation: normal. Counseling: I had a detailed discussion with the patient and/or guardian regarding: the historical points, exam findings, and any diagnostic results supporting the discharge/admit diagnosis, radiology results, the need for outpatient follow up, a orthopedic surgeon, to return to the emergency department if symptoms worsen or persist or if there are any questions or concerns that arise at home. 22:31 ED course: Patient educated on diagnosis. Educated to continue using sling that he has kb been wearing in the follow-up with orthopedist. Patient has a follow-up appointment for June 11 with orthopedist.'. 05/27 13:05 Order name: Shoulder Right (2 View) XRAY; Complete Time: 14:02 [facility] 05/27 13:05 Order name: Chest Single View XRAY; Complete Time: 14:02 [facility] Administered Medications: 13:19 Drug: [place] (HYDROcodone-acetaminophen) 10 mg-325 mg 1 tabs Route: PO; [facility] Disposition: 05/28 09:28 Co-signature as Attending Physician, Kayode Rincon DO I was immediately available on-site ms3 in the Emergency Department for consultation in the care of the patient.. Disposition Summary: 05/27/22 14:52 Discharge Ordered Location: Home kb Condition: Stable kb Diagnosis - Impacted fracture proximal humerus - right arm kb Followup: kb - With: Emergency Department - When: As needed - Reason: Worsening of condition Followup: kb - With: Private Physician - When: 2 - 3 days - Reason: Recheck today's complaints, Continuance of care, Re-evaluation by your physician Discharge Instructions: - Discharge Summary Sheet kb - Humerus Fracture Treated With Immobilization, Gzof-dx-Naev kb Forms: - Medication Reconciliation Form kb - Thank You Letter kb - Antibiotic Education kb - Prescription Opioid Use kb Prescriptions: - Diclofenac Sodium 75 mg Oral tablet,delayed release (DR/EC) - take 1 tablet by ORAL route 2 times per day As needed; 30 tablet; Refills: 0, kb Product Selection Permitted Signatures: Dispatcher [employer] EDMS Marie Mijares, BABAK SANTIAGO-Kayode Jerry, DO ms3 Aissatou Cha RN RN jh6
--- NOTE | 2022-05-27 14:53 | ER ---
Nurse's Notes [facility] Name: Jerson Aaron Age: 67 yrs Sex: Male : 1955 Arrival Date: 05/27/2022 Time: 12:52 Bed 11 Private MD: Diagnosis: Impacted fracture proximal humerus - right arm Presentation: 05/27 13:12 Chief complaint: Patient states: fell yesterday landing on rt elbow. now having rt jh6 shoulder pain. pt placed in sling in triage. Coronavirus screen: Vaccine status: Patient reports being unvaccinated. Ebola Screen: Patient negative for fever greater than or equal to 101.5 degrees Fahrenheit, and additional compatible Ebola Virus Disease symptoms Patient denies exposure to infectious person. Patient denies travel to an Ebola-affected area in the 21 days before illness onset. Initial Sepsis Screen: Does the patient meet any 2 criteria? No. Patient's initial sepsis screen is negative. Does the patient have a suspected source of infection? No. Patient's initial sepsis screen is negative. Risk Assessment: Do you want to hurt yourself or someone else? Patient reports no desire to harm self or others. Onset of symptoms was May 26, 2022. 13:12 Method Of Arrival: Ambulatory [facility] 13:12 Acuity: DIVYA 4 jh6 Triage Assessment: 13:16 General: Appears in no apparent distress. Behavior is calm, cooperative. Pain: 6 Complains of pain in anterior aspect of right shoulder and posterior aspect of right shoulder Pain currently is 10 out of 10 on a pain scale. Quality of pain is described as sharp, Pain began suddenly, Is continuous, Aggravated by exercise, increased activity, repositioning. Historical: - Allergies: 13:15 No Known Allergies; jh6 - PMHx: 13:15 Hypertensive disorder; Cerebrovascular accident; [facility] - PSHx: 13:15 None; [facility] - Immunization history:: Adult Immunizations up to date. - Social history:: Smoking status: Patient reports the use of cigarette tobacco products. Screenin:19 Abuse screen: Denies threats or abuse. Nutritional screening: No deficits noted. jb4 Tuberculosis screening: No symptoms or risk factors identified. Fall Risk None identified. Assessment: 15:19 Reassessment: Patient appears in no apparent distress at this time. Patient and/or jb4 family updated on plan of care and expected duration. Pain level reassessed. Patient is alert, oriented x 3, equal unlabored respirations, skin warm/dry/pink. Vital Signs: 13:12 BP 137 / 90; Pulse 74; Resp 18; Temp 97.6; Pulse Ox 97% on R/A; Weight 90.72 kg; Height 6 5 ft. 11 in. (180.34 cm); Pain 10/10; 13:12 Body Mass Index 27.89 (90.72 kg, 180.34 cm) 6 ED Course: 12:52 Patient arrived in ED. as 12:59 Marie Mijares FNP-C is [facility]. kb 12:59 Kayode Rincon DO is Attending Physician. kb 13:15 Triage completed. 6 13:16 Arm band placed on left wrist. jh6 13:40 Shoulder Right (2 View) XRAY In Process Unspecified. EDMS 13:40 Chest Single View XRAY In Process Unspecified. EDMS 14:37 Radha Cage, RN is Primary Nurse. dalila 15:19 Patient has correct armband on for positive identification. Bed in low position. Call jb4 light in reach. Side rails up X 1. 15:19 No provider procedures requiring assistance completed. Patient did not have IV access jb4 during this emergency room visit. Administered Medications: 13:19 Drug: [place] (HYDROcodone-acetaminophen) 10 mg-325 mg 1 tabs Route: PO; 6 Medication: 15:19 VIS not applicable for this client. jb4 Outcome: 14:52 Discharge ordered by . kb 15:19 Discharged to home ambulatory. jb4 15:19 Condition: stable 15:19 Discharge instructions given to patient, Instructed on discharge instructions, follow up and referral plans. medication usage, Demonstrated understanding of instructions, follow-up care, medications, Prescriptions given X 1. 15:21 Patient left the ED. jb4 Signatures: Dispatcher [employer] EDMS Marie Mijares FNP-C FNP-Zayra Zapata James RN RN jb4 Radha Cage, CAT RN jl7 Aissatou Cha RN RN jh6 Corrections: (The following items were deleted from the chart) 15:20 15:19 Patient has correct armband on for positive identification. Bed in low position. jb4 Call light in reach. Side rails up X 1. Adult w/ patient. jb4 15:20 15:19 Fall Risk None identified. jb4 jb4
[2022-05-27 15:33] VITALS: BP 137/90; TEMP 97.6; O2SAT 97
== END 2022-05-27 15:21 | disposition home or self-care (01) ==
LOC: ER 12:51
DX: S42.201A Unspecified fracture of upper end of right humerus, initial encounter for closed fracture (principal); I10 Essential (primary) hypertension; Z86.73 Personal history of transient ischemic attack (TIA), and cerebral infarction without residual deficits; Z72.0 Tobacco use
CPT/HCPCS: 71045

== ENCOUNTER 2024-12-05 06:08 | Day surgery (SDC) | payer OTHER ==
[2024-11-29 15:06] LABS: Absolute Basophils 0.1 K/uL (0-0.5); Absolute Eosinophils 0.1 K/uL (0-0.5); Absolute Lymphocytes (CBC) 2.8 K/uL (0.7-4.9); Absolute Monocytes 0.9 K/uL (0.1-1.3); Absolute Neutrophil 6.2 K/uL (1.8-8.0); Basophils % 0.5 % (0-1.3); Eosinophils % 0.8 % (0-4.4); Hematocrit 44.5 % (39.6-49.0); Hemoglobin 15.8 g/dL (13.6-17.9); Lymphocytes % 27.7 % (15.3-44.8); MCHC 35.6 g/dL (32.0-36.0); MCV 89.9 fL (80-100); MPV 9.4 fL (7.6-11.3); Monocytes % 9.3 % (3.3-12.3); Neutrophils % 61.7 % (41.7-73.7); Platelets 219 thou/uL (152-406); RBC Red Blood Cell Count 4.95 M/uL (4.33-5.43); Red Cell Distribution Width 12.9 % (12.1-15.2)
--- NOTE | 2024-11-29 15:11 | RAD REPORT ---
EXAMINATION: TWO VIEW CHEST XR CLINICAL INDICATION: Pre-op pending space oar and fiducial seed implant TECHNIQUE: 2 views of the chest was performed. COMPARISON: 05/27/2022 FINDINGS: The lungs are hyperexpanded suggesting COPD. The heart is normal in size. No displaced fractures evid ent. IMPRESSION: COPD is suspected without acute finding identified.
[2024-11-29 15:22] LABS: Anion Gap 9.9 mEq/L (5.0-15.0); Potassium 3.9 mEq/L (3.5-5.1)
[2024-11-29 15:30] LABS: PT Prothrombin Time 11.6 SECONDS (9.4-12.5); PTT, Activated Partial Thromb 32.9 SECONDS (24.3-36.9); Protime INR 1.11
[2024-12-05] MEDS ORDERED: Ringers Lactate 1,000 ML IV ONE (06:27)
[2024-12-05] MEDS ORDERED: ONDANSETRON 4 MG/2 ML VIAL ONE ×2 (07:16→13:38)
[2024-12-05] MEDS ORDERED: FENTANYL CITR 100 MCG/2 ML ONE (07:16)
[2024-12-05] MEDS ORDERED: propofoL 200 MG/20 ML VIAL IV ONE (07:16)
[2024-12-05] MEDS: CEFAZOLIN SODIUM 2 GM/VIAL ONE (08:05)
[2024-12-05] MEDS ORDERED: dexAMETHasone 10 MG/ML VIAL ONE (08:10)
[2024-12-05] MEDS ORDERED: CODEINE 30MG/APAP 300MG TAB PO PRN (08:39)
--- NOTE | 2024-12-05 08:52 | P.OP ---
Date of Service: 12/05/24 Preoperative diagnoses: Grade group 3 adenocarcinoma the prostate On androgen deprivation therapy with Orgovyx Postoperative diagnoses: Grade group 3 adenocarcinoma the prostate On androgen deprivation therapy with Orgovyx Principal procedures: Transrectal ultrasound-guided insertion of 2 fiducial markers Transrectal ultrasound-guided SpaceOAR gel insertion Indication for procedure: Patient is a 69-year-old gentleman who underwent biopsy for elevated PSA revealing grade group 3 adenocarcinoma the prostate. He was counseled on options for management of his unfavorable intermediate risk prostate cancer, and he elected to proceed with radiation therapy plus androgen deprivation therapy. He was started on Orgovyx and presents today for SpaceOAR gel insertion and fiducial markers in preparation for radiation. Procedure note: The patient was consented in the preoperative holding area before being transferred to the operative suite where general anesthesia was induced. He was given Ancef 2 g IV antimicrobial prophylaxis, and pneumoboots were provided for DVT prophylaxis. He was placed in the high lithotomy position, padded and secured to the table appropriately. His genitalia was elevated out of the perineal region using an Ioban drape, and the transrectal ultrasound probe was placed via his anus into his rectum with relative ease. The prostate was visualized and held in position using a stepper device. The prostate was somewhat difficult to visualize owing to its small size and very dark dense appearance on ultrasound, requiring greater than normal pressure on the base of the prostate from the probe in order to visualize the prostate. The bladder was full, and the seminal vesicles were visualized without any enlargement or mass lesion detectable. I was able to visualize from the perineum all the way through the base of the prostate. His perineum was prepped with Betadine and the transrectal ultrasound probe was covered with a blue towel. I then angled the probe to the patient's left side in order to visualize his left Dwayne prostate, and visualizing in sagittal dimension, I visualized the insertion of the fiducial marker needle through the perineum and watched it going in through the urogenital diaphragm into the the left Dwayne prostate, avoiding the urethra and targeting the mid gland laterally. The marker was successfully placed as evidenced ultrasonographically, and then I turned my attention to the patient's right Dwayne prostate and similarly placed a needle through the perineum into the right Dwayne prostate as evidenced ultrasonographically placing a fiducial marker similarly in the right lateral aspect of the mid gland successfully. I then turned my attention back to the midline visualized in the urethra and the rectum with a thin white stripe of prerectal fat visualized. I was then able to navigate the SpaceOAR needle primed with saline through the perineum above the rectal hump and slowly navigated through the very thin prerectal fat plane all the way until I reached the mid zone of the prostate about 3[address] the apex to the base. I was able to do this successfully without any obvious injury into the rectum. I then confirmed the needle was present within the midline of the prostate in axial dimension before aspirating to ensure no blood or succus and then injecting saline into see which area of the prostate the SpaceOAR gel would travel relative to hydrodissection performed. Initial hydrodissection did seem to deviate to the left lateral aspect of the prostate; so I reposition the needle more toward the right Dwayne prostate and again aspirated in that region before injecting an additional bolus of saline to Hydrocet and that space. This did more consistently hydrodissect across the midline of the prostate symmetrically between the right and the left; so I left a needle in this position and switched out the saline syringe for the SpaceOAR gel components which had been primed. I then injected the 2 SpaceOAR gel components continuously in that position and it did create a beautiful separation between the base of the prostate and the rectum that essentially covered the right side and the left side of the prostate nicely from the apex to the base as evidenced ultrasonographically in the sagittal dimension confirmed on axial scan. I thus removed the needle and remove the Ioban drape cleaning the Betadine from his perineum. He was then taken out of the lithotomy position, awakened from general anesthesia, transferred to a stretcher, and then transferred to the recovery room in good condition. Complications: None Discharge disposition: He may be scheduled for follow-up in about 6 months, or about 3 months after he completes his radiation treatment. Of course, he may be seen sooner if he has any issues of urologic nature that arise during the radiation therapy, or if he has any signs of complication from today's procedure.
[2024-12-05 09:35] VITALS: BP 140/84; TEMP 97; O2SAT 78
[2024-12-05] MEDS ORDERED: dexAMETHasone 4 MG/ML VIAL ONE (13:38)
[2024-12-05] MEDS ORDERED: LIDOCAINE 2% MPF 5 ML VIAL ONE (13:38)
[2024-12-05] MEDS ORDERED: KETOROLAC 30 MG/ML INJ ONE (13:38)
[2024-12-05] MEDS ORDERED: KETAMINE HCL IN 0.9 % NACL 50 MG/5 ML SYRINGE IV ONE (13:38)
== END 2024-12-05 10:20 | disposition home or self-care (01) ==
LOC: OR 06:08
PROVIDERS: ATTEND Urology
PROC: 0VH43YZ Insertion of Other Device into Prostate and Seminal Vesicles, Percutaneous Approach (ICD-10-PCS; principal; 2024-12-05 07:30)
DX: C61 Malignant neoplasm of prostate (principal)
CPT/HCPCS: 85025; 87086; 80048; 36415; 85610; 85730; 71046; 55874; J2704; J3010; J2405; J7120; C1889; 87088; J1100; J2003